=== PATIENT | female | born 1965 | race Caucasian/White ===

== ENCOUNTER → 2019-09-28 | Outpatient (CLI) | payer MEDICAID, MEDICARE ==
[~2019-09-28] MED LIST: AMLO10TA5 PO; CYCL10TA PO; MM S100C PO; MULTCAP PO; OMEP40CA97 PO; PREM0.452 PO; PROAAER10; SENN8.6T17 PO; SIMV20TA22 PO; TRAZ-163 PO
--- NOTE | 2019-09-28 15:05 | REP ---
CT CHEST WITH IV CONTRAST: COMPARISON: CT abdomen 09/23/2018 In the right upper lobe posteromedially on image 35, there is a 5 mm nodular density. In the lateral right lower lobe, there is a 4 mm nodular density on image 49. There is a band of parenchymal density in the right middle lobe which was not seen on the prior CT of the abdomen representing atelectasis or infiltrate. There is an oval peripheral bulla seen anteriorly in the right middle lobe as was present on prior study. A tiny 3 mm subpleural nodular density in the right costophrenic angle is stable. There is a mild nodular pleural thickening in the left major fissure. Subcentimeter subpleural nodular density in the left lower lobe inferiorly is stable as seen on image 82. Nonenlarged lymph nodes are seen in the axillary regions as well as in the mediastinum and hilar regions. No significant adenopathy is seen. There is a mild atherosclerotic calcification of the thoracic aorta without aneurysm. There is a hypodense nodule in the lower left thyroid measuring 2.5 x 1.4 cm. This should be further evaluated with ultrasound. The heart is normal in size. There is no pleural or pericardial effusion. A few tiny cysts are seen in the liver. The patient has had a prior cholecystectomy. Intrarenal calculus in the upper pole of the left kidney measures 8 mm in maximum diameter. There is a cyst in the anterior mid left kidney which measures approximately 3.6 cm in maximum diameter. IMPRESSION: In the right upper lobe, there is a 5 mm parenchymal nodular density and in the right lower lobe a 4 mm parenchymal nodular density. In the right middle lobe, there is a band of atelectasis or infiltrate not seen on the prior study of 09/23/2018. Recommend followup CT of the chest in 3-6 months. Nodule left lobe of the thyroid. Recommend thyroid ultrasound to further evaluate. Electronically Signed by John Kelly MD 09/28/2019 08:03 P
== END ==
LOC: M RAD 10:35
PROVIDERS: ATTEND Nurse Practitioner Family
DX: Z72.0 Tobacco use (principal)

== ENCOUNTER → 2019-10-10 | Outpatient (CLI) | payer MEDICARE, MEDICAID ==
[~2019-10-10] MED LIST changes: -TRAZ-163 PO; +TRAZ-257 PO
--- NOTE | 2019-10-11 02:41 | REP ---
Clinical: Thyroid nodule. Technique: Real time santizo scale and color evaluation using linear high frequency transducer. Findings: The right thyroid lobe measures 4.9 x 1.2 x 1.0 cm and appears essentially normal. The isthmus measures 1.2 mm in width. Too small nonspecific cysts are identified adjacent to the isthmus measuring 3.7 x 2.9 x 1.6 mm on the right and 2.2 x 2.2 x 1.1 mm on the left. The left thyroid lobe measures 5.4 x 1.6 x 1.8 cm and includes 5.8 x 4.0 x 2.7 mm nonspecific upper pole nodule and 30 x 26 x 16 mm complex lower pole cyst with mural soft tissue components. Impression: 1. Primary complex cystic lesion in the left lobe. 2. Smaller nodule and cysts as noted above. Electronically Signed by Aly Montgomery MD 10/11/2019 02:32 A
== END ==
LOC: M RAD 12:30
PROVIDERS: ATTEND Nurse Practitioner Family
DX: E04.1 Nontoxic single thyroid nodule (principal); Z28.29 Immunization not carried out because of patient decision for other reason

== ENCOUNTER → 2019-11-07 | Outpatient (REF) | payer MEDICARE, MEDICAID ==
[2019-11-07 16:33] LABS: FREE T4 1.07 NG/DL (0.76-1.46); THYROID STIMULATING HORMONE 2.11 uIU/ML (0.358-3.740)
== END ==
LOC: M LABDRAW1 15:28
PROVIDERS: ATTEND Nurse Practitioner Family
DX: E04.2 Nontoxic multinodular goiter (principal)

== ENCOUNTER → 2019-11-08 | Outpatient (REF) | payer MEDICARE, MEDICAID | LOC: M LAB REF 11:49 | PROVIDERS: ATTEND Internal Medicine Endocrinology, Diabetes & Metabolism | DX: E04.1 Nontoxic single thyroid nodule (principal) ==

== ENCOUNTER → 2019-11-29 | Outpatient (REF) | payer MEDICARE, MEDICAID | LOC: M LAB REF 13:06 | PROVIDERS: ATTEND Internal Medicine Endocrinology, Diabetes & Metabolism | DX: E04.1 Nontoxic single thyroid nodule (principal) ==

== ENCOUNTER → 2020-01-06 | Outpatient (CLI) | payer MEDICARE, MEDICAID ==
[~2020-01-06] MED LIST changes: +CYCL-707 PO; -CYCL10TA PO; +INCR1INH INH; +ISOVUE-370 76% 100ML VIAL (Q9967) As Ordered ONE
--- NOTE | 2020-01-06 11:58 | REP ---
REASON FOR EXAM: Followup COMPARISON: 09/28/2019 Contrast 100 mL Isovue 370. The mediastinum and pulmonary hilar are unchanged. There is no evidence of a mass or adenopathy. There are no pleural or pericardial effusions. The imaged upper abdomen and imaged osseous structures are unchanged. Evaluation of the lung goff shows no change in the 5 mm sized right upper lobe nodule. The 4 mm sized nodule in the right lower lobe is unchanged. The right middle lobe, curvilinear density is less prominent. There are no new abnormal nodules, masses, or opacities. There are a few tiny stable scattered pleural based nodules, the largest is in the left lower lobe measuring 5 mm. IMPRESSION: Stable CT examination of the chest as described above. According to the revised Fleischner society criteria, these nodules now classify as a category [address] screening is recommended. There are other chronic lymph node changes which are outside the revised Fleischner society criteria. These findings too are stable and can be followed up as clinically relevant. Electronically Signed by Lauro Caceres DO 01/06/2020 12:13 P
== END ==
LOC: M RAD 09:13
PROVIDERS: ATTEND Nurse Practitioner Family
DX: R91.1 Solitary pulmonary nodule (principal)
CPT/HCPCS: 71260; Q9967

== ENCOUNTER → 2020-02-18 | Outpatient (CLI) | payer MEDICARE, MEDICAID ==
[~2020-02-18] MED LIST changes: -ISOVUE-370 76% 100ML VIAL (Q9967) As Ordered ONE
== END ==
LOC: M LABSMTC 08:40
PROVIDERS: ATTEND Anesthesiology
DX: Z01.818 Encounter for other preprocedural examination (principal); Z11.59 Encounter for screening for other viral diseases
CPT/HCPCS: C9803; U0003

== ENCOUNTER 2020-02-21 13:19 | Day surgery (SDC) | payer MEDICARE, MEDICAID ==
[~2020-02-21] VITALS: Ht 165.1 cm; Wt 64.9 kg
[~2020-02-21 13:19] MED LIST changes: +NS 1,000 ML IV ONE
[2020-02-21] MEDS ORDERED: LIDOCAINE 2% 100MG/5ML SDV (FOR ANES.) As Ordered ONE (15:21)
[2020-02-21] MEDS ORDERED: propofoL 500 MG/50 ML VIAL As Ordered ONE (15:21)
[2020-02-21] MEDS ORDERED: fentaNYL 100 MCG/2 ML INJECTION (J3010) As Ordered ONE (15:21)
--- NOTE | 2020-02-21 15:45 | ROOR ---
Patient Name: Sakshi Rodriguez Procedure Date: 02/21/2020 3:13 PM Date of : 1965 Age: 54 Room: [facility] Gender: Female Note Status: Finalized Procedure: Upper GI endoscopy Indications: Epigastric abdominal pain, Persistent vomiting of unknown cause Providers: Kristopher Newman MD Referring MD: Rosalie BHAT MD Requesting Provider: Medicines: Monitored Anesthesia Care Complications: No immediate complications. Procedure: Pre-Anesthesia Assessment: - Prior to the procedure, a History and Physical was performed, and patient medications and allergies were reviewed. The patient is competent. The risks and benefits of the procedure and the sedation options and risks were discussed with the patient. All questions were answered and informed consent was obtained. Patient identification and proposed procedure were verified by the physician, the nurse and the anesthesiologist in the procedure room. Mental Status Examination: alert and oriented. Airway Examination: normal oropharyngeal airway and neck mobility. Respiratory Examination: clear to auscultation. CV Examination: normal. Prophylactic Antibiotics: The patient does not require prophylactic antibiotics. Prior Anticoagulants: The patient has taken no previous anticoagulant or antiplatelet agents. ASA Grade Assessment: II - A patient with mild systemic disease. After reviewing the risks and benefits, the patient was deemed in satisfactory condition to undergo the procedure. The anesthesia plan was to use monitored anesthesia care (MAC). Immediately prior to administration of medications, the patient was re-assessed for adequacy to receive sedatives. The heart rate, respiratory rate, oxygen saturations, blood pressure, adequacy of pulmonary ventilation, and response to care were monitored throughout the procedure. The physical status of the patient was re-assessed after the procedure. The Endoscope was introduced through the mouth, and advanced to the second part of duodenum. The upper GI endoscopy was accomplished without difficulty. The patient tolerated the procedure well. Findings: No gross lesions were noted in the entire esophagus. The Z-line was regular and was found 41 cm from the incisors. Scattered mild inflammation characterized by erythema, friability and granularity was found in the gastric antrum. Biopsies were taken with a cold forceps for Helicobacter pylori testing. Verification of patient identification for the specimen was done by the physician and nurse using the patient's name, date and medical record number. Estimated blood loss was minimal. The duodenal bulb and second portion of the duodenum were normal. Biopsies for histology were taken with a cold forceps for evaluation of celiac disease. Impression: - No gross lesions in esophagus. - Z-line regular, 41 cm from the incisors. - Gastritis. Biopsied. - Normal duodenal bulb and second portion of the duodenum. Biopsied. Recommendation: - Patient has a contact number available for emergencies. The signs and symptoms of potential delayed complications were discussed with the patient. Return to normal activities tomorrow. Written discharge instructions were provided to the patient. - High fiber diet. - Continue present medications. - Await pathology results. - Telephone GI clinic for pathology results in 2 weeks. - Return to primary care physician. Kristopher Newman MD Kristopher Newman MD 02/21/2020 3:45:23 PM Electronically signed by Kristopher Newman MD Number of Addenda: 0 Note Initiated On: 02/21/2020 3:13 PM Estimated Blood Loss: Estimated blood loss was minimal.
[2020-02-21 15:50] VITALS: BP 129/74
== END 2020-02-21 16:06 | disposition home or self-care (01) ==
LOC: M OPP 13:19
PROVIDERS: ATTEND Internal Medicine Gastroenterology
DX: K29.70 Gastritis, unspecified, without bleeding (principal); R10.13 Epigastric pain; R11.15 Cyclical vomiting syndrome unrelated to migraine; F17.210 Nicotine dependence, cigarettes, uncomplicated; Z79.899 Other long term (current) drug therapy; Z88.8 Allergy status to other drugs, medicaments and biological substances; Z91.048 Other nonmedicinal substance allergy status
CPT/HCPCS: 43239; 88305; J3010

== ENCOUNTER → 2020-05-14 | Outpatient (CLI) | payer MEDICARE, MEDICAID ==
[~2020-05-14] MED LIST changes: -AMLO10TA5 PO; +AMLO1TAB25 PO; -NS 1,000 ML IV ONE
--- NOTE | 2020-06-14 09:36 | REP ---
NONCONTRAST CHEST CT HISTORY: Other nonspecific abnormal finding of lung field. COMPARISON: Chest CT studies reviewed from 01/06/2020 and 09/28/2019. CT FINDINGS: There are multiple bilateral subcentimeter pulmonary nodules, all of which are unchanged from the 09/28/[address] study. The pleural-based subcentimeter nodule in the left lower lobe and a tiny nodule in the right lower lobe are visible on 09/23/2018. Images obtained during abdominal CT study as well and are unchanged. No new pulmonary nodules appreciated. No infiltrate or mass lesion is seen. There is some vascular calcification. Tiny small subcentimeter hepatic cysts are seen. There is an anterior mid pole left renal cyst measuring 3.6 cm in diameter. This is unchanged. The gallbladder is surgically absent. IMPRESSION: Lung-RADS Category [address] study suggested in one year. MTDD
== END ==
LOC: M RAD 07:51
PROVIDERS: ATTEND Internal Medicine Pulmonary Disease
DX: R91.8 Other nonspecific abnormal finding of lung field (principal); N28.1 Cyst of kidney, acquired

== ENCOUNTER → 2020-05-22 | Outpatient (REF) | payer MEDICARE, MEDICAID | LOC: M LAB REF 10:45 | PROVIDERS: ATTEND Internal Medicine Endocrinology, Diabetes & Metabolism | DX: E04.1 Nontoxic single thyroid nodule (principal) ==

== ENCOUNTER → 2020-06-18 | Outpatient (CLI) | payer MEDICARE, MEDICAID ==
--- NOTE | 2020-06-21 10:14 | REP ---
NUCLEAR GASTRIC EMPTYING SCAN DATE: 06/18/2020. HISTORY: Gastritis. PROCEDURE/FINDINGS: Following the oral administration of 1.08 millicuries of Technetium 99m sulfur colloid in two scrambled eggs and six ounces of water, multiple images of the upper abdomen are performed in the anterior and posterior projections for 90 minutes. Gastric activity is measured. At the end of the 90 minutes, 32% of the ingested activity has emptied from the stomach. The t1/2 is calculated to be 138 minutes. A normal t1/2 is 90 minutes or less. IMPRESSION: Mildly delayed gastric emptying. MTDD
== END ==
LOC: M RAD 07:57
PROVIDERS: ATTEND Internal Medicine Gastroenterology
DX: K29.70 Gastritis, unspecified, without bleeding (principal)
CPT/HCPCS: 78264; A9541

== ENCOUNTER → 2020-10-03 | Outpatient (CLI) | payer MEDICARE, MEDICAID ==
--- NOTE | 2020-10-05 07:52 | REP ---
INDICATION: PRIMARY OSTEOARTHRITIS, LEFT WRIST COMPARISON: None. TECHNIQUE: AP, lateral, bilateral oblique views left wrist. FINDINGS: The carpal bones, surrounding osseous structures, soft tissues, and joint spaces are essentially age-appropriate. No significant overt osteoarthritic changes are appreciated. However, subtle cortical irregularity and minimal joint space narrowing at the 1st carpometacarpal joint and radiocarpal joint space are suggested. There is no evidence for acute fracture or dislocation. No subcutaneous emphysema or radiodense foreign body. IMPRESSION: Essentially age-appropriate examination. Cannot exclude minimal arthritic changes at the radiocarpal joint space and 1st carpometacarpal joint. <Electronically signed by Aly Montgomery > 10/05/20 [id number]
== END ==
LOC: M RAD 14:36
PROVIDERS: ATTEND Nurse Practitioner Family
DX: M19.032 Primary osteoarthritis, left wrist (principal)

== ENCOUNTER → 2020-10-10 | Outpatient (CLI) | payer MEDICARE, MEDICAID ==
--- NOTE | 2020-10-10 17:17 | REP ---
INDICATION: TRENT SCR MAMMO/Z12.31. COMPARISON: 09/12/2016 [facility]. TECHNIQUE: MLO and CC views of bilateral breasts with tomosynthesis. FINDINGS: Moderate heterogeneous fibroglandular tissue is present bilaterally. No mass is seen. There appear to be tiny calcifications grouped together in the lateral left breast. Magnification views are recommended. The Volpara volumetric breast density pattern is C. IMPRESSION: BIRADS/ACR category 0, incomplete. Tiny calcifications in the lateral left breast for which magnification views are recommended. This patient's Tyrer-Cuzick lifetime breast cancer risk assessment score is 7.3%. This mammogram was interpreted with the aid of an FDA-approved computer-aided detection system. The patient states she had a clinical breast exam in over 1 year ago. The patient letter being requested is M0. RECOMMENDATION: Recommend magnification views left breast as discussed above. <Electronically signed by John Kelly > 10/10/20 1333
== END ==
LOC: M WHC 11:14
PROVIDERS: ATTEND Nurse Practitioner Family
DX: R92.2 Inconclusive mammogram (principal); N60.02 Solitary cyst of left breast

== ENCOUNTER → 2020-10-29 | Outpatient (CLI) | payer MEDICARE, MEDICAID ==
--- NOTE | 2020-10-29 10:26 | REP ---
INDICATION: ADDL VIEWS LEFT BREAST. Recent screening study was M0 because of possible microcalcifications in the left breast. Diagnostic imaging was recommended. COMPARISON: Comparison mammography 10 October 2020 and 12 September 2016. TECHNIQUE: Magnified focal spot-compression CC, mL, and MLO views of the left breast are obtained. This mammogram was interpreted with the aid of an FDA-approved computer-aided detection system. FINDINGS: Magnified focal spot-compression views confirm the presence of a grouping of 6 to 7 polymorphic microcalcifications in approximately the 1 o'clock position in the left breast. These are quite small. There believed to be new and must be considered suspicious. There are not well seen on the CC view but are visualized clearly on mL and MLO projection images today. They were visible on the original CC view. . Left breast parenchyma is otherwise unremarkable.: IMPRESSION: BIRADS/ACR category 4 suspicious left breast mammographic imaging features.. Histologic sampling recommended. This patient's Tyrer-Cuzick lifetime breast cancer risk assessment score is 7.3%. RECOMMENDATION: Stereotactic needle biopsy left breast 1 o'clock position for microcalcifications. Marker clip placement and post clip placement left breast mammography recommended.. The patient letter being requested is M4. <Electronically signed by Lopez Jonas > 10/29/20 [id number]
== END ==
LOC: M WHC 09:42
PROVIDERS: ATTEND Nurse Practitioner Family
DX: Z12.31 Encounter for screening mammogram for malignant neoplasm of breast (principal)

== ENCOUNTER → 2020-11-13 | Outpatient (CLI) | payer MEDICARE, MEDICAID ==
[2020-11-13 09:50] VITALS: BP 122/68
--- NOTE | 2020-11-13 14:34 | REP ---
INDICATION: LT BREAST MICROCALCIFICATIONS,POST STEREOTACTIC BIOPSY. COMPARISON: 10/29/2020. TECHNIQUE: ML and CC views left breast performed following stereotactic biopsy of microcalcifications. FINDINGS: Biopsy clip is seen in the left breast in the region of the previously identified microcalcifications. IMPRESSION: Appropriate biopsy clip placement at the site of stereotactic biopsy of previously identified microcalcifications in the left breast. RECOMMENDATION: Clinical follow-up. <Electronically signed by John Kelly > 11/13/20 [id number]
--- NOTE | 2020-11-13 14:35 | REP ---
INDICATION: LT BREAST MICROCALCIFICATIONS,STEREOTACTIC BIOPSY. COMPARISON: 10/29/2020. TECHNIQUE: Specimen radiographs performed following stereotactic biopsy of clustered microcalcifications previously identified in the left breast. FINDINGS: Multiple pleomorphic microcalcifications are seen in the specimens. IMPRESSION: Successful sampling of pleomorphic microcalcifications left breast via stereotactic biopsy. RECOMMENDATION: Clinical follow-up. <Electronically signed by John Kelly > 11/13/20 [id number]
--- NOTE | 2020-11-13 15:56 | REP ---
INDICATION: LT BREAST MICROCALCIFICATIONS,STEREOTACTIC BIOPSY. COMPARISON: None. TECHNIQUE: The procedure was performed under the direct supervision of Dr. Kelly. The patient has a history of a grouping of 6-7 poly more fixed microcalcifications in approximately the 1 o'clock position of the left breast seen on a previous mammogram dated 10/29/2020. The risks and benefits of the procedure were explained to the patient and informed consent was obtained. A craniocaudal approach was utilized. The calcifications were localized using stereotactic mammographic guidance. 1% Xylocaine was used as a local anesthetic. A 10 gauge, suction assisted Mammotome needle was inserted and 7 core biopsy samples were obtained. Specimen radiograph demonstrates the presence of calcifications to be within the specimen. A marker clip (HydroMARK shape 3) was placed at the biopsy site. The patient tolerated the procedure well and there were no immediate complications. After the appropriate amount of monitored convalescence, the patient was discharged from the department. FINDINGS: None IMPRESSION: Stereotactic left breast biopsy with marker clip placement (HydroMARK shape 3). <Electronically signed by Josue Quintero > 11/13/20 1011 <Electronically signed by John Kelly > 11/13/20 [id number]
== END ==
LOC: M WHCPRO 08:19
PROVIDERS: ATTEND Nurse Practitioner Family
DX: N60.22 Fibroadenosis of left breast (principal); N63.21 Unspecified lump in the left breast, upper outer quadrant

== ENCOUNTER 2020-12-19 19:29 | Emergency (ER) | payer MEDICARE, MEDICAID ==
[~2020-12-19] VITALS: Ht 165.1 cm; Wt 67.4 kg
[2020-12-19] MEDS ORDERED: PANT40TA29 PO (19:43)
[2020-12-19] MEDS ORDERED: NS 500 ML IV ONE (20:25)
[2020-12-19] MEDS ORDERED: ONDANSETRON 4MG/2ML VIAL IV ONE (20:25)
[2020-12-19 20:42] LABS: BASO # 0.1 10^3/uL (0.0-0.2); BASO % 0.5 % (0.0-1.0); EOS # 0.1 10^3/uL (0.0-0.5); EOS % 0.8 % (0.0-3.0); HEMATOCRIT 42.9 % (36.0-47.0); HEMOGLOBIN 14.4 g/dl (12.0-15.5); LYMPH # 1.5 10^3/uL (1.5-5.0); LYMPH % 14.1 % (24.0-44.0); MEAN CORPUSCULAR HEMOGLOBIN 30.1 pg (27.0-33.0); MEAN CORPUSCULAR HGB CONC 33.6 g/dl (32.0-36.5); MEAN CORPUSCULAR VOLUME 89.6 fl (80.0-96.0); MONO # 0.4 10^3/uL (0.0-0.8); MONO % 3.7 % (2.0-8.0); NEUTROPHILS # 8.3 10^3/uL (1.5-8.5); NEUTROPHILS % 80.5 % (36.0-66.0); PLATELET COUNT, AUTOMATED 367 10^3/uL (150-450); RED BLOOD COUNT 4.79 10^6/uL (4.00-5.40); WHITE BLOOD COUNT 10.3 10^3/uL (4.0-10.0)
[2020-12-19 21:09] LABS: ALBUMIN 4.1 GM/DL (3.2-5.2); ALT/SGPT 14 U/L (12-78); BILIRUBIN,DIRECT 0.1 MG/DL (0.0-0.2); BILIRUBIN,TOTAL 0.4 MG/DL (0.2-1.0); BLOOD UREA NITROGEN 14 MG/DL (7-18); CALCIUM LEVEL 9.5 MG/DL (8.5-10.1); CARBON DIOXIDE LEVEL 27 MEQ/L (21-32); CHLORIDE LEVEL 108 MEQ/L (98-107); GLOMERULAR FILTRATION RATE > 60.0 (>51); GLUCOSE, FASTING 112 MG/DL (70-100); LIPASE 76 U/L (73-393); POTASSIUM SERUM 3.6 MEQ/L (3.5-5.1); SODIUM LEVEL 140 MEQ/L (136-145); TOTAL PROTEIN 7.6 GM/DL (6.4-8.2)
[2020-12-19] MEDS ORDERED: ISOVUE-370 76% 100ML VIAL As Ordered ONE (21:55)
--- NOTE | 2020-12-19 23:01 | REPVR ---
PROCEDURE INFORMATION: Exam: CT Abdomen And Pelvis With Contrast Exam date and time: 12/19/2020 10:22 PM Age: 55 years old Clinical indication: Vomiting TECHNIQUE: Imaging protocol: Computed tomography of the abdomen and pelvis with contrast. Radiation optimization: All CT scans at this facility use at least one of these dose optimization techniques: automated exposure control; mA and/or kV adjustment per patient size (includes targeted exams where dose is matched to clinical indication); or iterative reconstruction. Contrast material: ISOVUE 370; Contrast volume: 100 ml; Contrast route: INTRAVENOUS (IV); COMPARISON: CT ABD PELVIS WITH CONTRAST 09/23/2018 4:01 PM FINDINGS: Lungs: No suspicious mass or airspace process in the visualized lung bases. Liver: Liver is unremarkable aside from small hepatic cysts measuring less than 1 cm. Gallbladder and bile ducts: Gallbladder is surgically absent. Pancreas: Pancreas appears normal. No focal mass or peripancreatic inflammation. Spleen: Spleen appears homogeneous without focal mass. Adrenal glands: Adrenal glands are normal in appearance. Kidneys and ureters: Kidneys are unremarkable aside from simple fluid density cysts measuring up to 3.5 cm, which require no specific follow-up, and a nonobstructive upper pole left renal calculus. Stomach and bowel: No evidence of small bowel obstruction. Multiple fluid-filled loops of nondilated bowel with enhancing mucosa are present. Sparse colonic diverticula are present without evidence of inflammation. Appendix: Normal caliber appendix is identified, with no adjacent inflammation. Intraperitoneal space: No pneumoperitoneum. Vasculature: No aortic aneurysm. Main portal and splenic veins enhance normally. Lymph nodes: No enlarged lymph nodes. Urinary bladder: Urinary bladder appears normal. Reproductive: Uterus is surgically absent. Bones/joints: Bony structures show no acute fracture or destructive process. Soft tissues: No concerning focal abnormality of the extra-abdominal and pelvic soft tissues. IMPRESSION: Pattern of small bowel and proximal colon suggests mild inflammatory or infectious enteritis without obstruction Electronically signed by: Shawn Javier On 12/19/2020 23:02:11 PM
[2020-12-19] MEDS ORDERED: metroNIDAZOLE (FLAGYL) 500MG TABLET PO ONE (23:25)
[2020-12-19] MEDS ORDERED: CIPROFLOXACIN 500MG TABLET PO ONE (23:25)
[2020-12-19] MEDS ORDERED: METR-265 PO (23:31)
[2020-12-19] MEDS ORDERED: REGL5TAB2 PO (23:31)
[2020-12-19] MEDS ORDERED: CIPR-249 PO (23:31)
[2020-12-20] VITALS: BP 143/84
== END 2020-12-20 00:06 | disposition home or self-care (01) ==
LOC: M ED 19:29
DX: K52.9 Noninfective gastroenteritis and colitis, unspecified (principal); I10 Essential (primary) hypertension; E78.5 Hyperlipidemia, unspecified; J44.9 Chronic obstructive pulmonary disease, unspecified; F17.200 Nicotine dependence, unspecified, uncomplicated; Z91.048 Other nonmedicinal substance allergy status; Z88.8 Allergy status to other drugs, medicaments and biological substances; Z79.899 Other long term (current) drug therapy
CPT/HCPCS: 74177; 80048; 80076; 83690; 85025; 88304; 96361; 96374; 99284; J2405; Q9967

== ENCOUNTER 2021-07-16 13:23 | Observation (INO) | payer MEDICARE, MEDICAID ==
[~2021-07-16] VITALS: Ht 165.1 cm; Wt 66.2 kg
[~2021-07-16 13:23] MED LIST changes: +CIPR-249 PO; +METR-265 PO; +OMEP40CA4 PO; -OMEP40CA97 PO; +PANT40TA29 PO; +REGL5TAB2 PO
--- OUTSIDE RECORDS SUMMARY | 2021-07-16 13:30 | CCD ---
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 [phone] Roxanne MACEDO, Rosalie Aguilar PP [phone] Florentino MACEDO, Amari Short Unavailable Unavailable Reason for Referral No Reason for Referral Recorded Problems Includes: Active, inactive, and resolved Problems All Visits Onset Date - Time Resolved Date - Time Provider Co ndition Status Gastroparesis 10/03/2020 - 10:54AM Diane M Muha [employer]- BC Active Nontoxic Solitary Thyroid Nodule 11/09/2019 - 12:00AM Diane M Muha [employer]-BC Active Note: - Dr. Griggs, US shows s olid left nodule, pending biopsy, 11/09/2019 Lung Neoplasm Uncertain Behavior 11/03/2019 - 12:00AM Diane M Muha [employer]-BC Active Note: - Following with Dr. Jovany baires, several small nodules less than 4-5mm. 01/06/2020- CT stable, yearly CT recommended. Probable Chronic Obstructive Pulmonary Disease 09/22/2019 - 12:0 0AM Diane M Muha [employer]-BC Active Esophageal Reflux 09/22/2019 - 12:00AM Diane M Muha [employer]-BC Active Note: , +HPylori, Upper GI- April 2019. Treated by GI. 11/2019- Repeat EGD pending- considering functional dyspepsia vs PUD, vs Marijuana use syndrome. Abnormal Weight Loss 09/22/2019 - 12:00AM Diane Yousif Mu samaniego [employer]-BC Active Note: - 22 pounds 05/2019-2018 Post-artificial Menopause State Symptomatic 05/25/2019 - 12:00AM Diane M Muha [employer]-BC Active Constipation 08/24/2018 - 12:00AM Rosalie Oliveira MD Active Generalized Anxiety Disorder 08/24/2018 - 12:00AM Giovanna Oliveira MD Active Essential Hypertension 08/24/2018 - 12:00AM Rosalie Oliveira MD Active Intervertebral Disc Degeneration - Lumbar 08/24/2018 - 12:00AM Rosalie Oliveira MD Active Hyperlipidemia 08/24/2018 - 12:00AM Rosalie Yousif D Active Nicotine-related Disorders 08/24/2018 - 12:00AM Ruy Oliveira MD Active Plan of Treatment Future Appointments Date Time Location Provider followup 02/09/2021 8:40AM [facility], [facility] Carly Linares [facility] ANNUAL PE-followup 10/02/2021 9:20AM [facility], [facility] Diane Yousif [facility]- followup 10/02/2021 9:20AM [facility], [facility] Diane Yousif [facility] Annual Wellness SUBSEQUENT visi t(> 1yr since prev. 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 Push fluids and rest. Saline nasal spray to thin secretions and encourage drainage. Follow up with PCP if persistent or high fever, increased work of breathing, persistent pain, if sxs not improving, or if concerned urgent visit with Lucien Delarosa PA-C 12/09/2018 Assessments Includes: Assessments for all patient encounters Findings Encounter Date Essential hypertension , reduce to 2.5 m g as she is having some dizziness, occasional low blood pressures followup with Lucien Delarosa PA-C 01/12/2021 Gastroparesis , refer to GI doc in [place] . She would like another opinion for long standing GI issues. She has been seeing Dr. Newman and has had continued struggles with abdominal pain followup with Lucien Delarosa PA-C 01/12/2021 Tendonitis vs. other. Left wrist/hand. Provided apurva's left wrist brace today. She does have history of fall on outstretched left hand over the winter with negative xrays in September. Her discomfort is improved with wearing a brace but she states the metal in the splint bothers her so she has stopped wearing it. She will ice/rest and wear brace for one month and follow up for evaluation. If discomfort still present will consider referral/further testing followup with Lucien Delarosa PA-C 01/12/2021 Routine adult history and physical (18 - 64 yrs) [facility] Essential hypertension which is well-controlled follow up with Diane Yousif [facility] 10/01/2020 Ganglion of the left wrist - appearance is somewhat larger than a ganglion. Symptoms however are consistent. Discussed getting a xray of the left wrist. Possibly could be a area of swelling from a tendonitis. She is wearing a splint which does improve the pain. I have encouraged her to continue wearing the splint. She is unable to take NSAIDS. Will refer to Ortho if pain does not improve. She will get xray this week followup with Diane Hu [facility] 10/01/2020 Hyperlipidemia which is well-controlled followup with Ethel Yousif [facility] 10/01/2020 Localized osteoarthritis of left wrist followup with Diane Yousif [facility] 10/01/2020 Nicotine related disorders which is unchanged followup with Diane Yousif [facility] 10/01/2020 Nicotine dependence Annual Wellness SUBSEQUEN T visi t(> [facility]yr [facility] Routine adult history and physical (18 - 64 yrs) [facility] Wellness SUBSEQUENT visi t(> 1yr since prev. with Diane Yousif [facility] 10/01/2020 Acute sinusitis telephone conversation with Diane Marquez [facility] 07/18/2020 Abnormal weight loss which is inadequate ly controlled Continues to lose weight, work-up negative to date. Continue work-up per pulmonology, endocrinology, and GI [Abnormal weight loss] Telehealth communication with Rosalie Oliveira MD 06/08/2020 Symptomatic post-artificial menopause st ate which is stable Stopped premarin, but then resumed and realized it does help. Previously declined SSRI/SNRI for hot flashes/mood swings but she declines as she has not liked the effect of lexapro in the past. Did not tolerate gabapentin. Sleeping better on trazodone. Continue current management [Other specified menopausal and perimenopausal disorders] Telehealth communication with Rosalie Oliveira MD 05/22 Abnormal weight loss which is inadequate ly controlled Continues to lose weight, work-up negative to date. Continue work-up per pulmonology, endocrinology, and GI [Abnormal weight loss] followup with Rosalie Oliveira MD 04/06/2020 Chronic obstructive pulmonary disease wh ich is stable Following with pulmonology. Tobacco cessation counseling provided today [Chronic obstructive pulmonary disease, unspecified] followup with Rosalie Oliveira MD 04/06/2020 Essential hypertension which is well-con trolled Stable on amlodipine [Essential (primary) hypertension] followup with Rosalie Oliveira MD 04/06/2020 Localized primary osteoarthritis of carp ometacarpal joint which is worsening Advise rest, ice, NSAID prn pain/inflammation. Will obtain x-ray and refer to ortho [Unilateral primary osteoarthritis of first carpometacarpal joint, right hand] followup with Rosalie Oliveira MD 04/06/2020 Nicotine related disorders tobacco cess ation counseling provided today [Nicotine dependence, cigarettes, uncomplicated] followup with Rosalie Oliveira MD 04/06/2020 Symptomatic post-artificial menopause st ate which is inadequately controlled Patient would like to taper off of premarin as she does not feel it is helping. Discussed trial of SSRI/SNRI for hot flashes/mood swings but she declines as she has not like the effect of lexapro in the past. She is willing to try gabapentin qhs. RTC in 6 weeks for follow-up [Other specified menopausal and perimenopausal disorders] followup with Rosalie Oliveira MD 04/06/2020 Abnormal weight loss Continues to lose weight, work-up negative to date. Continue work-up per pulmonology, endocrinology, and GI [Abnormal weight loss] telephone conversation with Rosalie Oliveira MD 01/04/2020 Chronic obstructive pulmonary disease T obacco cessation counseling provided today [Chronic obstructive pulmonary disease, unspecified] telephone conversation with Rosalie Oliveira MD 01/04/2020 Essential hypertension which is well-con trolled Hypotensive symptoms s/p significant weight loss. Will dc amlodipine. Follow-up in 3 months in office [Essential (primary) hypertension] telephone conversation with Rosalie Lucia MD 01/04/2020 Lumbago Will try diclofenac gel telephone conversatio n with Rosalie Oliveira MD 01/04/2020 Nicotine related disorders tobacco cess ation counseling provided today [Nicotine dependence, cigarettes, uncomplicated] telephone conversation with Rosalie Oliveira MD 01/04/2020 Symptomatic post-artificial menopause st ate Stable on premarin. She is aware of the multiple side effects of using hormone replacement, I have provided her with the risks involved and specifically covered DVT and PE due to her current smoking status. She expresses understanding of risks [Other specified menopausal and perimenopausal disorders] telephone conversation with Rosalie Oliveira MD 01/04/2020 Abnormal weight loss - 22 pounds since May 2019, early satiety. Most recent labs are unremarkable. Will get UA to rule out any bladder/ urinary disease Gynecology with Diane Hu [facility] 09/22/2019 Cough - Started three months ago. Debi rns discussed including new onset cough, weight loss and night sweats. CXR done in November 2018 was negative. Discussed doing zithromax to treat any underlying mycloplasm however with her other symptoms additional evaluation is warranted. We will get a Chest CT and do close follow up Gynecology with Diane Hu [facility] 09/22/2019 Essential hypertension which is well-controlled Gyneco logy with Diane Hu [facility] 09/22/2019 Nicotine related disorders - Encouraged to quit smoking. She is not interested in medication therapy for assistance and states she has cut down on her smoking. She is aware of the [facility] Quit line Gynecology with Diane Hu [facility] 09/22/2019 Probable chronic obstructive pulmonary disease Gynecol ogy with Diane Hu [facility] 09/22/2019 Routine adult history and physical (18 - 64 yrs) [facility] An nual INITIAL Wellness visit (enrolled >1year) with Diane Yousif Mayte [facility] 09/22/2019 Essential hypertension which is well-controlled follow up with Diane Yousif Mayte [facility] 05/25/2019 Symptomatic post-artificial menopause st ate - Change her medication to estrace which is found to be on her formulary. Will start with Estrace 0.5mg po daily over the next one month and increase to 1mg if the starting dose is no effective. She will notify the office in one month. She is aware of the multiple side effects of using hormone replacement, I have provided her with the risks involved and specifically covered DVT and PE due to her current smoking status [facility] Lobar pneumonia , likely urgent visit with Lucien Delarosa PA-C 0 12/09/2018 Acute bronchitis sick visit with Diane Yousif Mayte [facility] Constipation Follow-up with GI [Other constipation] f ollowup with Rosalie Oliveira MD 08/24/2018 Essential hypertension Stable, continue current management [Essential (primary) hypertension] followup with Rosalie Oliveira MD 08/24/2018 Generalized anxiety disorder Stable, co ntinue current management. RTC in 3-6 months for annual exam [Generalized anxiety disorder] followup with Rosalie Oliveira MD 08/24/2018 Hyperlipidemia Obtain lipid profile, co ntinue simvastatin [Mixed hyperlipidemia] followup with Rosalie Oliveira MD 08/24/2018 Nicotine related disorders Tobacco cess ation counseling provided today [Nicotine dependence, cigarettes, uncomplicated] followup with Rosalie Oliveira MD 08/24/2018 Abdominal pain--epigastric urgent visit with Lucien Delarosa PA-C 07/28/2018 Hematochezia urgent visit with Lucien Delarosa PA-C 2017 Instructions Instructions not supported for this document typeNo Instructions Recorded Medical Equipment - Implanted Devices Includes: Current and historical DevicesNo Medical Equipment Recorded Medications Includes: Current and historical Medications Current Medications (continue as prescribed) amLODIPine Besylate 2.5 MG Oral Tablet 01/12/2021 P rovider: Lucien Delarosa PA-C Diagnosis: one PO daily Metoclopramide HCl 5 MG Oral Tablet 01/12/2021 Prov ider: Lucien Isaura PA-C Diagnosis: Take one tablet PO> Simvastatin 20 MG Oral Tablet 10/17/2020 - 10/12/2021 Provid er: Rosalie Oliveira MD Diagnosis: 1 PO QD Cyclobenzaprine HCl 10 MG Oral Tablet 08/13/2020 - 1 Provider: Diane Hu [facility] Diagnosis: 1 PO QD traZODone HCl 150 MG Oral Tablet 08/06/2020 - 02/02/2021 Pro vider: Diane Hu [facility] Diagnosis: 1 tab po hs. Premarin 0.45 MG Oral Tablet 06/08/2020 Provider: Rosalie Oliveira MD Diagnosis: 1 tab po daily Gabapentin 100 MG Oral Capsule 04/06/2020 Provider: Rosalie Oliveira MD Diagnosis: 1 PO QHS Omeprazole 40 MG Oral Capsule Delayed Release 02/14/2020 Provider: Rosalie Oliveira MD Diagnosis: 1 PO QD Diclofenac Sodium 1% Transdermal Gel 01/04/2020 Pro vider: Rosalie Oliveira MD Diagnosis: apply topically QID Incruse Ellipta 62.5 MCG/INH Inhalation Aerosol Powder Breath Activated 12/23/2019 Provider: Jameson Fajardo MD Diagnosis: ProAir HFA 108 (90 Base)MCG/ACT Inhalation Aerosol Solution 06/01/2019 Provider: Diane Nica Mayte [facility] Diagnosis: 2 puffs every 4 horus as needed for wheezing. Senokot 8.6MG Oral Tablet 12/02/2018 Provider: Diagnosis: daily Colace 100MG Oral Capsule 12/02/2018 Provider: Diagnosis: 2 po daily Past Medications on file amLODIPine Besylate 5 MG Oral Tablet 10/01/2020 - 01/12/2021 Provider: Diagnosis: Simvastatin 20 MG Oral Tablet 07/25/2020 - 10/17/2020 Provid er: Rosalie Oliveira MD Diagnosis: 1 PO QD Amoxicillin-Pot Clavulanate 875-125 MG Oral Tablet 0 - 07/28/2020 Provider: iDane Hu [facility] Diagnosis: 1 tab po bid amLODIPine Besylate 10 MG Oral Tablet 03/06/2020 - 1 Provider: Rosalie Oliveira MD Diagnosis: 1 PO QD Premarin 0.45 MG Oral Tablet 03/05/2020 - 06/08/2020 Provide r: Diane Hu [employer]-BC Diagnosis: 1 tab po daily Simvastatin 20 MG OR TABS 12/24/2019 - 04/06/2020 Provider: Diane Hu [employer]-BC Diagnosis: 1 PO QD Premarin 0.45 MG Oral Tablet 11/21/2019 - 09/22/2019 Provide r: Rosalie Oliveira MD Diagnosis: 1 tab po daily Premarin 0.45 MG Oral Tablet 11/14/2019 - 11/09/2019 Provide r: Rosalie Oliveira MD Diagnosis: 1 tab po daily amLODIPine Besylate 10 MG Oral Tablet 11/11/2019 - 0 Provider: Diane Hu [employer]ER Diagnosis: traZODone HCl 150 MG Oral Tablet 11/11/2019 - 07/18/2020 Pro vider: Diane Hu [employer]-BC Diagnosis: 1 tab po hs. Azithromycin 250 MG Oral Tablet 09/22/2019 - 09/27/2019 Prov ider: Diane Hu [employer]-BC Diagnosis: 2 tabs po today then 1 tab po daily. Cyclobenzaprine HCl 10 MG Oral Tablet 09/22/2019 - 0 Provider: Diane Hu [employer]-BC Diagnosis: 1 PO QD amLODIPine Besylate 10 MG Oral Tablet 09/22/2019 - 0 Provider: Diane Hu [employer]-BC Diagnosis: 1 PO QD Premarin 0.45 MG Oral Tablet 08/13/2019 - 01/04/2020 Provide r: Diagnosis: 1 tab po daily traZODone HCl 150MG Oral Tablet 06/17/2019 - 09/22/2019 Prov ider: Diane Hu [employer]-BC Diagnosis: 1 tab po hs. Ventolin HFA 108 (90 Base)MCG/ACT Inhalation Aerosol S olution 05/31/2019 - 05/31/2019 Provider: Diane Hu [employer]-BC Diagnosis: [id number] prn 1 puff q4-6hrs prn shortness of breath/wheezing Estradiol 0.5MG Oral Tablet 05/25/2019 - 09/21/2019 Provider : Diane Hu [employer]-BC Diagnosis: 1 tab po daily Simvastatin 20MG Oral Tablet 05/25/2019 - 05/25/2019 Provide r: Diane Hu [employer]BC Diagnosis: 1 PO QD Simvastatin 20MG Oral Tablet 05/20/2019 - 05/25/2019 Provide r: Diane Hu [facility] Diagnosis: 1 PO QD Simvastatin 20MG Oral Tablet 05/20/2019 - 12/02/2018 Provide r: Diane Hu [facility] Diagnosis: 1 PO QD Omeprazole 40MG Oral Capsule Delayed Release 01/28/2019 - Provider: Rosalie Oliveira MD Diagnosis: 1 PO QD Cefuroxime Axetil 500MG Oral Tablet 12/09/2018 - 12/19/2018 Provider: Lucien SMARTC Diagnosis: Lobar pneumonia, uns pecified organism Take 1 tablet bid for 10 days Doxycycline Hyclate 100MG Oral Capsule 12/02/2018 - 12/13/19 Provider: Diane Hu [facility] Diagnosis: 1 cap po bid x 10 days. traZODone HCl 150MG Oral Tablet 12/02/2018 - 05/25/2019 Prov ider: Diane Hu [facility] Diagnosis: 1 tab po hs. Cyclobenzaprine HCl 10MG Oral Tablet 11/08/2018 - 09/22/2019 Provider: Rosalie Oliveira MD Diagnosis: 1 PO QD TraZODone HCl 100MG Oral Tablet 11/08/2018 - 11/25/2018 Prov ider: Rosalie Oliveira MD Diagnosis: 1 PO QD AmLODIPine Besylate 10MG Oral Tablet 11/05/2018 - 09/22/2019 Provider: Rosalie Oliveira MD Diagnosis: 1 PO QD Cyclobenzaprine HCl 10MG Oral Tablet 11/05/2018 - 08/24/2018 Provider: Rosalie Oliveira MD Diagnosis: 1 PO QD Simvastatin 20MG Oral Tablet 11/05/2018 - 12/02/2018 Provide r: Rosalie Oliveira MD Diagnosis: 1 PO QD Omeprazole 40MG Oral Capsule Delayed Release 11/05/2018 - Provider: Rosalie Oliveira MD Diagnosis: 1 PO QD Premarin 0.45MG Oral Tablet 10/18/2018 - 05/24/2019 Provider : Rosalie Oliveira MD Diagnosis: one tablet daily. Ventolin HFA 108 (90 Base)MCG/ACT Inhalation Aerosol S olution 08/24/2018 - 05/25/2019 Provider: Diagnosis: [id number] prn 1 puff q4-6hrs prn shortness of breath/wheezing Cyclobenzaprine HCl 10MG Oral Tablet 07/16/2018 - 08/24/2018 Provider: Diagnosis: TraZODone HCl 100MG Oral Tablet 07/16/2018 - 08/24/2018 Prov ider: Diagnosis: Premarin 0.45MG Oral Tablet 07/16/2018 - 08/24/2018 Provider : Diagnosis: Simvastatin 20MG Oral Tablet 07/16/2018 - 08/24/2018 Provide r: Diagnosis: AmLODIPine Besylate 10MG Oral Tablet 07/16/2018 - 08/24/2018 Provider: Diagnosis: Omeprazole 40MG Oral Capsule Delayed Release 07/16/2018 - Provider: Diagnosis: Medications Administered Includes: Administered Medications in patient's chartNo Administered Medications Recorded Vital Signs Includes: Vital Signs from 01/17/2020 through 01/16/2021 Vital Name 01/12/2021 09:52A 10/01/2020 09:12A 10/01/2020 09:10A 10/01/2020 09:09A 07/18/2020 01:35P Blood Pressure Sitting L 102/68 BP Cuff Size Regular Pulse Rate-Sitting (bpm) 56 72 72 72 Respiration Rate (breaths/min) 20 18 18 18 Height (in) 64.75 64.75 64.75 64.75 64.75 Weight (lb) 147.5 150 150 150 Body Mass Index (kg/m2) 24.7 25.2 25.2 25.2 Body Surface Area (m2) 1.73 1.75 1.75 1.75 Blood Pressure Sitting (mmHg) 120/82 120/82 120/82 Temp-Tympanic (F) 98 98 98 Oxygen Saturation (%) 98 98 98 Vital Name 06/08/2020 02:24P 04/06/2020 10:25A Pulse Rate-Sitting (bpm) 87 74 Respiration Rate (breaths/min) 20 Height (in) 64.75 64.75 Weight (lb) 142 141 Body Mass Index (kg/m2) 23.8 23.6 Body Surface Area (m2) 1.71 1.70 Blood Pressure Sitting (mmHg) 125/84 104/78 Results Includes: Results from 01/17/2020 through 01/16/2021 LIPID PANEL [facility] Ordered by Rosalie Oliveira MD on 09/29/2020 Collected: 09/29/2020 Reported: 09/29/2020 09:07 Cholesterol 183 MilliGramsPerDeciLiter_[Mass_Concentration_Units] (120-200) N (Normal) Note: Responsible Observer: Cholesterol Cholesterol 400.3100 (G) HDL Cholesterol 51 MilliGramsPerDeciLiter_[Mass_Concentration_Units] None Note: HDL Less than 40 mg/dL: Major ris k for CHDHDL Greater than 59 mg/dL: Low risk for CHDResponsible Observer: HDL HDL Cholesterol 400.3150 (H) LDL Cholesterol, Calc 109 MilliGramsPerDeciLiter_[Mass_Concentration_Units] (0-100) H (High) Note: Responsible Observer: LDL CHOL MARCO C LDL Cholesterol, Calculated 400.3155 (F) Triglycerides 119 MilliGramsPerDeciLiter_[Mass_Concentration_Units] (0-150) N (Normal) Note: Responsible Observer: Triglyceride s Triglycerides 400.2951 (G) Reviewed by Rosalie Oliveira MD on 10/01; All test results are final unless otherwise noted. Reported Physicians [facility] Ordered by Rosalie Oliveira MD on 09/29/2020 Collected: 09/29/2020 Reported: 09/29/2020 09:08 Reported Physicians See Note None Note: Reported Physicians:Ordering: Jimmie CANNON: Breanne MERRITT To: Rosalie Oliveira Reviewed by Rosalie Oliveira MD on 10/01; All test results are final unless otherwise noted. CBC W AUTO DIFF [facility] Ordered by Rosalie Oliveira MD on 09/29/2020 Collected: 09/29/2020 Reported: 09/29/2020 08:14 MCV BldCo Auto 92.1 FemtoLiter_[SI_Volume_Units] (80-96) N (Normal) Note: Responsible Observer: MCV MCV 100 .0600 (B) RDW RBC Auto 13 percent (11-15) N (Normal) Note: Responsible Observer: RDW RDW 100 .0900 (B) Manual diff Bld NO None Note: Responsible Observer: CBC Manual D ifferential Added 100.1990 (B) PMV Bld 8.2 FemtoLiter_[SI_Volume_Units] (9.1-13.1) L (Low) Note: Responsible Observer: MPV MPV 100 .1100 (B) Imm Granulocytes Bld Ql Auto See Note (0-2) N (Normal) Note: [id number] Ob observer helper: IG% IG% 100.1375 (B) Hct VFr Bld Auto 41.8 percent (37-47) N (Normal) Note: Responsible Observer: HEMATOCRIT H EMATOCRIT 100.0500 (B) MCHC BldCo-mCnc 33.0 GramsPerDeciLiter_[Mass_Concentration_Units] (33-37) N (Normal) Note: Responsible Observer: MCHC MCHC 1 00.0800 (B) Imm Granulocytes # Bld Auto 0.0 Unit (0-0.1) None Note: Responsible Observer: IG# IG# 100 .1400 (B) Monocytes/leuk NFr Bld Auto 6.8 percent (4-12) N (Normal) Note: Responsible Observer: MONO % MONO % 100.1225 (B) Hgb Bld-sCnc 13.8 GramsPerDeciLiter_[Mass_Concentration_Units] (10.7-15.4) N (Normal) Note: Responsible Observer: HGB HEMOGLOB IN 100.0400 (B) WBC # Bld Auto 10.2 ThousandsPerMicroLiter_[Number_Concentration_Units] (4.45-10 .71) N (Normal) Note: Responsible Observer: WBC WHITE BL OOD COUNT 100.0100 (E) Basophils # Bld Auto 0.1 Unit (0.0-0.2) N (Normal) Note: Responsible Observer: BASO # BASO# 100.1350 (B) Basophils/leuk NFr Bld Auto 0.6 percent (0.4-1.3) N (Normal) Note: Responsible Observer: BASO % BASO % 100.1325 (B) Eosinophil # Bld Auto 0.3 Unit (0.0-0.5) N (Normal) Note: Responsible Observer: EOS # EOS# 100.1300 (D) Eosinophil/leuk NFr Bld Auto 2.6 percent (0-7) N (Normal) Note: Responsible Observer: EOS % EOS % 100.1275 (B) Lymphocytes # Bld Auto 4.2 Unit (0.6-4.6) N (Normal) Note: Responsible Observer: LYMPH # LYMP H# 100.1200 (B) Lymphocytes/leuk NFr Bld Auto 41.2 percent (14-46) N (Normal) Note: Responsible Observer: LYMPH % LYMP H % 100.1175 (B) Monocytes # Bld Auto 0.7 Unit (0.2-1.2) N (Normal) Note: Responsible Observer: MONO # MONO# 100.1250 (C) Neutrophils # Bld Auto 5.0 Unit (1.7-7.6) N (Normal) Note: Responsible Observer: NEUT# NEUT# 100.1150 (B) Neutrophils/leuk NFr Bld Auto 48.6 percent (41-77) N (Normal) Note: Responsible Observer: NEUT% NEUT% 100.1125 (B) Platelet # Bld Auto 346 ThousandsPerMicroLiter_[Number_Concentration_Units] (130-472 ) N (Normal) Note: Responsible Observer: PLATELET COU NT PLATELET COUNT 100.1000 (D) MCH RBC Qn Auto 30.4 PicoGram_[SI_Mass_Units] (27-31) N (Normal) Note: Responsible Observer: MCH MCH 100 .0700 (B) RBC # Bld Auto 4.54 MillionsPerMicroLiter_[Number_Concentration_Units] (4.20-5.4 0) N (Normal) Note: Responsible Observer: RBC Red Bloo d Count 100.0300 (B) NUCLEATED RED BLOOD CELL# 0 Unit None Note: Responsible Observer: NRBC# NUCLEA RICHARD RBC 100.1362 (A) NUCLEATED RED BLOOD CELL 0 percent None Note: Responsible Observer: NRBC% NRBC% 100.1360 (B) Reviewed by Rosalie Oliveira MD on 10/01; All test results are final unless otherwise noted. [facility] Ordered by Rosalie Oliveira MD on 09/29/2020 Collected: 09/29/2020 Reported: 09/29/2020 09:07 ALT SerPl w P-5'-P-cCnc 16 enzyme_unit_per_liter (10-49) N (Normal) Note: Responsible Observer: SGPT/ALT SGP T/ALT 400.1750 (G) Calcium SerPl-mCnc 9.2 MilliGramsPerDeciLiter_[Mass_Concentration_Units] (8.5-10.1) N (Normal) Note: Responsible Observer: Calcium Calc ium 400.2500 (G) Bilirub SerPl-mCnc 0.4 MilliGramsPerDeciLiter_[Mass_Concentration_Units] (0.3-1.2) N (Normal) Note: Responsible Observer: T TRENT Total Bilirubin 400.2600 (G) CO2 SerPl-sCnc 32 MilliMolesPerLiter_[Substance_Concentration_Units] (20-31) H (High) Note: Responsible Observer: CO2 Carbon D ioxide 400.1400 (G) Chloride SerPl-sCnc 107 MilliMolesPerLiter_[Substance_Concentration_Units] (99-109) N (Normal) Note: Responsible Observer: Chloride Chl oride 400.1250 (G) Glucose SerPl-mCnc 99 MilliGramsPerDeciLiter_[Mass_Concentration_Units] (74-106) N (Normal) Note: Responsible Observer: Glucose Gluc ose 400.1500 (G) Potassium SerPl-sCnc 4.2 MilliMolesPerLiter_[Substance_Concentration_Units] (3.5-5.5) N (Normal) Note: Responsible Observer: K Potassium 400.1210 (G) Prot SerPl-mCnc 7.2 GramsPerDeciLiter_[Mass_Concentration_Units] (5.7-8.2) N (Normal) Note: Responsible Observer: TP Total Pro tein 400.2800 (G) Sodium SerPl-sCnc 142 MilliMolesPerLiter_[Substance_Concentration_Units] (132-146) N (Normal) Note: Responsible Observer: Sodium Sodiu m 400.1100 (G) AST SerPl w P-5'-P-cCnc 13 enzyme_unit_per_liter (0-33) N (Normal) Note: Responsible Observer: SGOT / AST S GOT / AST 400.1900 (G) BUN SerPl-mCnc 12 MilliGramsPerDeciLiter_[Mass_Concentration_Units] (9-23) N (Normal) Note: Responsible Observer: BUN Blood Ur ea Nitrogen 400.1000 (G) Anion Gap SerPl-sCnc 7 MilliMolesPerLiter_[Substance_Concentration_Units] (8-16) L (Low) Note: Responsible Observer: ANION GAP AN ION GAP 400.1402 (E) Albumin SerPl BCP-mCnc 3.8 GramsPerDeciLiter_[Mass_Concentration_Units] (3.2-4.8) N (Normal) Note: Responsible Observer: Albumin [place] min 400.2700 (G) ALP SerPl-cCnc 83 enzyme_unit_per_liter (45-129) N (Normal) Note: Responsible Observer: ALP Alkaline Phosphatase 400.2000 (G) GFR/BSA.pred SerPlBld-ArVRat Greater Than 60 (ABOVE 60) None Note: Responsible Observer: GFR Glomerul ar Filt Rate Calc 400.1605 (D) Creatinine 0.9 MilliGramsPerDeciLiter_[Mass_Concentration_Units] (0.5-1.1) N (Normal) Note: Responsible Observer: Creatinine C reatinine 400.1600 (G) Reviewed by Rosalie Oliveira MD on 10/01; All test results are final unless otherwise noted. Reported Physicians [facility] Ordered by Rosalie Oliveira MD on 09/29/2020 Collected: 09/29/2020 Reported: 09/29/2020 09:08 Reported Physicians See Note None Note: Reported Physicians:Ordering: Jimmie CANNON: Breanne MERRITT To: Rosalie Oliveira Reviewed by Rosalie Oliveira MD on 10/01; All test results are final unless otherwise noted. History of Present Illness History of Present Illness not supported for this document typeNo History of Present Illness Recorded Social History Description Last Updated No travel 07/18/2020 Psychosocial support is sufficient 09/22/2019 Wishing to stop smoking 09/22/2019 , lives with ex- 05/25/2019 No consumption of alcohol 08/24/2018 Not using drugs 08/24/2018 Tobacco use 10 cigarettes/day x 35 years 08/24/2018 Work history Disability for anxiety 08/24/2018 Smoking Status Unknown Procedures and Surgical History Includes: Procedures from 01/17/2020 through 01/16/2021 Procedures Code Diagnosis Performing Provider Service Location Service Date [facility]-Annual depression screening- 15 min. (Distinct [place] rate service-same day) G0444 Encntr for general adult medical exam w/ o abnormal findings, Encounter for screening for other disorder [facility], [facility] 10/01/2020 - subseq't annual wellness exam(1 yr after Initial) G0439 Encntr for general adult medical exam w/o abnormal findings Diane Yousif [facility], [facility] 10/01/2020 Surgical History Last Updated Surgical / procedural history Total Hys terectomy ~Bladder Sling ~Pelvic Wall Reconstruction ~Lipoma removal on chest ~Cholecystectomy ~ 08/24/2018 Medical History Includes: Medical History in patient's chart Description Last Updated History of colonoscopy 10/15/2018 09/22/2019 Past medical history ~ x 7 ~ Menarche: age 11 ~Menopause: with hysterectomy in 201308/24/2018 Family History Includes: Family History in patient's chart Description Last Updated Children daughter: ureter obstruction ~daughter: HTN ~son: Chron's disease ~4 other children: healthy 08/24/2018 Father health status was reviewed from brain cancer at age 56 08/24/2018 Mother health status was reviewed at age 58, COPD or stomach cancer? 08/24/2018 Siblings 3 brothers: HTN 08/24/2018 Review of Systems Review of Systems not supported for this document typeNo Review of Systems Recorded Mental Status Mental Status not supported for this document typeNo Mental Status Recorded Functional Status Functional Status not supported for this document typeNo Functional Status Recorded Physical Exam Physical Exam not supported for this document typeNo Physical Exam Recorded Immunizations Includes: Immunizations in patient's chart Vaccine Dose # Date Site Reaction(s) Status Source Influenza, seasonal, injectable 1 05/29/2020 Compl ete (Reported) Patient Shingrix 1 05/29/2020 Complete (Reported) Patient Shingrix 2 09/21/2020 Complete (Reported) Patient Allergies Includes: Active, inactive, and resolved AllergiesNo Known Allergies Encounters Includes: Encounters from 01/17/2020 through 01/16/2021 Encounter Provider Location Date Check-In Time Check-Out Time D iagnosis followup Lucien Delarosa PA-C [facility], [facility] 1 8:56AM 10:14AM Gastroparesis, Essential Hypertension, T endonitis [Patient Encounter] Diane Yousif [facility] 10/29/202010/01 11:49AM 10/01/2020 11:59PM [Patient Encounter] Diane Yousif [facility] 10/21/202010/01 2:55PM 10/01/2020 11:59PM [Patient Encounter] Diane Yousif [facility] 10/03/202010/01 10:53AM 10/01/2020 11:59PM Annual Wellness SUBSEQUENT visi t(> 1yr since prev. Andie Yousif [facility], [facility] 10/01/2020 8:57AM 10:06AM Nicotine Dependence, Routine History and Physical Adult (18 - 64 Yrs) ANNUAL PE-followup exam Diane Yousif [facility] [place], [facility] 10/01/2020 8:58AM 10:06AM Routine History and Physical Adult (18 - 64 Yrs) followup Diane Yousif [facility], [facility] 10/01/2020 8:58AM 10:06AM Essential Hypertension, Hype rlipidemia, Osteoarthritis Localized Wrist Left, Nicotine-related Disorders, Ganglion Left Wrist telephone conversation Diane Yousif [facility], [facility] 07/18/2020 1:28PM 2:37PM Sinusitis Acute Telehealth communication Rosalie Oliveira MD [facility], [facility] 06/08/2020 2:22PM 2:48PM Post-artificial Nicolasa pause State Symptomatic, Abnormal Weight Loss followup Rosalie Oliveira MD [facility], [facility] 0 04/06/2020 10:19AM 10:42AM Essential Hypertension, Mechanical Maintenance myah Obstructive Pulmonary Disease, Nicotine- related Disorders, Post-artificial Menopause State Symptomatic, Abnormal Weight Loss, Osteoarthritis Localized Primary Carpometacarpal Joint [Patient Encounter] Rosalie Oliveira MD 03/06/2020 020 9:42AM 01/04/2020 11:59PM Insurance Includes: Active Insurance Policies Plan Name Member ID Group # Subscriber Relationship Effective Da shailesh 1 - [facility] Plans [id number] Sakshichristopher Graham s Self 09/21/2020 - Unknown 2 - Medicaid [id number] Sakshi Rodriguez Self Advance Directives Includes: Current Advance DirectivesNo Advance Directives Recorded Health Concerns Includes: Active Health ConcernsNo Active Health Concerns Recorded Goals Includes: Active GoalsNo Active Goals Recorded Interventions Includes: Interventions for active GoalsNo Interventions Recorded Evaluations & Outcomes Includes: Evaluations & Outcomes for active GoalsNo Outcomes Recorded
--- OUTSIDE RECORDS SUMMARY | 2021-07-16 13:31 | CCD ---
Author Author [facility] Organization [facility] Address Unknown Phone Unavailable Care Team Providers Care Shipping Weigher Name Role Phone MALLY MERRITT MD Unavailable Unavailable MALLY MERRITT MD Unavailable Unavailable Michael Marquis Unavailable Unavailable GANESH, B STAN CONSTRUCTION FLAGGER Unavailable Unavailable GANESH, B STAN CONSTRUCTION FLAGGER Unavailable Unavailable GANESH, B STAN CONSTRUCTION FLAGGER Unavailable Unavailable GANESH, B STAN CONSTRUCTION FLAGGER Unavailable Unavailable GANESH, B STAN CONSTRUCTION FLAGGER Unavailable Unavailable GANESH, B STAN CONSTRUCTION FLAGGER Unavailable Unavailable GANESH, B STAN CONSTRUCTION FLAGGER Unavailable Unavailable GANESH, B STAN CONSTRUCTION FLAGGER Unavailable Unavailable GANESH, B STAN CONSTRUCTION FLAGGER Unavailable Unavailable GANESH, B STAN CONSTRUCTION FLAGGER Unavailable Unavailable GANESH, B STAN CONSTRUCTION FLAGGER Unavailable Unavailable GANESH, B STAN CONSTRUCTION FLAGGER Unavailable Unavailable GANESH, B STAN CONSTRUCTION FLAGGER Unavailable Unavailable GANESH, B STAN CONSTRUCTION FLAGGER Unavailable Unavailable GANESH, B STAN CONSTRUCTION FLAGGER Unavailable Unavailable GANESH, B STAN CONSTRUCTION FLAGGER Unavailable Unavailable GANESH, B STAN CONSTRUCTION FLAGGER Unavailable Unavailable GANESH, B STAN CONSTRUCTION FLAGGER Unavailable Unavailable GANESH, B STAN CONSTRUCTION FLAGGER Unavailable Unavailable GANESH, B STAN CONSTRUCTION FLAGGER Unavailable Unavailable GANESH, B STAN CONSTRUCTION FLAGGER Unavailable Unavailable GANESH, B STAN CONSTRUCTION FLAGGER Unavailable Unavailable GANESH, B STAN CONSTRUCTION FLAGGER Unavailable Unavailable GANESH, B STAN CONSTRUCTION FLAGGER Unavailable Unavailable GANESH, B STAN CONSTRUCTION FLAGGER Unavailable Unavailable GANESH, B STAN CONSTRUCTION FLAGGER Unavailable Unavailable GANESH, B STAN CONSTRUCTION FLAGGER Unavailable Unavailable GANESH, B STAN CONSTRUCTION FLAGGER Unavailable Unavailable GANESH, B STAN CONSTRUCTION FLAGGER Unavailable Unavailable GANESH, B STAN CONSTRUCTION FLAGGER Unavailable Unavailable GANESH, B STAN CONSTRUCTION FLAGGER Unavailable Unavailable GANESH, B STAN CONSTRUCTION FLAGGER Unavailable Unavailable GANESH, B STAN CONSTRUCTION FLAGGER Unavailable Unavailable GANESH, B STAN CONSTRUCTION FLAGGER Unavailable Unavailable GANESH, B STAN CONSTRUCTION FLAGGER Unavailable Unavailable GANESH, B STAN CONSTRUCTION FLAGGER Unavailable Unavailable GANESH, B STAN CONSTRUCTION FLAGGER Unavailable Unavailable GANESH, B STAN CONSTRUCTION FLAGGER Unavailable Unavailable GANESH, B STAN CONSTRUCTION FLAGGER Unavailable Unavailable GANESH, B STAN CONSTRUCTION FLAGGER Unavailable Unavailable GANESH, B STAN CONSTRUCTION FLAGGER Unavailable Unavailable GANESH, B STAN CONSTRUCTION FLAGGER Unavailable Unavailable GANESH, B STAN CONSTRUCTION FLAGGER Unavailable Unavailable GANESH, B STAN CONSTRUCTION FLAGGER Unavailable Unavailable GANESH, B STAN CONSTRUCTION FLAGGER Unavailable Unavailable GANESH, B STAN CONSTRUCTION FLAGGER Unavailable Unavailable GANESH, B STAN CONSTRUCTION FLAGGER Unavailable Unavailable GANESH, B STAN CONSTRUCTION FLAGGER Unavailable Unavailable GANESH, B STAN CONSTRUCTION FLAGGER Unavailable Unavailable GANESH, B STAN CONSTRUCTION FLAGGER Unavailable Unavailable GANESH, B STAN CONSTRUCTION FLAGGER Unavailable Unavailable GANESH, B STAN CONSTRUCTION FLAGGER Unavailable Unavailable GANESH, B STAN CONSTRUCTION FLAGGER Unavailable Unavailable GANESH, B STAN CONSTRUCTION FLAGGER Unavailable Unavailable GANESH, B STAN CONSTRUCTION FLAGGER Unavailable Unavailable GANESH, B STAN CONSTRUCTION FLAGGER Unavailable Unavailable GANESH, B STAN CONSTRUCTION FLAGGER Unavailable Unavailable GANESH, B STAN CONSTRUCTION FLAGGER Unavailable Unavailable GANESH, B STAN CONSTRUCTION FLAGGER Unavailable Unavailable GANESH, B STAN CONSTRUCTION FLAGGER Unavailable Unavailable GANESH, B STAN CONSTRUCTION FLAGGER Unavailable Unavailable GANESH, B STAN CONSTRUCTION FLAGGER Unavailable Unavailable MUHA, M FRANCISCO SECURITY RISK ANALYST Unavailable Unavailable MUHA, M FRANCISCO SECURITY RISK ANALYST Unavailable Unavailable MUHA, M FRANCISCO SECURITY RISK ANALYST Unavailable Unavailable MUHA, M FRANCISCO SECURITY RISK ANALYST Unavailable Unavailable MUHA, M FRANCISCO SECURITY RISK ANALYST Unavailable Unavailable MUHA, M FRANCISCO SECURITY RISK ANALYST Unavailable Unavailable MUHA, M FRANCISCO SECURITY RISK ANALYST Unavailable Unavailable MUHA, M FRANCISCO SECURITY RISK ANALYST Unavailable Unavailable MUHA, M FRANCISCO SECURITY RISK ANALYST Unavailable Unavailable MUHA, M FRANCISCO SECURITY RISK ANALYST Unavailable Unavailable MUHA, M FRANCISCO SECURITY RISK ANALYST Unavailable Unavailable MUHA, M FRANCISCO SECURITY RISK ANALYST Unavailable Unavailable MUHA, M FRANCISCO SECURITY RISK ANALYST Unavailable Unavailable MUHA, M FRANCISCO SECURITY RISK ANALYST Unavailable Unavailable MUHA, M FRANCISCO SECURITY RISK ANALYST Unavailable Unavailable MUHA, M FRANCISCO SECURITY RISK ANALYST Unavailable Unavailable MUHA, M FRANCISCO SECURITY RISK ANALYST Unavailable Unavailable MUHA, M FRANCISCO SECURITY RISK ANALYST Unavailable Unavailable MUHA, M FRANCISCO SECURITY RISK ANALYST Unavailable Unavailable MUHA, M FRANCISCO SECURITY RISK ANALYST Unavailable Unavailable MUHA, M FRANCISCO SECURITY RISK ANALYST Unavailable Unavailable MUHA, M FRANCISCO SECURITY RISK ANALYST Unavailable Unavailable MUHA, M FRANCISCO SECURITY RISK ANALYST Unavailable Unavailable MUHA, M FRANCISCO SECURITY RISK ANALYST Unavailable Unavailable MUHA, M FRANCISCO SECURITY RISK ANALYST Unavailable Unavailable MUHA, M FRANCISCO SECURITY RISK ANALYST Unavailable Unavailable MUHA, M FRANCISCO SECURITY RISK ANALYST Unavailable Unavailable MUHA, M FRANCISCO SECURITY RISK ANALYST Unavailable Unavailable MUHA, M FRANCISCO SECURITY RISK ANALYST Unavailable Unavailable MUHA, M FRANCISCO SECURITY RISK ANALYST Unavailable Unavailable MUHA, M FRANCISCO SECURITY RISK ANALYST Unavailable Unavailable MUHA, M FRANCISCO SECURITY RISK ANALYST Unavailable Unavailable MUHA, M FRANCISCO SECURITY RISK ANALYST Unavailable Unavailable MUHA, M FRANCISCO SECURITY RISK ANALYST Unavailable Unavailable MUHA, M FRANCISCO SECURITY RISK ANALYST Unavailable Unavailable MUHA, M FRANCISCO SECURITY RISK ANALYST Unavailable Unavailable MUHA, M FRANCISCO SECURITY RISK ANALYST Unavailable Unavailable MUHA, M FRANCISCO SECURITY RISK ANALYST Unavailable Unavailable MUHA, M FRANCISCO SECURITY RISK ANALYST Unavailable Unavailable MUHA, M FRANCISCO SECURITY RISK ANALYST Unavailable Unavailable MUHA, M FRANCISCO SECURITY RISK ANALYST Unavailable Unavailable MUHA, M FRANCISCO SECURITY RISK ANALYST Unavailable Unavailable MUHA, M FRANCISCO SECURITY RISK ANALYST Unavailable Unavailable MUHA, M FRANCISCO SECURITY RISK ANALYST Unavailable Unavailable MUHA, M FRANCISCO SECURITY RISK ANALYST Unavailable Unavailable MUHA, M FRANCISCO SECURITY RISK ANALYST Unavailable Unavailable MUHA, M FRANCISCO SECURITY RISK ANALYST Unavailable Unavailable MUHA, M FRANCISCO SECURITY RISK ANALYST Unavailable Unavailable MUHA, M FRANCISCO SECURITY RISK ANALYST Unavailable Unavailable MUHA, M FRANCISCO SECURITY RISK ANALYST Unavailable Unavailable MUHA, M FRANCISCO SECURITY RISK ANALYST Unavailable Unavailable MUHA, M FRANCISCO SECURITY RISK ANALYST Unavailable Unavailable MUHA, M FRANCISCO SECURITY RISK ANALYST Unavailable Unavailable MUHA, M FRANCISCO SECURITY RISK ANALYST Unavailable Unavailable Roxanne, E Rosalie MD Unavailable Unavailable Roxanne, E Rosalie MD Unavailable Unavailable Roxanne, E Rosalie MD Unavailable Unavailable Roxanne, E Rosalie MD Unavailable Unavailable Roxanne, E Roslaie MD Unavailable Unavailable Roxanne, E Rosalie MD Unavailable Unavailable Roxanne, E Rosalie MD Unavailable Unavailable Roxanne, E Rosalie MD Unavailable Unavailable Roxanne, E Rosalie MD Unavailable Unavailable Roxanne, E Rosalie MD Unavailable Unavailable Roxanne, E Rosalie MD Unavailable Unavailable Roxanne, E Rosalie MD Unavailable Unavailable Roxanne, E Rosalie MD Unavailable Unavailable Roxanne, E Rosalie MD Unavailable Unavailable Roxanne, E Rosalie MD Unavailable Unavailable Roxanne, E Rosalie MD Unavailable Unavailable Roxanne, E Rosalie MD Unavailable Unavailable Roxanne, E Rosalie MD Unavailable Unavailable Roxanne, E Rosalie MD Unavailable Unavailable Roxanne, E Rosalie MD Unavailable Unavailable Roxanne, E Rosalie MD Unavailable Unavailable Roxanne, E Rosalie MD Unavailable Unavailable Roxanne, E Rosalie MD Unavailable Unavailable Roxanne, E Rosalie MD Unavailable Unavailable Roxanne, E Rosalie MD Unavailable Unavailable Roxanne, E Rosalie MD Unavailable Unavailable Roxanne, E Rosalie MD Unavailable Unavailable Roxanne, E Rosalie MD Unavailable Unavailable Roxanne, E Rosalie MD Unavailable Unavailable Roxanne, E Rosalie MD Unavailable Unavailable Roxanne, E Rosalie MD Unavailable Unavailable Roxanne, E Rosalie MD Unavailable Unavailable Roxanne, E Rosalie MD Unavailable Unavailable Roxanne, E Rosalie MD Unavailable Unavailable Roxanne, E Rosalie MD Unavailable Unavailable Roxanne, E Rosalie MD Unavailable Unavailable Roxanne, E Rosalie MD Unavailable Unavailable Roxanne, E Rosalie MD Unavailable Unavailable Roxanne, E Rosalie MD Unavailable Unavailable Roxanne, E Rosalie MD Unavailable Unavailable Roxanne, E Rosalie MD Unavailable Unavailable Roxanne, E Rosalie MD Unavailable Unavailable Roxanne, E Rosalie MD Unavailable Unavailable Roxanne, E Rosalie MD Unavailable Unavailable Roxanne, E Rosalie MD Unavailable Unavailable Roxanne E Rosalie MACEDO Unavailable Unavailable Roxanne, E Rosalie MACEDO Unavailable Unavailable Roxanne, E Rosalie MACEDO Unavailable Unavailable Roxanne, E Rosalie MACEDO Unavailable Unavailable Jeff Oliveira MD Unavailable Unavailable Jeff Oliveira MD Unavailable Unavailable Roxanne E Rosalie MACEDO Unavailable Unavailable Roxanne E Rosalie MACEDO Unavailable Unavailable Jeff Oliveira MD Unavailable Unavailable SHEEBA, L KAIN PA Unavailable Unavailable SHEEBA, L KAIN PA Unavailable Unavailable SHEEBA, L KAIN PA Unavailable Unavailable SHEEBA, L KAIN PA Unavailable Unavailable SHEEBA, L KAIN PA Unavailable Unavailable SHEEBA, L KAIN PA Unavailable Unavailable SHEEBA, L KAIN PA Unavailable Unavailable SHEEBA, L KAIN PA Unavailable Unavailable SHEEBA, L KAIN PA Unavailable Unavailable SHEEBA, L KAIN PA Unavailable Unavailable SHEEBA, L KAIN PA Unavailable Unavailable SHEEBA, L KAIN PA Unavailable Unavailable SHEEBA, L KAIN PA Unavailable Unavailable SHEEBA, L KAIN PA Unavailable Unavailable SHEEBA, L KAIN PA Unavailable Unavailable SHEEBA, L KAIN PA Unavailable Unavailable Soto Griggs MD Unavailable Unavailable Soto Griggs MD Unavailable Unavailable Soto Griggs MD Unavailable Unavailable Soto Griggs MD Unavailable Unavailable Soto Griggs MD Unavailable Unavailable Soto Griggs MD Unavailable Unavailable Soto Griggs MD Unavailable Unavailable Soto Griggs MD Unavailable Unavailable Soto Griggs MD Unavailable Unavailable Soto Griggs MD Unavailable Unavailable Soto Griggs MD Unavailable Unavailable Soto Griggs MD Unavailable Unavailable Soto Griggs MD Unavailable Unavailable Soto Griggs MD Unavailable Unavailable Soto Griggs MD Unavailable Unavailable Soto Griggs MD Unavailable Unavailable Soto Griggs MD Unavailable Unavailable Soto Griggs MD Unavailable Unavailable Soto Griggs MD Unavailable Unavailable Soto Griggs MD Unavailable Unavailable Soto Griggs MD Unavailable Unavailable Soto Griggs MD Unavailable Unavailable Soto Griggs MD Unavailable Unavailable Soto Griggs MD Unavailable Unavailable Soto Griggs MD Unavailable Unavailable Soto Griggs MD Unavailable Unavailable Soto Griggs MD Unavailable Unavailable Soto Griggs MD Unavailable Unavailable Soto Griggs MD Unavailable Unavailable Soto Griggs MD Unavailable Unavailable Soto Griggs MD Unavailable Unavailable Soto Griggs MD Unavailable Unavailable Fish, B Henny MACEDO Unavailable Unavailable Fish, B Henny MACEDO Unavailable Unavailable Fish, B Henny MACEDO Unavailable Unavailable Fish, B Henny MACEDO Unavailable Unavailable Fish, B Henny MACEDO Unavailable Unavailable Fish, B Henny MACEDO Unavailable Unavailable Fish, B Henny MACEDO Unavailable Unavailable Fish, B Henny MACEDO Unavailable Unavailable Fish, B Henny MACEDO Unavailable Unavailable Fish, B Henny MACEDO Unavailable Unavailable Fish, B Henny MACEDO Unavailable Unavailable Fish, B Henny MACEDO Unavailable Unavailable Fish, B Henny MACEDO Unavailable Unavailable Fish, B Henny MACEDO Unavailable Unavailable Fish, B Henny MACEDO Unavailable Unavailable Fish, B Henny MACEDO Unavailable Unavailable Fish, B Henny MACEDO Unavailable Unavailable Fish, B Henny MACEDO Unavailable Unavailable Fish, B Henny MACEDO Unavailable Unavailable Fish, B Henny MACEDO Unavailable Unavailable Fish, B Henny MACEDO Unavailable Unavailable Fish, B Henny MACEDO Unavailable Unavailable Fish, B Henny MACEDO Unavailable Unavailable Fish, B Henny MACEDO Unavailable Unavailable Fish, B Henny MACEDO Unavailable Unavailable Fish, B Henny MACEDO Unavailable Unavailable Fish, B Henny MACEDO Unavailable Unavailable Fish, B Henny MACEDO Unavailable Unavailable Fish, B Henny MACEDO Unavailable Unavailable Fish, B Henny MACEDO Unavailable Unavailable Fish, B Henny MACEDO Unavailable Unavailable Fish, B Henny MACEDO Unavailable Unavailable Fish, B Henny MACEDO Unavailable Unavailable hCris M Christopher PA-C Unavailable Unavailable Chris M Christopher PA-C Unavailable Unavailable Chris M Christopher PA-C Unavailable Unavailable Chris M Christopher PA-C Unavailable Unavailable Chris M Christopher PA-C Unavailable Unavailable Chris M Christopher PA-C Unavailable Unavailable Chris M Christopher PA-C Unavailable Unavailable Chris M Christopher PA-C Unavailable Unavailable Chris M Christopher PA-C Unavailable Unavailable Chris M Christopher PA-C Unavailable Unavailable Chris M Christopher PA-C Unavailable Unavailable Chris M Christopher PA-C Unavailable Unavailable Perez, M Christopher PA-C Unavailable Unavailable Chris M Christopher PA-C Unavailable Unavailable Chris M Christopher PA-C Unavailable Unavailable Chris M Christopher PA-C Unavailable Unavailable Chris M Christopher PA-C Unavailable Unavailable Chris M Christopher PA-C Unavailable Unavailable Perez, M Christopher PA-C Unavailable Unavailable Perez M Christopher PA-C Unavailable Unavailable Perez M Christopher PA-C Unavailable Unavailable Perez M Christopher PA-C Unavailable Unavailable Chris, Nica Irwin PA-C Unavailable Unavailable Chris, Nica Juan Davider PA-C Unavailable Unavailable Perez, Nica Juan Davider PA-C Unavailable Unavailable Perez, M Christopher PA-C Unavailable Unavailable Isaura, D Lucien PA Unavailable Unavailable Isaura, D Lucien PA Unavailable Unavailable Isaura, D Lucien PA Unavailable Unavailable Isaura, D Lucien PA Unavailable Unavailable Isaura, D Lucien PA Unavailable Unavailable Isaura, D Lucien PA Unavailable Unavailable Isaura, D Lucien PA Unavailable Unavailable Isaura, D Lucien PA Unavailable Unavailable Isaura, D Lucien PA Unavailable Unavailable Isaura, D Lucien PA Unavailable Unavailable Isaura, D Lucien PA Unavailable Unavailable Isaura, D Lucien PA Unavailable Unavailable Isaura, D Lucien PA Unavailable Unavailable Isaura, D Lucien PA Unavailable Unavailable Isaura, D Lucien PA Unavailable Unavailable Isaura, D Lucien PA Unavailable Unavailable Isaura, D Lucien PA Unavailable Unavailable Isaura, D Lucien PA Unavailable Unavailable Isaura, D Lucien PA Unavailable Unavailable Isaura, D Lucien PA Unavailable Unavailable Isaura, D Lucien PA Unavailable Unavailable Isaura, D Lucien PA Unavailable Unavailable Isaura, D Lucien PA Unavailable Unavailable Isaura, D Lucien PA Unavailable Unavailable Isaura, D Lucien PA Unavailable Unavailable Re-disclosure Warning The records that you are about to access may contain information from federally-assisted alcohol or drug abuse programs. If such information is present, then the following federally mandated warning applies: This information has been disclosed to you from records protected by federal confidentiality rules (42 CFR part 2). The federal rules prohibit you from making any further disclosure of this information unless further disclosure is expressly permitted by the written consent of the person to whom it pertains or as otherwise permitted by 42 CFR part 2. A general authorization for the release of medical or other information is NOT sufficient for this purpose. The Federal rules restrict any use of the information to criminally investigate or prosecute any alcohol or drug abuse patient.The records that you are about to access may contain highly sensitive health information, the redisclosure of which is protected by Article 27-F of the [facility] Public Health law. If you continue you may have access to information: Regarding HIV / AIDS; Provided by facilities licensed or operated by the [facility] Office of Mental Health; or Provided by the [facility] Office for People With Developmental Disabilities. If such information is present, then the following [facility] mandated warning applies: This information has been disclosed to you from confidential records which are protected by state law. State law prohibits you from making any further disclosure of this information without the specific written consent of the person to whom it pertains, or as otherwise permitted by law. Any unauthorized further disclosure in violation of state law may result in a fine or retirement sentence or both. A general authorization for the release of medical or other information is NOT sufficient authorization for further disc losure. Allergies and Adverse Reactions Type Description Substance Reaction Status Data Source(s ) Allergy to substance No Known Allergies No known allergies (situation ) [facility]) Allergy to substance No Known Allergies No known allergies (situation ) [facility]) Family History Family Member Name Family Member Gender Family Member Status Date o f Status Description Data Source(s) Unknown Unknown Problem [facility] ([facility] mother Encounters Encounter Providers Location Date Indications Data Source(s ) Attender: Michael Marquis 05/08/2021 08:21:08 PM EDT [facility] Attender: Michael Marquis 04/22/2021 08:21:08 PM EDT [facility] Outpatient Attender: Irwin Perez PA-C 04/20/2021 04:09:29 PM EDT - 04/20/2021 04:44:17 PM EDT [facility] ([facility]) Attender: Michael Marquis 04/19/2021 08:21:07 PM EDT [facility] Attender: Michael Marquis 04/19/2021 08:21:07 PM EDT [facility] Attender: Michael Marquis 04/15/2021 08:21:07 PM EDT [facility] Outpatient<td ID="encounterTypeDescripti onID0">followup</td><td>Lucien Rascon</td><td>[facility]</td><td>01/12/2021</td><td>8:56AM</td><td>10:14AM</td><td><content ID="encounterDiagnosisID0-0">Gastroparesis</content>, <content ID="encounterDiagnosisID0-1">Essential Hypertension</content>, <content ID="encounterDiagnosisID0-2">Tendonitis</content></td> Attender: Lucien CAMPBELL [facility] 01/12/2021 08:56:00 AM EDT - 01/12/2021 10:14:29 AM EDT TendonitisGastroparesisEssential Hypertension [facility]) Tendonitis Gastroparesis Essential Hypertension <td ID="encounterTypeDescriptionID2">[Pa tient Encounter]</td><td>Francisco Hu SECURITY RISK ANALYST-BC</td><td></td><td>10/21/2020</td><td>10/01/2020 2:55PM</td><td>10/01/2020 11:59PM</td><td></td>Outpatient Attender: FRANCISCO GAMINGADEN GAMEZ 0 10/01/2020 02:55:00 PM EST - 10/01/2020 11:59:00 PM [facility]) Outpatient<td ID="encounterTypeDescripti onID1">[Patient Encounter]</td><td>Francisco Hu SECURITY RISK ANALYST- BC</td><td></td><td>10/29/2020</td><td>10/01/2020 11:49AM</td><td>10/01/2020 11:59PM</td><td></td> Attender: FRANCISCO JANIE GAMEZ 10/01/2020 11:49:00 AM EST - 10/01/2020 11:59:00 PM [facility]) Outpatient<td ID="encounterTypeDescripti onID3">[Patient Encounter]</td><td>Francisco Gamingaden SECURITY RISK ANALYST- BC</td><td></td><td>10/03/2020</td><td>10/01/2020 10:53AM</td><td>10/01/2020 11:59PM</td><td></td> Attender: FRANCISCO GAMEZ 10/01/2020 10:53:00 AM EST - 10/01/2020 11:59:00 PM EST [facility] ([facility]) <td ID="encounterTypeDescriptionID6">[facility]</td><td>Francisco Yousif Janie SOTO </td><td>[facility]</td><td>10/01/2020</td><td>8:58AM</td><td>10:06AM</td><td><content ID="encounterDiagnosisID6-0">Essential Hypertension</content>, <content ID="encounterDiagnosisID6-1">Hyperlipidemia</content>, <content ID="encounterDiagnosisID6-2">Osteoarthritis Localized Wrist Left</content>, <content ID="encounterDiagnosisID6-3">Nicotine-related Disorders</content>, <content ID="encounterDiagnosisID6-4">Ganglion Left Wrist</content></td>Outpa tient Attender: FRANCISCO GAMEZ [facility] 10/01/2020 08:58:00 AM EST - 10/01/2020 10:06:00 AM EST Ganglion Left WristOsteoarthritis Localized Wrist LeftNicotine-related DisordersHyperlipidemiaEssential Hypertension [facility] ([facility]) Ganglion Left Wrist Osteoarthritis Localized Wrist Left Nicotine-related Disorders Hyperlipidemia Essential Hypertension Outpatient<td ID="encounterTypeDescripti onID5">ANNUAL PE-followup exam/30</td><td>Francisco Yousif Janie GAMEZ-EKATERINA</td><td>[facility]</td><td>10/01/2020</td><td>8:58AM</td><td>10:06AM</td><td><content ID="encounterDiagnosisID5-0">Routine History and Physical Adult (18 - 64 Yrs)</content></td> Attender: FRANCISCO GAMEZ [facility] 10/01/2020 08:58:00 AM EST - 10/01/2020 10:06:00 AM EST Routine History and Physical Adult (18 - 64 Yrs) [facility]) Routine History and Physical Adult (18 - 64 Yrs) Outpatient<td ID="encounterTypeDescripti onID4"> Annual Wellness SUBSEQUENT visi t(> 1yr since prev.</td><td>Francisco Yousif Janie THOMPSON</td><td>[facility]</td><td>10/01/2020</td><td> 8:57AM</td><td>10:06AM</td><td><content ID="encounterDiagnosisID4-0">Nicotine Dependence</content>, <content ID="encounterDiagnosisID4-1">Routine History and Physical Adult (18 - 64 Yrs)</content></td> Attender: FRANCISCO GAMEZ [facility] 10/01/2020 08:57:00 AM EST - 10/01/2020 10:06:00 AM ES T Routine History and Physical Adult (18 - 64 Yrs)Nicotine Dependence [facility] ([facility]) Routine History and Physical Adult (18 - 64 Yrs) Nicotine Dependence Outpatient Attender: MALLY MERRITT MD 09/29/2020 0 8:00:00 AM EST PT HAS ORDERS [facility] PT HAS ORDERS Outpatient Attender: KAIN CAMPBELL Main Office 08/31/2020 0 9:15:00 AM EST [facility] ([facility] <td ID="encounterTypeDescriptionID7">tel ephone conversation</td><td>Francisco Yousif Janie THOMPSON</td><td>[facility]</td><td>07/18/2020</td><td>1:28PM</td><td>2:37PM</td><td><content ID="encounterDiagnosisID7-0">Sinusitis Acute</content></td>[facility] 01:28:00 P M EDT - 07/18/2020 02:37:17 PM EDT Sinusitis AcuteSinusitis Acute [facility] ([facility]) Sinusitis Acute Sinusitis Acute <td ID="encounterTypeDescriptionID8">Tel eal communication</td><td>Rosalie Oliveira MD</td><td>[facility], [facility]</td><td>06/08/2020</td><td>2:22PM</td><td>2:48PM</td><td><content ID="encounterDiagnosisID8-0">Post-artificial Menopause State Symptomatic</content>, <content ID="[id number]">Abnormal Weight Loss</content></td>Outpatient Attender: Rosalie Oliveira MD [facility], [facility] 06/08/2020 02:22:00 PM EDT - 06/08/2020 02:48:00 PM ED T Abnormal Weight LossAbnormal Weight LossAbnormal Weight LossPost-artificial Menopause State SymptomaticPost-artificial Menopause State SymptomaticPost-artificial Menopause State Symptomatic [facility] ([facility]) Abnormal Weight Loss Abnormal Weight Loss Abnormal Weight Loss Post-artificial Menopause State Symptoma tic Post-artificial Menopause State Symptoma tic Post-artificial Menopause State Symptoma tic Outpatient Attender: STAN ANDERSEN NP Physical Therapy 11:00:00 AM EDT [facility] ([facility]) Outpatient Attender: Henny Griggs MD Physical Therapy 05/22 10:30:00 AM EDT [facility] ([facility]) Immunizations Vaccine Date Status Description Data Source(s) COVID-19 VACCINE Moderna 02/16/2021 12:00:00 AM EDT completed [facility] Vaccine Series Complete: YESThis Data wa s Submitted to [facility] Via Ansible. COVID-19 VACCINE Moderna 01/15/2021 12:00:00 AM EDT completed [place] Vaccine Series Complete: NOThis Data was Submitted to [facility] Via Ansible. Shingrix 09/21/2020 01:47:00 PM EST completed <td ID="Xwtvbizboekbj-Gxklgtfkshi-SK8">Shingrix</td><td ID="ImmunizationDose- 2">2</td><td>09/21/2020</td><td ID="Vzmhkfhdsyvga-ObhphKazh-GR7"></td><td></td> <td ID="Knrasrfgqehmo-Bftqsz-DM5">Complete (Reported)</td><td>Patient</td><td ID="Jnyvlkcklowrp-Rulkq-Kwbj-Comment-ID2"></td> [facility]) Shingrix 05/29/2020 10:09:00 AM EDT completed <td ID="Vofudycjhyavl-Dtwxntcjjqw-CC4">Shingrix</td><td ID="ImmunizationDose- 1">1</td><td>05/29/2020</td><td ID="Wbpjdfkwplkck-VxaaqSxwz-QF0"></td><td></td> <td ID="Rvspobzacymru-Wwhbzd-LO0">Complete (Reported)</td><td>Patient</td><td ID="Iexiassbeolkh-Brxtg-Tfjn-Comment-ID1"></td> [facility]) IIV3. This is one of two codes replacing CVX 15, which is being retired. 05/29/2020 10:09:00 AM EDT completed <td ID="Bdjiqfhntyfil-Behnbcpwxoy-LV2">Influenza, seasonal, injectable</td><td ID="ImmunizationDose-0">1</td><td>05/29/2020</td><td ID="Thbnsloixldod-TcnpuMvaq-OL1"></td><td></td><td ID="Dnahcajywotvp-Dxgery-CN0">Complete (Reported)</td><td>Patient</td><td ID="Bbwaygmgwsrxr-Pdncf-Hadm-Comment-ID0"></td> [facility]) Medications Medication Brand Name Start Date Product Form Dose Route Admi nistrative Instructions Pharmacy Instructions Status Indications Reaction Description Data Source(s) Cyclobenzaprine hydrochloride 10 MG Oral Tablet CYCLOBENZAPR INE HCL 06/30/2021 12:00:00 AM EDT tablet 90 TAKE ONE TABLET BY MOUTH EVERY DAY TAKE ONE TABLET BY MOUTH EVERY DAY SOLD: 07/01/2021 [facility] 62.5 mcg/actuation 06/11/2021 12:00:00 AM EDT blister with d evice 30 INHALE 1 PUFF BY MOUTH ONCE DAILY INHALE 1 PUFF BY MOUTH ONCE DAILY SOLD: 07/12/2021 [facility] 62.5 mcg/actuation 06/11/2021 12:00:00 AM EDT blister with d evice 30 INHALE 1 PUFF BY MOUTH ONCE DAILY INHALE 1 PUFF BY MOUTH ONCE DAILY SOLD: 06/14/2021 [facility] Amoxicillin 875 MG / Clavulanate 125 MG Oral Tablet 87 5-125 mg AMOXICILLIN/POTASSIUM CLAV 04/20/2021 12:00:00 AM EDT tablet 20 TAKE ONE TABLET BY MOUTH TWICE A DAY FOR 10 DAYS TAKE ONE TABLET BY MOUTH TWICE A DAY FOR 10 DAYS SOLD: 04/20/2021 [facility] silver sulfadiazine 10 MG/ML Topical Cream [SSD] SILVER SULF ADIAZINE 04/20/2021 12:00:00 AM EDT cream 50 APPLY TOPICALLY EVERY DAY FOR 7 DAYS APPLY TOPICALLY EVERY DAY FOR 7 DAYS SOLD: 04/20/2021 [facility] 5 mg 04/02/2021 12:00:00 AM EDT tablet 90 TAKE ONE TABLET BY MOUTH EVERY DAY TAKE ONE TABLET BY MOUTH EVERY DAY SOLD: 07/08/2021 [facility] 5 mg 04/02/2021 12:00:00 AM EDT tablet 90 TAKE ONE TABLET BY MOUTH EVERY DAY TAKE ONE TABLET BY MOUTH EVERY DAY SOLD: 04/07/2021 [facility] pantoprazole 40 MG Delayed Release Oral Tablet PANTOPRAZOLE SODIUM 04/02/2021 12:00:00 AM EDT tablet,delayed release (DR/EC) 90 T RICHARD ONE TABLET BY MOUTH EVERY MORNING 1/2 HOUR BEFORE BREAKFAST, COMPLETE 3 MONTH COURSE AND THEN TAPER OFF TAKE ONE TABLET BY MOUTH EVERY MORNING 1 /2 HOUR BEFORE BREAKFAST, COMPLETE 3 MONTH COURSE AND THEN TAPER OFF SOLD: 07/08/2021 [facility] pantoprazole 40 MG Delayed Release Oral Tablet PANTOPRAZOLE SODIUM 04/02/2021 12:00:00 AM EDT tablet,delayed release (DR/EC) 90 T RICHARD ONE TABLET BY MOUTH EVERY MORNING 1/2 HOUR BEFORE BREAKFAST, COMPLETE 3 MONTH COURSE AND THEN TAPER OFF TAKE ONE TABLET BY MOUTH EVERY MORNING 1 /2 HOUR BEFORE BREAKFAST, COMPLETE 3 MONTH COURSE AND THEN TAPER OFF SOLD: 04/07/2021 [facility] 150 mg 02/13/2021 12:00:00 AM EDT tablet 90 TAKE ONE TABLET BY MOUTH EVERY DAY AT BEDTIME TAKE ONE TABLET BY MOUTH EVERY DAY AT BEDTIME SOLD: 05/20/2021 [facility] 150 mg 02/13/2021 12:00:00 AM EDT tablet 90 TAKE ONE TABLET BY MOUTH EVERY DAY AT BEDTIME TAKE ONE TABLET BY MOUTH EVERY DAY AT BEDTIME SOLD: 02/14/2021 [facility] 2.5 mg 02/11/2021 12:00:00 AM EDT tablet 90 TAKE ONE TABLET BY MOUTH EVERY DAY TAKE ONE TABLET BY MOUTH EVERY DAY SOLD: 02/13/2021 [facility] Amlodipine 2.5 MG Oral Tablet Amlodipine Besylate 02/11/2021 12:00: 00 AM EDT ORAL active [facility] ([facility]) 2.5 mg 02/11/2021 12:00:00 AM EDT tablet 90 TAKE ONE TABLET BY MOUTH EVERY DAY TAKE ONE TABLET BY MOUTH EVERY DAY SOLD: 05/20/2021 [facility] Amlodipine 2.5 MG Oral Tablet AMLODIPINE BESYLATE 01/12/2021 12: 00:00 AM EDT tablet 30 TAKE ONE TABLET BY MOUTH EVERY D AY TAKE ONE TABLET BY MOUTH EVERY DAY SOLD: 01/12/2021 [facility] Amlodipine 2.5 MG Oral Tablet amLODIPine Besylate 2.5 MG Oral Tablet amLODIPine Besylate 2.5 MG Oral Tablet 01/12/2021 12:00:00 AM EDT active amlodipine 2.5 MG Oral Tablet [facility] Metoclopramide 5 MG Oral Tablet Metoclopramide HCl 5 M G Oral Tablet Metoclopramide HCl 5 MG Oral Tablet 01/12/2021 12:00:00 AM EDT active metoclopramide 5 MG Oral Tablet IVELISSE ([facility]) 5 mg 01/12/2021 12:00:00 AM EDT tablet 90 TAKE ONE TABLET BY MOUTH DAILY TAKE ONE TABLET BY MOUTH DAILY SOLD: 01/12/2021 [facility] 5 mg 12/20/2020 12:00:00 AM EDT tablet 20 TAKE ONE TABLET BY MOUTH EVERY 6 HOURS NEEDED FOR NAUSEA AND VOMITING TAKE ONE TABLET BY MOUTH EVERY 6 HOURS NEEDED FOR NAUSEA AND VOMITING SOLD: 12/20/2020 [facility] Metronidazole 500 MG Oral Tablet METRONIDAZOLE 12/20/2020 12:0 0:00 AM EDT tablet 21 TAKE ONE TABLET BY MOUTH THREE T IMES A DAY TAKE ONE TABLET BY MOUTH THREE TIMES A DAY SOLD: 12/20/2020 [facility] 500 mg 12/20/2020 12:00:00 AM EDT tablet 14 TAKE ONE TABLET BY MOUTH TWICE A DAY TAKE ONE TABLET BY MOUTH TWICE A DAY SOLD: 12/20/2020 [facility] 62.5 mcg/actuation 12/07/2020 12:00:00 AM EDT blister with d evice 30 INHALE 1 PUFF BY MOUTH ONCE DAILY INHALE 1 PUFF BY MOUTH ONCE DAILY SOLD: 01/10/2021 [facility] 62.5 mcg/actuation 12/07/2020 12:00:00 AM EDT blister with d evice 30 INHALE 1 PUFF BY MOUTH ONCE DAILY INHALE 1 PUFF BY MOUTH ONCE DAILY SOLD: 03/07/2021 [facility] 62.5 mcg/actuation 12/07/2020 12:00:00 AM EDT blister with d evice 30 INHALE 1 PUFF BY MOUTH ONCE DAILY INHALE 1 PUFF BY MOUTH ONCE DAILY SOLD: 04/11/2021 [facility] 62.5 mcg/actuation 12/07/2020 12:00:00 AM EDT blister with d evice 30 INHALE 1 PUFF BY MOUTH ONCE DAILY INHALE 1 PUFF BY MOUTH ONCE DAILY SOLD: 02/09/2021 [facility] 62.5 mcg/actuation 12/07/2020 12:00:00 AM EDT blister with d evice 30 INHALE 1 PUFF BY MOUTH ONCE DAILY INHALE 1 PUFF BY MOUTH ONCE DAILY SOLD: 12/11/2020 [facility] 62.5 mcg/actuation 12/07/2020 12:00:00 AM EDT blister with d evice 30 INHALE 1 PUFF BY MOUTH ONCE DAILY INHALE 1 PUFF BY MOUTH ONCE DAILY SOLD: 05/17/2021 [facility] 20 mg 10/18/2020 12:00:00 AM EST tablet 90 TAKE ONE TABLET BY MOUTH EVERY DAY TAKE ONE TABLET BY MOUTH EVERY DAY SOLD: 10/23/2020 [facility] 20 mg 10/18/2020 12:00:00 AM EST tablet 30 TAKE ONE TABLET BY MOUTH EVERY DAY TAKE ONE TABLET BY MOUTH EVERY DAY SOLD: 07/08/2021 [facility] 20 mg 10/18/2020 12:00:00 AM EST tablet 30 TAKE ONE TABLET BY MOUTH EVERY DAY TAKE ONE TABLET BY MOUTH EVERY DAY SOLD: 04/20/2021 [facility] 20 mg 10/18/2020 12:00:00 AM EST tablet 90 TAKE ONE TABLET BY MOUTH EVERY DAY TAKE ONE TABLET BY MOUTH EVERY DAY SOLD: 01/17/2021 [facility] 20 mg 10/18/2020 12:00:00 AM EST tablet 30 TAKE ONE TABLET BY MOUTH EVERY DAY TAKE ONE TABLET BY MOUTH EVERY DAY SOLD: 06/03/2021 [facility] Simvastatin 20 MG Oral Tablet Simvastatin 20 MG Oral Tablet 10/17/2020 12:00:00 AM EST 1 active simvastatin 20 MG Oral Tablet [facility]) Amlodipine 5 MG Oral Tablet amLODIPine Besylate 5 MG O ral Tablet amLODIPine Besylate 5 MG Oral Tablet 10/01/2020 12:00:00 AM EST 1 aborted amlodipine 5 MG Oral Tablet [facility]) Cyclobenzaprine hydrochloride 10 MG Oral Tablet CYCLOBENZAPR INE HCL 09/24/2020 12:00:00 AM EST tablet 90 TAKE ONE TABLET BY MOUTH EVERY DAY TAKE ONE TABLET BY MOUTH EVERY DAY SOLD: 02/14/2021 [facility] Cyclobenzaprine hydrochloride 10 MG Oral Tablet CYCLOBENZAPR INE HCL 09/24/2020 12:00:00 AM EST tablet 90 TAKE ONE TABLET BY MOUTH EVERY DAY TAKE ONE TABLET BY MOUTH EVERY DAY SOLD: 04/24/2021 [facility] Cyclobenzaprine hydrochloride 10 MG Oral Tablet CYCLOBENZAPR INE HCL 09/24/2020 12:00:00 AM EST tablet 90 TAKE ONE TABLET BY MOUTH EVERY DAY TAKE ONE TABLET BY MOUTH EVERY DAY SOLD: 12/06/2020 [facility] Cyclobenzaprine hydrochloride 10 MG Oral Tablet CYCLOBENZAPR INE HCL 09/24/2020 12:00:00 AM EST tablet 90 TAKE ONE TABLET BY MOUTH EVERY DAY TAKE ONE TABLET BY MOUTH EVERY DAY SOLD: 09/25/2020 [facility] 5 mg 09/18/2020 12:00:00 AM EST tablet 90 TAKE ONE TABLET BY MOUTH EVERY DAY TAKE ONE TABLET BY MOUTH EVERY DAY SOLD: 09/18/2020 [facility] 5 mg 09/18/2020 12:00:00 AM EST tablet 90 TAKE ONE TABLET BY MOUTH EVERY DAY TAKE ONE TABLET BY MOUTH EVERY DAY SOLD: 12/06/2020 [facility] Amlodipine 5 MG Oral Tablet Amlodipine Besylate 09/18/2020 12:00:00 A M EST ORAL completed [facility] ([facility]) Docusate Sodium 50 MG / sennosides, SENIOR CARE 8.6 MG Oral Tablet S mayra-S 08/30/2020 12:00:00 AM EST ORAL active M [facility] ([facility]) Docusate Sodium 100 MG Oral Capsule Stool Softener 08/30/2020 12:00 :00 AM EST ORAL active [facility] ([facility]) Trazodone Hydrochloride 150 MG Oral Tablet Trazodone HCL 08/30/2020 12:00:00 AM EST ORAL active [facility] ([facility]) Centrum Silver 50+Women 08/30/2020 12:00:00 AM EST ORAL active [facility] ([facility]) pantoprazole 40 MG Delayed Release Oral Tablet Pantoprazole Sodium 08/30/2020 12:00:00 AM EST ORAL active M [facility] ([facility]) 7 ACTUAT umeclidinium 0.0625 MG/ACTUAT Dry Powder Inha ler [Incruse] Incruse Ellipta 08/30/2020 12:00:00 AM EST RESPIRATORY active [facility] ([facility]) Cyclobenzaprine hydrochloride 10 MG Oral Tablet Cyclobenzaprine HCl 10 MG Oral Tablet Cyclobenzaprine HCl 10 MG Oral Tablet 08/13/2020 12:00:00 AM EST 1 active cyclobenzaprine hydrochlorid e 10 MG Oral Tablet IV[facility]ISSE ([facility]) 150 mg 08/08/2020 12:00:00 AM EST tablet 90 TAKE ONE TABLET BY MOUTH AT BEDTIME TAKE ONE TABLET BY MOUTH AT BEDTIME SOLD: 11/17/2020 [facility] 150 mg 08/08/2020 12:00:00 AM EST tablet 90 TAKE ONE TABLET BY MOUTH AT BEDTIME TAKE ONE TABLET BY MOUTH AT BEDTIME SOLD: 08/22/2020 [facility] Trazodone Hydrochloride 150 MG Oral Tablet traZODone H Cl 150 MG Oral Tablet traZODone HCl 150 MG Oral Tablet 08/06/2020 12:00:00 AM EST active trazodone hydrochloride 150 MG Oral Tablet [facility] ([facility]) Simvastatin 20 MG Oral Tablet Simvastatin 20 MG Oral Tablet 07/25/2020 12:00:00 AM EST 1 aborted simvastatin 20 M G Oral Tablet [facility] 20 mg 07/19/2020 12:00:00 AM EDT tablet 90 TAKE ONE TABLET BY MOUTH EVERY DAY TAKE ONE TABLET BY MOUTH EVERY DAY SOLD: 07/24/2020 [facility] 875-125 mg 07/18/2020 12:00:00 AM EDT tablet 20 TAKE ONE TABLET BY MOUTH TWICE A DAY TAKE ONE TABLET BY MOUTH TWICE A DAY SOLD: 07/18/2020 [facility] Amoxicillin 875 MG / Clavulanate 125 MG Oral Tablet Amoxicillin-Pot Clavulanate 875-125 MG Oral Tablet Amoxicillin-Pot Clavulanate 875-125 MG Oral Tablet 07/18/2020 12:00:00 AM EDT completed amoxicillin 875 MG / clavulanate 125 MG Oral Tablet [facility] ([facility]) pantoprazole 40 MG Delayed Release Oral Tablet PANTOPRAZOLE SODIUM 06/26/2020 12:00:00 AM EDT tablet,delayed release (DR/EC) 90 T RICHARD ONE TABLET BY MOUTH EVERY MORNING 30 MINUTES BEFORE BREAKFAST. COMPLETE A TOTAL OF 3 MONTHS COURSE THEN TAPER OFF TAKE ONE TABLET BY MOUTH EVERY MORNING 3 0 MINUTES BEFORE BREAKFAST. COMPLETE A TOTAL OF 3 MONTHS COURSE THEN TAPER OFF SOLD: 09/18/2020 [facility] pantoprazole 40 MG Delayed Release Oral Tablet PANTOPRAZOLE SODIUM 06/26/2020 12:00:00 AM EDT tablet,delayed release (DR/EC) 90 T RICHARD ONE TABLET BY MOUTH EVERY MORNING 30 MINUTES BEFORE BREAKFAST. COMPLETE A TOTAL OF 3 MONTHS COURSE THEN TAPER OFF TAKE ONE TABLET BY MOUTH EVERY MORNING 3 0 MINUTES BEFORE BREAKFAST. COMPLETE A TOTAL OF 3 MONTHS COURSE THEN TAPER OFF SOLD: 06/26/2020 [facility] 0.45 mg 06/09/2020 12:00:00 AM EDT tablet 90 TAKE ONE TABLET BY MOUTH EVERY DAY TAKE ONE TABLET BY MOUTH EVERY DAY SOLD: 12/06/2020 [facility] 0.45 mg 06/09/2020 12:00:00 AM EDT tablet 90 TAKE ONE TABLET BY MOUTH EVERY DAY TAKE ONE TABLET BY MOUTH EVERY DAY SOLD: 06/21/2020 [facility] 0.45 mg 06/09/2020 12:00:00 AM EDT tablet 90 TAKE ONE TABLET BY MOUTH EVERY DAY TAKE ONE TABLET BY MOUTH EVERY DAY SOLD: 02/14/2021 [facility] 0.45 mg 06/09/2020 12:00:00 AM EDT tablet 90 TAKE ONE TABLET BY MOUTH EVERY DAY TAKE ONE TABLET BY MOUTH EVERY DAY SOLD: 09/18/2020 [facility] Estrogens, Conjugated (SENIOR CARE) 0.45 MG Oral Tablet [Premarin] Premarin 0.45 MG Oral Tablet Premarin 0.45 MG Oral Tablet 06/08/2020 12:00:00 AM EDT active estrogens, conjugated (SENIOR CARE) 0.45 MG Oral Tablet [Premarin] T[facility] ([facility]) 62.5 mcg/actuation 05/30/2020 12:00:00 AM EDT blister with d evice 30 INHALE 1 PUFF BY MOUTH ONCE DAILY INHALE 1 PUFF BY MOUTH ONCE DAILY SOLD: 09/01/2020 [facility] 62.5 mcg/actuation 05/30/2020 12:00:00 AM EDT blister with d evice 30 INHALE 1 PUFF BY MOUTH ONCE DAILY INHALE 1 PUFF BY MOUTH ONCE DAILY SOLD: 07/02/2020 [facility] 62.5 mcg/actuation 05/30/2020 12:00:00 AM EDT blister with d evice 30 INHALE 1 PUFF BY MOUTH ONCE DAILY INHALE 1 PUFF BY MOUTH ONCE DAILY SOLD: 11/01/2020 [facility] 62.5 mcg/actuation 05/30/2020 12:00:00 AM EDT blister with d evice 30 INHALE 1 PUFF BY MOUTH ONCE DAILY INHALE 1 PUFF BY MOUTH ONCE DAILY SOLD: 05/31/2020 [facility] 62.5 mcg/actuation 05/30/2020 12:00:00 AM EDT blister with d evice 30 INHALE 1 PUFF BY MOUTH ONCE DAILY INHALE 1 PUFF BY MOUTH ONCE DAILY SOLD: 08/03/2020 [facility] 62.5 mcg/actuation 05/30/2020 12:00:00 AM EDT blister with d evice 30 INHALE 1 PUFF BY MOUTH ONCE DAILY INHALE 1 PUFF BY MOUTH ONCE DAILY SOLD: 09/28/2020 [facility] pantoprazole 40 MG Delayed Release Oral Tablet PANTOPRAZOLE SODIUM 04/19/2020 12:00:00 AM EDT tablet,delayed release (DR/EC) 90 T RICHARD ONE TABLET BY MOUTH EVERY MORNING 1/2 HOUR BEFORE BREAKFAST, COMPLETE 3 MONTH COURSE AND THEN TAPER OFF TAKE ONE TABLET BY MOUTH EVERY MORNING 1 /2 HOUR BEFORE BREAKFAST, COMPLETE 3 MONTH COURSE AND THEN TAPER OFF SOLD: 12/06/2020 [facility] 4 mg 03/27/2020 12:00:00 AM EDT tablet 60 TAKE ONE TABLET BY MOUTH 1-2 TIMES A DAY BEFORE MEALS - TAKE ONLY WHEN HAVING NAUSEA TAKE ONE TABLET BY MOUTH 1-2 TIMES A DAY BEFORE MEALS - TAKE ONLY WHEN HAVING NAUSEA SOLD: 03/07/2021 [facility] 10 mg 03/06/2020 12:00:00 AM EDT tablet 79 TAKE ONE TABLET BY MOUTH EVERY DAY TAKE ONE TABLET BY MOUTH EVERY DAY SOLD: 11/17/2020 [facility] 10 mg 03/06/2020 12:00:00 AM EDT tablet 90 TAKE ONE TABLET BY MOUTH EVERY DAY TAKE ONE TABLET BY MOUTH EVERY DAY SOLD: 05/27/2020 [facility] Amlodipine 10 MG Oral Tablet amLODIPine Besylate 10 MG Oral Tablet amLODIPine Besylate 10 MG Oral Tablet 03/06/2020 12:00:00 AM EDT 1 aborted amlodipine 10 MG Oral Tablet [facility] ([facility] 10 mg 03/06/2020 12:00:00 AM EDT tablet 90 TAKE ONE TABLET BY MOUTH EVERY DAY TAKE ONE TABLET BY MOUTH EVERY DAY SOLD: 08/22/2020 [facility] Estrogens, Conjugated (SENIOR CARE) 0.45 MG Oral Tablet [Premarin] Premarin 0.45 MG Oral Tablet Premarin 0.45 MG Oral Tablet 03/05/2020 12:00:00 AM EDT aborted estrogens, conjugated (SENIOR CARE) 0.45 MG Oral Tablet [Premarin] [facility] 150 mg 02/20/2020 12:00:00 AM EDT tablet 75 TAKE ONE TABLET BY MOUTH AT BEDTIME TAKE ONE TABLET BY MOUTH AT BEDTIME SOLD: 05/27/2020 [facility] Cyclobenzaprine hydrochloride 10 MG Oral Tablet CYCLOBENZAPR INE HCL 11/11/2019 12:00:00 AM EST tablet 90 TAKE ONE TABLET BY MOUTH EVERY DAY TAKE ONE TABLET BY MOUTH EVERY DAY SOLD: 07/18/2020 [facility] Trazodone Hydrochloride 150 MG Oral Tablet traZODone H Cl 150 MG Oral Tablet traZODone HCl 150 MG Oral Tablet 11/11/2019 12:00:00 AM EST aborted trazodone hydrochloride 150 MG Oral Tablet [facility] ([facility]) Cyclobenzaprine hydrochloride 10 MG Oral Tablet Cyclobenzaprine HCl 10 MG Oral Tablet Cyclobenzaprine HCl 10 MG Oral Tablet 09/22/2019 12:00:00 AM EST 1 aborted cyclobenzaprine hydrochlorid e 10 MG Oral Tablet [facility] ([facility]) Insurance Providers Payer name Policy type / Coverage type Policy ID Covered libertarian ID Covered libertarian's relationship to blake Policy Blake Plan Information BLUE CHOICE OPTIONS 7 [id number] [facility] [id number] Self [id number] MEDICARE [id number] SP [id number] A [place]ICAID [place] [id number] SP [id number] Dual Complete Commercial [id number] Self [id number] Dual Complete Commercial [id number] Self [id number] United[employer] Other 0 [id number] Self 0 UnitedHealthcare Other [place]ARE [id number] Self [facility] ARE MEDICAID [id number] SP [id number] [facility] [id number] SP [id number] UnitedHealthcare Other [place]ARE [id number] Self [facility] ARE MEDICARE COMPLETE [id number] SP [id number] UnitedHealthcare Other [place]ARE [id number] Self [facility] ARE UnitedHealthcare Other [place]ARE [id number] Self [facility] ARE UnitedHealthcare Other 0 [id number] Self 0 [employer]Health[employer] Other 0 [id number] Self 0 UnitedHealthcare Other 0 [id number] Self 0 UnitedHealth[employer] Other 0 [id number] Self 0 UNITED HEALTHCARE MCRO [id number] SP [id number] Needs Workers Comp Information WorkComp Health Claim [id number] Self [id number] Workers Comp I- FA [employer] Health Claim [id number] Employee [id number] [facility] MCRO [id number] SP [id number] MEDICARE COMPLETE [id number] SP [id number] UnitedHealthcare Other 0 [id number] Self 0 UnitedHealthcare Other 0 [id number] Self 0 [facility] Other 0 [id number] Self 0 [facility] Other 0 [id number] Self 0 Medicaid Medigap Part B [id number] Self [id number] [facility] Dual Cov Plan Commercial [id number] Self [id number] [facility] Other 0 [id number] Self 0 [facility] Other 0 [id number] Self 0 Medicaid Medigap Part B [id number] Self [id number] Medicaid [facility] Other 0 [id number] Self 0 Medicare [address] [facility] Other 0 [id number] S elf 0 Medicaid of [place] Other 0 [id number] Self 0 Medicare Part B [address] [facility] Other 0 [id number] S elf 0 MEDICARE [id number] SP [id number] A Medicaid [facility] Other 0 [id number] Self 0 Medicare Part B of [facility] Other 0 [id number] S elf 0 [place] Other 0 [id number] Self 0 Medicare Part B of [facility] Other 0 [id number] S elf 0 Medicaid [place] Medigap Part B [id number] Self [id number] Medicare Natl Gov't Servi Medicare Primary [id number] Self [id number] Medicaid of [place] Other 0 [id number] Self 0 Medicare Part [address] [facility] Other 0 [id number] S elf 0 [place] Other 0 [id number] Self 0 Medicare Part B [address] [facility] Other 0 [id number] S elf 0 [place] Other 0 [id number] Self 0 Medicare Part B of [facility] Other 0 [id number] S elf 0 [place] Other 0 [id number] Self 0 Medicare Part B of [facility] Other 0 [id number] S elf 0 [place] Other 0 [id number] Self 0 Medicare Part B of [facility] Other 0 [id number] S elf 0 [place] Other 0 [id number] Self 0 Medicare Part B of [facility] Other 0 [id number] S elf 0 [place] Other 0 [id number] Self 0 Medicare Part B [address] [facility] Other 0 [id number] S elf 0 MEDICAID W [id number] S [id number] BLUE CHOICE OPTION O [id number] S [id number] MEDICAID 3 [id number] 1 [id number] SELFPAY 5 UNAVAILABLE 1 UNAVAILA BLE Medicaid [place] Other 0 [id number] Self 0 SELF PAY 5 UNAVAILABLE 1 UNAVAILA BLE [place] [id number] SP [id number] P [facility] [id number] SP [id number] [place] [id number] SP [id number] MEDICAID M [id number] S [id number] [facility](MCAID) O [id number] S [id number] Medicaid of [place] Other 0 [id number] Self 0 [place] Other 0 [id number] Self 0 [place] Other 0 [id number] Self 0 MEDICAID [id number] SP [id number] [place] Other 0 [id number] Self 0 [place] Other 0 [id number] Self 0 [place] Other 0 [id number] Self 0 [place] Other 0 [id number] Self 0 [facility] [place] Medigap Part B [id number] Self [id number] Medicaid of [place] Other 0 [id number] Self 0 [place] Other 0 [id number] Self 0 [employer]care Other [id number] [facility] Health Maintenance Organization (HMO) [id number] Self [id number] [place] Medigap Part B [id number] Self [id number] Problems, Conditions, and Diagnoses Code Display Name Description Problem Type Effective Dates Data Source(s) 536.3 Gastroparesis Gastroparesis Problem 10/03/2020 10:54:00 AM [facility] Surgeries/Procedures Procedure Description Date Indications Data Source(s) Annual wellness visit, includes a person alized prevention plan of service (pps), subsequent visit - subseq't annual wellness exam(1 yr after Initial) 10/01/2020 12:00:00 AM [facility] ([facility]) Annual depression screening, 15 minutes -Annual depr ession screening- 15 min. (Distinct Seperate service-same day) 10/01/2020 12:00:00 AM [facility] ([facility]) ECG ROUTINE ECG W/LEAST 12 LDS W/I&R 08/31/2020 12:00: 00 AM EST [facility] ([facility]) Fine Needle Aspiration Biopsy Inlcd Ultrasound Guidance 05/22/2020 12:00:00 AM EDT [facility] ([facility]) Echography Soft Tissue Hand & Neck 05/22/2020 12:00:00 AM EDT [facility] [facility] Results ID Date Data Source [id number] 12/19/2020 01:04:00 PM EDT [facility] ([facility]) Name Value Range Interpretation Code Description Data Lucita rce(s) Supporting Document(s) Alanine aminotransferase [Enzymatic activity/volume] in Serum or Pl asma 14 [facility] ([facility]) Calcium [Mass/volume] in Serum or Plasma 9.5 [facility] ([facility]) Albumin [Mass/volume] in Serum or Plasma 1.2 [facility] ([facility]) Chloride [Moles/volume] in Serum or Plasma 108 [facility] ([facility]) Carbon dioxide, total [Moles/volume] in Serum or Plasma 27 [facility] ([facility]) Potassium [Moles/volume] in Serum or Plasma 3.6 [facility] Protein [Mass/volume] in Serum or Plasma 7.6 [facility] ([facility]) Alkaline phosphatase [Enzymatic activity/volume] in Serum or Plasma 8 7 [facility] ([facility]) Sodium 140 [facility] ([facility]) Aspartate aminotransferase [Enzymatic activity/volume] in Serum or Plasma 8 [facility] ([facility]) Glucose 112 70-100 [facility] ([facility]) Urea nitrogen [Mass/volume] in Serum or Plasma 14 [facility] ([facility]) Creatinine For GFR 0.90 [facility] ([facility]) ID Date Data Source [id number] 12/19/2020 01:04:00 PM EDT [facility] ([facility]) Name Value Range Interpretation Code Description Data Lucita rce(s) Supporting Document(s) White Blood Count 10.3 4.0-10.0 [facility] ([facility]) Red Blood Count 4.79 4.00-5.40 [facility] ([facility]) Platelets 367 150-450 [facility] ([facility]) Hematocrit 42.9 36.0-47.0 [facility] ([facility]) Hemoglobin 14.4 12.0-15.5 [facility] ([facility]) ID Date Data Source [id number] 09/29/2020 08:14:00 AM EST [facility] Name Value Range Interpretation Code Description Data Lucita rce(s) Supporting Document(s) Leukocytes [#/volume] in Blood by Automated count 10.2 10*3/uL 4.45-1 0.71 N [facility] Erythrocytes [#/volume] in Blood by Automated count 4.54 10*6/uL 4.20 -5.40 N [facility] Hemoglobin [Moles/volume] in Blood 13.8 g/dL 10.7-15.4 N [facility] Hematocrit [Volume Fraction] of Blood by Automated count 41.8 % 3 7-47 N [facility] Erythrocyte mean corpuscular volume [Ent itic volume] in Cord blood by Automated count 92.1 fL 80-96 N [facility] ital Erythrocyte mean corpuscular hemoglobin [Entitic mass] by Automated count 30.4 pg 27[facility] mean corpuscular hemoglobin concentration [Mass/volume] in Cord blood 33.0 g/dL 33-37 N [facility] ital Erythrocyte distribution width [Entitic volume] by Automated count 13 % 11-15 N [facility] Platelets [#/volume] in Blood by Automated count 346 10*3/uL 130-472 N [facility] Platelet mean volume [Entitic volume] in Blood 8.2 fL 9.1-13. 1 Below low normal [facility] Neutrophils/100 leukocytes in Blood by Automated count 48.6 % 41- 77 N [facility] Neutrophils [#/volume] in Blood by Automated count 5.0 U 1.7-7.6 N [facility] Lymphocytes/100 leukocytes in Blood by Automated count 41.2 % 14- 46 N [facility] Lymphocytes [#/volume] in Blood by Automated count 4.2 U 0.6-4.6 N [facility] Monocytes/100 leukocytes in Blood by Automated count 6.8 % 4-12 N [facility] Monocytes [#/volume] in Blood by Automated count 0.7 U 0.2-1.2 N [facility] Eosinophils/100 leukocytes in Blood by Automated count 2.6 % 0-7 N [facility] Eosinophils [#/volume] in Blood by Automated count 0.3 U 0.0-0.5 N [facility] Basophils/100 leukocytes in Blood by Automated count 0.6 % 0.4-1 .3 N [facility] Basophils [#/volume] in Blood by Automated count 0.1 U 0.0-0.2 N [facility] NUCLEATED RED BLOOD CELL 0 % [facility] NUCLEATED RED BLOOD CELL# 0 U [facility] Immature granulocytes [Presence] in Blood by Automated count 0-2 N [facility] Immature granulocytes [#/volume] in Blood by Automated count 0.0 U 0-0.1 N [facility] Manual Differential panel - Blood NO [facility] ID Date Data Source [id number] 09/29/2020 09:07:00 AM EST [facility] Name Value Range Interpretation Code Description Data Lucita rce(s) Supporting Document(s) Urea nitrogen [Mass/volume] in Serum or Plasma 12 mg/dL 9-23 N [facility] Sodium [Moles/volume] in Serum or Plasma 142 mmol/L 132-146 N [facility] Potassium [Moles/volume] in Serum or Plasma 4.2 mmol/L 3.5-5.5 N [facility] Chloride [Moles/volume] in Serum or Plasma 107 mmol/L 99-109 [facility] Carbon dioxide, total [Moles/volume] in Serum or Plasma 32 mmol/ L 20-31 Above high normal [facility] Anion gap in Serum or Plasma 7 mmol/L 8-16 Below low normal [facility] Glucose [Mass/volume] in Serum or Plasma 99 mg/dL 74-106 N [facility] Creatinine 0.9 mg/dL 0.5-1.1 [facility] Glomerular filtration rate/1.73 sq M.pre dicted [Volume Rate/Area] in Serum or Plasma Greater Than 60 ABOVE 60 [facility] Alanine aminotransferase [Enzymatic acti vity/volume] in Serum or Plasma by With P-5'-P 16 U/L 10-49 [facility] ital Aspartate aminotransferase [Enzymatic ac tivity/volume] in Serum or Plasma by With P-5'-P 13 U/L 0-33 [facility] pital Alkaline phosphatase [Enzymatic activity/volume] in Serum or Plasma 83 U/L 45-129 [facility] Calcium [Mass/volume] in Serum or Plasma 9.2 mg/dL 8.5-10.1 [facility] Bilirubin.total [Mass/volume] in Serum or Plasma 0.4 mg/dL 0.3-1.2 [facility] Albumin [Mass/volume] in Serum or Plasma by Bromocresol purple (BCP) dye binding method 3.8 g/dL 3.2-4.8 [facility] ital Protein [Mass/volume] in Serum or Plasma 7.2 g/dL 5.7-8.2 [facility] ID Date Data Source [id number] 09/29/2020 09:07:00 AM EST [facility] Name Value Range Interpretation Code Description Data Lucita rce(s) Supporting Document(s) Triglycerides 119 mg/dL 0-150 N [facility] Cholesterol 183 mg/dL 120-200 N [facility] HDL Cholesterol 51 mg/dL [facility] HDL Less than 40 mg/dL: Major risk for CHDHDL Greater than 59 mg/dL: Low risk for CHD LDL Cholesterol, Calc 109 mg/dL 0-100 Above high normal [facility] ID Date Data Source [id number] 09/29/2020 08:00:00 AM [facility] ([facility]) Name Value Range Interpretation Code Description Data Lucita rce(s) Supporting Document(s) Reported Physicians See Note Reported Physici [facility] ([facility]) Note: Reported Physicians:Ordering: Lc CANNONding: Breanne MERRITT To: Rosalie Oliveira ID Date Data Source [id number] 09/29/2020 08:00:00 AM [facility] ([facility]) Name Value Range Interpretation Code Description Data Lucita rce(s) Supporting Document(s) Alanine aminotransferase [Enzymatic acti vity/volume] in Serum or Plasma by With P-5'-P 16 enzyme_unit_per_liter Normal [facility] ([facility]) Note: Responsible Observer: SGPT/ALT SGP T/ALT 400.1750 (G) Calcium [Mass/volume] in Serum or Plasma 9.2 MilliGramsPerDeciLiter_[Mass_Concentration_Units] Normal Calcium [facility] ([facility]) Note: Responsible Observer: Calcium Calc ium 400.2500 (G) Bilirubin.total [Mass/volume] in Serum or Plasma 0.4 MilliGramsPerDeciLiter_[Mass_Concentration_Units] Normal Bilirub [facility] ([facility]) Note: Responsible Observer: T [facility] Total Bilirubin 400.2600 (G) Carbon dioxide, total [Moles/volume] in Serum or Plasm a 32 MilliMolesPerLiter_[Substance_Concentration_Units] Above hig h normal CO2 [facility] ([facility]) Note: Responsible Observer: CO2 Carbon D ioxide 400.1400 (G) Chloride [Moles/volume] in Serum or Plasma 107 MilliMolesPerLiter_[Substance_Concentration_Units] Normal Chloride [facility] ([facility]) Note: Responsible Observer: Chloride Chl oride 400.1250 (G) Glucose [Mass/volume] in Serum or Plasma 99 MilliGramsPerDeciLiter_[Mass_Concentration_Units] Normal Glucose [facility] ([facility]) Note: Responsible Observer: Glucose Gluc ose 400.1500 (G) Potassium [Moles/volume] in Serum or Plasma 4.2 MilliMolesPerLiter_[Substance_Concentration_Units] Normal Potassium [facility] ([facility]) Note: Responsible Observer: K Potassium 400.1210 (G) Aspartate aminotransferase [Enzymatic ac tivity/volume] in Serum or Plasma by With P-5'-P 13 enzyme_unit_per_liter Normal AST [facility] ([facility]) Note: Responsible Observer: SGOT / AST S GOT / AST 400.1900 (G) Urea nitrogen [Mass/volume] in Serum or Plasma 12 MilliGramsPerDeciLiter_[Mass_Concentration_Units] Normal BUN [facility] ([facility]) Note: Responsible Observer: BUN Blood Ur ea Nitrogen 400.1000 (G) Protein [Mass/volume] in Serum or Plasma 7.2 GramsPerDeciLiter_[Mass_Concentration_Units] Normal Pro t [facility] ([facility]) Note: Responsible Observer: TP Total Pro tein 400.2800 (G) Sodium [Moles/volume] in Serum or Plasma 142 MilliMolesPerLiter_[Substance_Concentration_Units] Normal Sodium [facility] ([facility]) Note: Responsible Observer: Sodium Sodiu m 400.1100 (G) Glomerular filtration rate/1.73 sq M.pre dicted [Volume Rate/Area] in Serum or Plasma Greater Than 60 [facility]BS[facility] ([facility]) Note: Responsible Observer: GFR Glomerul ar Filt Rate Calc 400.1605 (D) Alkaline phosphatase [Enzymatic activity/volume] in Se rum or Plasma 83 enzyme_unit_per_liter Normal ALP [facility] ( [facility]) Note: Responsible Observer: ALP Alkaline Phosphatase 400.2000 (G) Anion gap in Serum or Plasma 7 MilliMolesPerLiter_[Substance_Concentration_Units] Below low normal Anion Gap SerPl-sCnc [facility] ([facility]) Note: Responsible Observer: ANION GAP AN ION GAP 400.1402 (E) Albumin [Mass/volume] in Serum or Plasma by Bromocresol purple (BCP) dye binding method 3.8 GramsPerDeciLiter_[Mass_Concentration_Units] Normal Albumin SerPl BCP-mCnc [facility] ([facility]) Note: Responsible Observer: Albumin [place] 400.2700 (G) Creatinine [Moles/volume] in Vitreous fluid 0.9 MilliGramsPerDeciLiter_[Mass_Concentration_Units] Normal Creatinine [facility] ([facility]) Note: Responsible Observer: Creatinine C reatinine 400.1600 (G) ID Date Data Source [id number] 09/29/2020 08:00:00 AM EST [facility] ([facility]) Name Value Range Interpretation Code Description Data Lucita rce(s) Supporting Document(s) Erythrocyte distribution width [Entitic volume] by Automated cou nt 13 percent Normal RDW RBC Auto [facility] ([facility]) Note: Responsible Observer: RDW RDW 100 .0900 (B) Erythrocyte mean corpuscular volume [Ent itic volume] in Cord blood by Automated count 92.1 FemtoLiter_[SI_Volume_Units] Normal MCV Bld Co Auto [facility] ([facility]) Note: Responsible Observer: MCV MCV 100 .0600 (B) Manual Differential panel - Blood NO Ma nual diff Bld [facility] ([facility]) Note: Responsible Observer: CBC Manual D ifferential Added 100.1990 (B) Platelet mean volume [Entitic volume] in Blood 8.2 FemtoLite r_[SI_Volume_Units] Below low normal PMV Bld [facility] Note: Responsible Observer: MPV MPV 100 .1100 (B) Immature granulocytes [Presence] in Blood by Automated count See No te Normal Imm Granulocytes Bld Ql Auto [facility] ([facility]) Note: [id number] Ob kitchen food server: IG% IG% 100.1375 (B) Erythrocyte mean corpuscular hemoglobin concentration [Mass/volume] in Cord blood 33.0 GramsPerDeciLiter_[Mass_Concentration_Units] Normal MCHC BldCo-mCnc [facility] ([facility]) Note: Responsible Observer: MCHC MCHC 1 00.0800 (B) Hematocrit [Volume Fraction] of Blood by Automated count 41.8 perce nt Normal Hct VFr Bld Auto [facility] ([facility]) Note: Responsible Observer: HEMATOCRIT H EMATOCRIT 100.0500 (B) Immature granulocytes [#/volume] in Blood by Automated count 0.0 Un it Imm Granulocytes # Bld Auto [facility] ([facility]) Note: Responsible Observer: IG# IG# 100 .1400 (B) Monocytes/100 leukocytes in Blood by Automated count 6.8 percent Normal Monocytes/leuk NFr Bld Auto [facility] ([facility]) Note: Responsible Observer: MONO % MONO % 100.1225 (B) Hemoglobin [Moles/volume] in Blood 13.8 GramsPerDeciLiter_[Mass_Concentration_Units] Normal Hgb Bld-sCnc [facility] ([facility]) Note: Responsible Observer: HGB HEMOGLOB IN 100.0400 (B) Basophils [#/volume] in Blood by Automated count 0.1 Unit Normal Basophils # Bld Auto [facility] ([facility]) Note: Responsible Observer: BASO # BASO# 100.1350 (B) Leukocytes [#/volume] in Blood by Automated count 10.2 ThousandsPerMicroLiter_[Number_Concentration_Units] Normal WBC # Bld Auto [facility] ([facility]) Note: Responsible Observer: WBC WHITE BL OOD COUNT 100.0100 (E) Basophils/100 leukocytes in Blood by Automated count 0.6 percent Normal Basophils/leuk NFr Bld Auto [facility] ([facility]) Note: Responsible Observer: BASO % BASO % 100.1325 (B) Eosinophils [#/volume] in Blood by Automated count 0.3 Unit Normal Eosinophil # Bld Auto [facility] ([facility]) Note: Responsible Observer: EOS # EOS# 100.1300 (D) Lymphocytes [#/volume] in Blood by Automated count 4.2 Unit Normal Lymphocytes # Bld Auto [facility] ([facility]) Note: Responsible Observer: LYMPH # LYMP H# 100.1200 (B) Eosinophils/100 leukocytes in Blood by Automated count 2.6 percent Normal Eosinophil/leuk NFr Bld Auto [facility] ([facility]) Note: Responsible Observer: EOS % EOS % 100.1275 (B) Lymphocytes/100 leukocytes in Blood by Automated count 41.2 percent Normal Lymphocytes/leuk NFr Bld Auto [facility] ([facility]) Note: Responsible Observer: LYMPH % LYMP H % 100.1175 (B) Monocytes [#/volume] in Blood by Automated count 0.7 Unit Normal Monocytes # Bld Auto [facility] ([facility]) Note: Responsible Observer: MONO # MONO# 100.1250 (C) Neutrophils/100 leukocytes in Blood by Automated count 48.6 percent Normal Neutrophils/leuk NFr Bld Auto [facility] ([facility]) Note: Responsible Observer: NEUT% NEUT% 100.1125 (B) Neutrophils [#/volume] in Blood by Automated count 5.0 Unit Normal Neutrophils # Bld Auto [facility] ([facility]) Note: Responsible Observer: NEUT# NEUT# 100.1150 (B) Platelets [#/volume] in Blood by Automated count 346 ThousandsPerMicroLiter_[Number_Concentration_Units] Normal Platelet # Bld Auto [facility] ([facility]) Note: Responsible Observer: PLATELET COU NT PLATELET COUNT 100.1000 (D) Erythrocyte mean corpuscular hemoglobin [Entitic mass] by Automated count 30.4 PicoGram_[SI_Mass_Units] Normal MCH RBC Qn Auto [facility] ([facility]) Note: Responsible Observer: MCH MCH 100 .0700 (B) Erythrocytes [#/volume] in Blood by Automated count 4. 54 MillionsPerMicroLiter_[Number_Concentration_Units] Normal RBC # Bld Auto [facility] ([facility]) Note: Responsible Observer: RBC Red Bloo d Count 100.0300 (B) NUCLEATED RED BLOOD CELL# 0 Unit NUCLEATED RED BLOOD CELL# [facility] ([facility]) Note: Responsible Observer: NRBC# NUCLEA RICHARD RBC 100.1362 (A) NUCLEATED RED BLOOD CELL 0 percent NUCLEATED R ED BLOOD CELL [facility] ([facility]) Note: Responsible Observer: NRBC% NRBC% 100.1360 (B) ID Date Data Source [id number] 09/29/2020 08:00:00 AM EST [facility] ([facility]) Name Value Range Interpretation Code Description Data Lucita rce(s) Supporting Document(s) Reported Physicians See Note Reported Physici ans [facility] ([facility]) Note: Reported Physicians:Ordering: Jimmie CANNON: Breanne MERRITT To: Rosalie Oliveira ID Date Data Source [id number] 09/29/2020 08:00:00 AM EST [facility] ([facility]) Name Value Range Interpretation Code Description Data Lucita rce(s) Supporting Document(s) Cholesterol [Moles/volume] in Pericardial fluid 183 MilliGramsPerDeciLiter_[Mass_Concentration_Units] Normal Cholesterol [facility] ([facility]) Note: Responsible Observer: Cholesterol Cholesterol 400.3100 (G) HDL Cholesterol 51 MilliGramsPerDeciLiter_[Mass_Concentration_Units ] HDL Cholesterol [facility] ([facility]) Note: HDL Less than 40 mg/dL: Major ris k for CHDHDL Greater than 59 mg/dL: Low risk for CHDResponsible Observer: HDL HDL Cholesterol 400.3150 (H) LDL Cholesterol, Calc 109 MilliGramsPerDeciLiter_[Mass_Concentra tion_Units] Above high normal LDL Cholesterol, Calc [facility] ([facility]) Note: Responsible Observer: LDL CHOL MARCO C LDL Cholesterol, Calculated 400.3155 (F) Triglycerides 119 MilliGramsPerDeciLiter_[Mass_Concentration_Units] Normal Triglycerides [facility] ([facility]) Note: Responsible Observer: Triglyceride s Triglycerides 400.2951 (G) ID Date Data Source [id number] 05/22/2020 05:03:[facility] Name Value Range Interpretation Code Description Data Lucita rce(s) Supporting Document(s) Microscopic observation [Identifier] in Unspecified specimen by Non- gynecological cytology method [facility] SPECIMEN: FNA Left lower lobe thyroid nodule Specimen received in Cytolyt SPECIMEN ADEQUACY: Unsatisfactory for evaluation Sparse cellularity CATEGORIZATION: DESCRIPTIONS: Specimen consists of few scattered hemosiderin laden macrophages and blood elements only. COMMENTS: Lack of follicular component precludes definitive diagnosis. 05/23/2020 - [address](ASCP) 05/23/2020 0806 (Prelim) Signed LAILA SALTER MD 05/23/2020 1348 Procedure Social History No Information Vital Signs ID Date Data Source UNK Name Value Range Interpretation Code Description Data Source(s) Systolic blood pressure 102 mm[Hg] 102 mm[Hg] G [facility] ([facility]) Diastolic blood pressure 68 mm[Hg] 68 mm[Hg] [facility] ([facility]) Heart rate 56 /min 56 /min [facility] ([facility]) Respiratory rate 20 /min 20 /min [facility] ([facility]) Body height 64.75 [in_i] 64.75 [in_i] [facility] ([facility]) Body weight 147.5 [lb_av] 147.5 [lb_av] [facility]) Body mass index (BMI) [Ratio] 24.7 kg/m2 24.7 k g/m2 [facility]) Body surface area Derived from formula 1.73 m2 1.73 m2 [facility]) Respiratory rate 18 /min 18 /min [facility] ([facility]) Body temperature 98 [degF] 98 [degF] [facility]) Body height 64.75 [in_i] 64.75 [in_i] [facility]) Body weight 150 [lb_av] 150 [lb_av] [facility]) Body mass index (BMI) [Ratio] 25.2 kg/m2 25.2 k g/m2 [facility]) Body surface area Derived from formula 1.75 m2 1.75 m2 [facility]) Oxygen saturation in Arterial blood by Pulse oximetry 98 % 98 % [facility]) Systolic blood pressure 120 mm[Hg] 120 mm[Hg] G [facility] ([facility]) Diastolic blood pressure 82 mm[Hg] 82 mm[Hg] [facility] ([facility]) Heart rate 72 /min 72 /min [facility] ([facility]) Systolic blood pressure 120 mm[Hg] 120 mm[Hg] G [facility] ([facility]) Diastolic blood pressure 82 mm[Hg] 82 mm[Hg] [facility]) Heart rate 72 /min 72 /min [facility] ([facility]) Respiratory rate 18 /min 18 /min [facility] ([facility]) Body temperature 98 [degF] 98 [degF] [facility] ([facility]) Body height 64.75 [in_i] 64.75 [in_i] [facility] ([facility]) Body weight 150 [lb_av] 150 [lb_av] [facility] ([facility]) Body mass index (BMI) [Ratio] 25.2 kg/m2 25.2 k g/m2 [facility] ([facility]) Body surface area Derived from formula 1.75 m2 1.75 m2 [facility] ([facility]) Oxygen saturation in Arterial blood by Pulse oximetry 98 % 98 % [facility] ([facility]) Systolic blood pressure 120 mm[Hg] 120 mm[Hg] G [facility] ([facility]) Diastolic blood pressure 82 mm[Hg] 82 mm[Hg] [facility] ([facility]) Heart rate 72 /min 72 /min [facility] ([facility]) Respiratory rate 18 /min 18 /min [facility] ([facility]) Body temperature 98 [degF] 98 [degF] [facility] ([facility]) Body height 64.75 [in_i] 64.75 [in_i] [facility] ([facility]) Body weight 150 [lb_av] 150 [lb_av] [facility] ([facility]) Body mass index (BMI) [Ratio] 25.2 kg/m2 25.2 k g/m2 [facility] ([facility]) Body surface area Derived from formula 1.75 m2 1.75 m2 [facility] ([facility]) Oxygen saturation in Arterial blood by Pulse oximetry 98 % 98 % [facility] ([facility]) Diastolic blood pressure--supine 60 mm[Hg] 60 mm[Hg] [facility] ([facility]) [place], medium cuff Systolic blood pressure--standing 96 mm[Hg] 96 mm[Hg] [facility] ([facility]) [place], medium cuff Body weight 146.00 [lb_av] 146.00 [lb_av] [facility] ([facility]) Body height 65 [in_i] 65 [in_i] [facility] ([facility]) 5'5" Body mass index (BMI) [Ratio] 24.3 kg/m2 24.3 k g/m2 [facility] ([facility]) Heart rate 80 /min 80 /min [facility] ([facility]) regular Respiratory rate 16 /min 16 /min [facility] ( [facility]) nonlabored Systolic blood pressure--sitting 96 mm[Hg] 96 mm[Hg] [facility] ([facility]) [place], medium cuff Diastolic blood pressure--sitting 58 mm[Hg] 58 mm[Hg] [facility] ([facility]) [place], medium cuff Systolic blood pressure--supine 98 mm[Hg] 98 m m[Hg] [facility] ([facility]) [place], medium cuff Diastolic blood pressure--standing 56 mm[Hg] 5 6 mm[Hg] [facility] ([facility]) [place], medium cuff Body height 64.75 [in_i] 64.75 [in_i] [facility] ([facility]) Body surface area Derived from formula 1.71 m2 1.71 m2 [facility] ([facility]) Systolic blood pressure 125 mm[Hg] 125 mm[Hg] G [facility] ([facility]) Diastolic blood pressure 84 mm[Hg] 84 mm[Hg] [facility] ([facility]) Heart rate 87 /min 87 /min [facility] ([facility]) Body height 64.75 [in_i] 64.75 [in_i] [facility] ([facility]) Body weight 142 [lb_av] 142 [lb_av] [facility] ([facility]) Body mass index (BMI) [Ratio] 23.8 kg/m2 23.8 k g/m2 [facility] ([facility]) Body weight 146.25 [lb_av] 146.25 [lb_av] MEDEN T ([facility]) Systolic blood pressure 110 mm[Hg] 110 mm[Hg] M [facility] ([facility]) Diastolic blood pressure 70 mm[Hg] 70 mm[Hg] [facility] ([facility]) Heart rate 88 /min 88 /min [facility] ([facility]) Body height 63.5 [in_i] 63.5 [in_i] [facility] ([facility]) 5'3.50" Body mass index (BMI) [Ratio] 25.5 kg/m2 25.5 k g/m2 [facility] ([facility]) Oxygen saturation in Arterial blood by Pulse oximetry 90 % 90 % [facility] ([facility]) Systolic blood pressure 122 mm[Hg] 122 mm[Hg] [facility] ([facility]) Diastolic blood pressure 80 mm[Hg] 80 mm[Hg] [facility] ([facility]) Heart rate 76 /min 76 /min [facility] ([facility]) Body height 63.5 [in_i] 63.5 [in_i] [facility] ([facility]) 5'3.50" Body weight 143.31 [lb_av] 143.31 [lb_av] [facility] T ([facility]) Body mass index (BMI) [Ratio] 25.0 kg/m2 25.0 k g/m2 [facility] ([facility] ) Oxygen saturation in Arterial blood by Pulse oximetry 98 % 98 % [facility] ([facility] ) Patient Treatment Plan of Care Planned Activity Planned Date Details Description Data Source (s) Metoclopramide 5 MG Oral Tablet 01/12/2021 12:00:00 AM [facility] ([facility]) Amlodipine 2.5 MG Oral Tablet 01/12/2021 12:00:00 AM [facility] ([facility]) Simvastatin 20 MG Oral Tablet 10/17/2020 12:00:00 AM [facility]) Cyclobenzaprine hydrochloride 10 MG Oral Tablet 08/13/2020 12:00:00 AM [facility]) Trazodone Hydrochloride 150 MG Oral Tablet 08/06/2020 12:00:[address] [facility] ([facility]) Simvastatin 20 MG Oral Tablet 07/25/2020 12:00:00 AM [facility]) Amoxicillin 875 MG / Clavulanate 125 MG Oral Tablet 07/18/20 12:00:00 AM [facility] ([facility]) Estrogens, Conjugated (SENIOR CARE) 0.45 MG Oral Tablet [Puja rin] 06/08/2020 12:00:00 AM [facility] ([facility]) Amlodipine 10 MG Oral Tablet 03/06/2020 12:00:00 AM [facility] ([facility]) Estrogens, Conjugated (SENIOR CARE) 0.45 MG Oral Tablet [Puja rin] 03/05/2020 12:00:00 AM [facility] ([facility]) Trazodone Hydrochloride 150 MG Oral Tablet 11/11/2019 12:00:[address] [facility] ([facility]) Cyclobenzaprine hydrochloride 10 MG Oral Tablet 09/22/2019 12:00:00 AM [facility] ([facility])
[2021-07-16 14:01] LABS: BASO # 0.1 10^3/uL (0.0-0.2); BASO % 0.6 % (0.0-1.0); EOS # 0.2 10^3/uL (0.0-0.5); EOS % 1.9 % (0.0-3.0); HEMOGLOBIN 12.9 g/dl (12.0-15.5); LYMPH # 3.6 10^3/uL (1.5-5.0); LYMPH % 38.4 % (24.0-44.0); MEAN CORPUSCULAR HEMOGLOBIN 29.4 pg (27.0-33.0); MEAN CORPUSCULAR HGB CONC 33.1 g/dl (32.0-36.5); MEAN CORPUSCULAR VOLUME 88.8 fl (80.0-96.0); MONO # 0.5 10^3/uL (0.0-0.8); MONO % 5.2 % (2.0-8.0); NEUTROPHILS # 5.1 10^3/uL (1.5-8.5); NEUTROPHILS % 53.7 % (36.0-66.0); PLATELET COUNT, AUTOMATED 342 10^3/uL (150-450); RED BLOOD COUNT 4.39 10^6/uL (4.00-5.40); WHITE BLOOD COUNT 9.5 10^3/uL (4.0-10.0)
--- NOTE | 2021-07-16 14:13 | REP ---
INDICATION: CHEST PAIN. COMPARISON: None. TECHNIQUE: Portable FINDINGS: The technique utilized in obtaining the radiograph has magnified the cardiac silhouette and accentuated the interstitial markings. The superior mediastinal structures are midline. The cardiac silhouette is unremarkable in size, shape, and position. The diaphragmatic surfaces of the lungs are regular, and the costophrenic angles are clear. The pulmonary goff are clear. The imaged osseous structures are intact. IMPRESSION: There is no acute cardiopulmonary disease. <Electronically signed by Lauro Caceres > 07/16/21 [id number]
[2021-07-16 14:37] LABS: ALBUMIN 3.6 GM/DL (3.2-5.2); ALT/SGPT 16 U/L (12-78); BILIRUBIN,DIRECT < 0.1 MG/DL (0.0-0.2); BILIRUBIN,TOTAL 0.3 MG/DL (0.2-1.0); BLOOD UREA NITROGEN 11 MG/DL (7-18); CALCIUM LEVEL 9.3 MG/DL (8.5-10.1); CARBON DIOXIDE LEVEL 29 MEQ/L (21-32); CHLORIDE LEVEL 108 MEQ/L (98-107); CK-MB VALUE MASS < 1.0 NG/ML (<3.6); CPK CREATINE PHOSPHOKINASE 47 U/L (26-192); CREATININE FOR GFR 0.83 MG/DL (0.55-1.30); FREE T4 1.01 NG/DL (0.76-1.46); GLOMERULAR FILTRATION RATE > 60.0 (>51); GLUCOSE, FASTING 107 MG/DL (70-100); LIPASE 88 U/L (73-393); MB/CK RELATIVE INDEX 2.13 (< OR =4); NT-PRO BNP 110 PG/ML (<125); POTASSIUM SERUM 3.7 MEQ/L (3.5-5.1); SODIUM LEVEL 141 MEQ/L (136-145); TOTAL PROTEIN 6.9 GM/DL (6.4-8.2); TROPONIN I < 0.02 NG/ML (< 0.10)
[2021-07-16] MEDS ORDERED: ISOVUE-370 76% 100ML VIAL As Ordered ONE (14:50)
--- NOTE | 2021-07-16 15:04 | REP ---
INDICATION: left upper arm pain; r/o DVT. COMPARISON: None. TECHNIQUE: Multiple ultrasonographic images of the deep venous structures of the left upper extremity were obtained to rule out deep venous thrombosis. The contralateral subclavian vein was also interrogated in a limited fashion for comparison. FINDINGS: There is no abnormal echogenic material seen in any of the visualized deep venous structures of the left upper extremity. Coaptation where applicable is appropriate throughout. IMPRESSION: Negative exam. <Electronically signed by Lauro Caceres > 07/16/21 1500
--- NOTE | 2021-07-16 15:16 | REP ---
INDICATION: SOB; left sided chest pain COMPARISON: Multiple the latest 05/14/[address] scan of the chest without contrast no prior CT angiography examinations of the chest for comparison TECHNIQUE: CT angiography of the chest after the intravenous administration of 75 cc Isovue 370 attention pulmonary arteries. FINDINGS: There is excellent visualization of the pulmonary arterial vasculature. No focal filling defects are present that would be considered consistent with acute pulmonary emboli. There are no pleural or pericardial effusions. There is no mediastinal or hilar adenopathy. The imaged upper abdomen shows an 8 mm size nonobstructing calculus in the superior pole of the left kidney. This is unchanged. There is also left renal cyst which is unchanged. The imaged osseous structures are within normal limits. Evaluation of the lung goff shows no new abnormal nodules, masses, or opacities. There are multiple stable pulmonary nodules there are emphysematous changes status quo. IMPRESSION: There is no evidence of acute disease. There are multiple stable pulmonary nodules and there is evidence of emphysematous change status quo. Other findings as described above. <Electronically signed by Lauro Caceres > 07/16/21 [id number]
--- OUTSIDE RECORDS SUMMARY | 2021-07-16 15:53 | CCD ---
Author Author [facility] Organization [facility] Address Unknown Phone Unavailable Care Team Providers Care Fund Development Manager Name Role Phone MALLY MERRITT MD Unavailable Unavailable MALLY MERRITT MD Unavailable Unavailable Michael Marquis Unavailable Unavailable GANESH, B STAN OPTOMETRIC TECH Unavailable Unavailable GANESH, B STAN OPTOMETRIC TECH Unavailable Unavailable GANESH, B STAN OPTOMETRIC TECH Unavailable Unavailable GANESH, B STAN OPTOMETRIC TECH Unavailable Unavailable GANESH, B STAN OPTOMETRIC TECH Unavailable Unavailable GANESH, B STAN OPTOMETRIC TECH Unavailable Unavailable GANESH, B STAN OPTOMETRIC TECH Unavailable Unavailable GANESH, B STAN OPTOMETRIC TECH Unavailable Unavailable GANESH, B STAN OPTOMETRIC TECH Unavailable Unavailable GANESH, B STAN OPTOMETRIC TECH Unavailable Unavailable GANESH, B STAN OPTOMETRIC TECH Unavailable Unavailable GANESH, B STAN OPTOMETRIC TECH Unavailable Unavailable GANESH, B STAN OPTOMETRIC TECH Unavailable Unavailable GANESH, B STAN OPTOMETRIC TECH Unavailable Unavailable GANESH, B STAN OPTOMETRIC TECH Unavailable Unavailable GANESH, B STAN OPTOMETRIC TECH Unavailable Unavailable GANESH, B STAN OPTOMETRIC TECH Unavailable Unavailable GANESH, B STAN OPTOMETRIC TECH Unavailable Unavailable GANESH, B STAN OPTOMETRIC TECH Unavailable Unavailable GANESH, B STAN OPTOMETRIC TECH Unavailable Unavailable GANESH, B STAN OPTOMETRIC TECH Unavailable Unavailable GANESH, B STAN OPTOMETRIC TECH Unavailable Unavailable GANESH, B STAN OPTOMETRIC TECH Unavailable Unavailable GANESH, B STAN OPTOMETRIC TECH Unavailable Unavailable GANESH, B STAN OPTOMETRIC TECH Unavailable Unavailable GANESH, B STAN OPTOMETRIC TECH Unavailable Unavailable GANESH, B STAN OPTOMETRIC TECH Unavailable Unavailable GANESH, B STAN OPTOMETRIC TECH Unavailable Unavailable GANESH, B STAN OPTOMETRIC TECH Unavailable Unavailable GANESH, B STAN OPTOMETRIC TECH Unavailable Unavailable GANESH, B STAN OPTOMETRIC TECH Unavailable Unavailable GANESH, B STAN OPTOMETRIC TECH Unavailable Unavailable GANESH, B STAN OPTOMETRIC TECH Unavailable Unavailable GANESH, B STAN OPTOMETRIC TECH Unavailable Unavailable GANESH, B STAN OPTOMETRIC TECH Unavailable Unavailable GANESH, B STAN OPTOMETRIC TECH Unavailable Unavailable GANESH, B STAN OPTOMETRIC TECH Unavailable Unavailable GANESH, B STAN OPTOMETRIC TECH Unavailable Unavailable GANESH, B STAN OPTOMETRIC TECH Unavailable Unavailable GANESH, B STAN OPTOMETRIC TECH Unavailable Unavailable GANESH, B STAN OPTOMETRIC TECH Unavailable Unavailable GANESH, B STAN OPTOMETRIC TECH Unavailable Unavailable GANESH, B STAN OPTOMETRIC TECH Unavailable Unavailable GANESH, B STAN OPTOMETRIC TECH Unavailable Unavailable GANESH, B STAN OPTOMETRIC TECH Unavailable Unavailable GANESH, B STAN OPTOMETRIC TECH Unavailable Unavailable GANESH, B STAN OPTOMETRIC TECH Unavailable Unavailable GANESH, B STAN OPTOMETRIC TECH Unavailable Unavailable GANESH, B STAN OPTOMETRIC TECH Unavailable Unavailable GANESH, B STAN OPTOMETRIC TECH Unavailable Unavailable GANESH, B STAN OPTOMETRIC TECH Unavailable Unavailable GANESH, B STAN OPTOMETRIC TECH Unavailable Unavailable GANESH, B STAN OPTOMETRIC TECH Unavailable Unavailable GANESH, B STAN OPTOMETRIC TECH Unavailable Unavailable GANESH, B STAN OPTOMETRIC TECH Unavailable Unavailable GANESH, B STAN OPTOMETRIC TECH Unavailable Unavailable GANESH, B STAN OPTOMETRIC TECH Unavailable Unavailable GANESH, B STAN OPTOMETRIC TECH Unavailable Unavailable GANESH, B STAN OPTOMETRIC TECH Unavailable Unavailable GANESH, B STAN OPTOMETRIC TECH Unavailable Unavailable GANESH, B STAN OPTOMETRIC TECH Unavailable Unavailable GANESH, B STAN OPTOMETRIC TECH Unavailable Unavailable MUHA, M FRANCISCO ANALYTICS DIRECTOR Unavailable Unavailable MUHA, M FRANCISCO ANALYTICS DIRECTOR Unavailable Unavailable MUHA, M FRANCISCO ANALYTICS DIRECTOR Unavailable Unavailable MUHA, M FRANCISCO ANALYTICS DIRECTOR Unavailable Unavailable MUHA, M FRANCISCO ANALYTICS DIRECTOR Unavailable Unavailable MUHA, M FRANCISCO ANALYTICS DIRECTOR Unavailable Unavailable MUHA, M FRANCISCO ANALYTICS DIRECTOR Unavailable Unavailable MUHA, M FRANCISCO ANALYTICS DIRECTOR Unavailable Unavailable MUHA, M FRANCISCO ANALYTICS DIRECTOR Unavailable Unavailable MUHA, M FRANCISCO ANALYTICS DIRECTOR Unavailable Unavailable MUHA, M FRANCISCO ANALYTICS DIRECTOR Unavailable Unavailable MUHA, M FRANCISCO ANALYTICS DIRECTOR Unavailable Unavailable MUHA, M FRANCISCO ANALYTICS DIRECTOR Unavailable Unavailable MUHA, M FRANCISCO ANALYTICS DIRECTOR Unavailable Unavailable MUHA, M FRANCISCO ANALYTICS DIRECTOR Unavailable Unavailable MUHA, M FRANCISCO ANALYTICS DIRECTOR Unavailable Unavailable MUHA, M FRANCISCO ANALYTICS DIRECTOR Unavailable Unavailable MUHA, M FRANCISCO ANALYTICS DIRECTOR Unavailable Unavailable MUHA, M FRANCISCO ANALYTICS DIRECTOR Unavailable Unavailable MUHA, M FRANCISCO ANALYTICS DIRECTOR Unavailable Unavailable MUHA, M FRANCISCO ANALYTICS DIRECTOR Unavailable Unavailable MUHA, M FRANCISCO ANALYTICS DIRECTOR Unavailable Unavailable MUHA, M FRANCISCO ANALYTICS DIRECTOR Unavailable Unavailable MUHA, M FRANCISCO ANALYTICS DIRECTOR Unavailable Unavailable MUHA, M FRANCISCO ANALYTICS DIRECTOR Unavailable Unavailable MUHA, M FRANCISCO ANALYTICS DIRECTOR Unavailable Unavailable MUHA, M FRANCISCO ANALYTICS DIRECTOR Unavailable Unavailable MUHA, M FRANCISCO ANALYTICS DIRECTOR Unavailable Unavailable MUHA, M FRANCISCO ANALYTICS DIRECTOR Unavailable Unavailable MUHA, M FRANCISCO ANALYTICS DIRECTOR Unavailable Unavailable MUHA, M FRANCISCO ANALYTICS DIRECTOR Unavailable Unavailable MUHA, M FRANCISCO ANALYTICS DIRECTOR Unavailable Unavailable MUHA, M FRANCISCO ANALYTICS DIRECTOR Unavailable Unavailable MUHA, M FRANCISCO ANALYTICS DIRECTOR Unavailable Unavailable MUHA, M FRANCISCO ANALYTICS DIRECTOR Unavailable Unavailable MUHA, M FRANCISCO ANALYTICS DIRECTOR Unavailable Unavailable MUHA, M FRANCISCO ANALYTICS DIRECTOR Unavailable Unavailable MUHA, M FRANCISCO ANALYTICS DIRECTOR Unavailable Unavailable MUHA, M FRANCISCO ANALYTICS DIRECTOR Unavailable Unavailable MUHA, M FRANCISCO ANALYTICS DIRECTOR Unavailable Unavailable MUHA, M FRANCISCO ANALYTICS DIRECTOR Unavailable Unavailable MUHA, M FRANCISCO ANALYTICS DIRECTOR Unavailable Unavailable MUHA, M FRANCISCO ANALYTICS DIRECTOR Unavailable Unavailable MUHA, M FRANCISCO ANALYTICS DIRECTOR Unavailable Unavailable MUHA, M FRANCISCO ANALYTICS DIRECTOR Unavailable Unavailable MUHA, M FRANCISCO ANALYTICS DIRECTOR Unavailable Unavailable MUHA, M FRANCISCO ANALYTICS DIRECTOR Unavailable Unavailable MUHA, M FRANCISCO ANALYTICS DIRECTOR Unavailable Unavailable MUHA, M FRANCISCO ANALYTICS DIRECTOR Unavailable Unavailable MUHA, M FRANCISCO ANALYTICS DIRECTOR Unavailable Unavailable MUHA, M FRANCISCO ANALYTICS DIRECTOR Unavailable Unavailable MUHA, M FRANCISCO ANALYTICS DIRECTOR Unavailable Unavailable MUHA, M FRANCISCO ANALYTICS DIRECTOR Unavailable Unavailable MUHA, M FRANCISCO ANALYTICS DIRECTOR Unavailable Unavailable Roxanne, E Rosalie MD Unavailable [...] Unavailable Roxanne, E Rosalie MD Unavailable Unavailable Roxnane, E Rosalie MD Unavailable Unavailable Roxanne, E [...] Unavailable Fish, B Henny MACEDO Unavailable Unavailable Chris M Christopher PA-C Unavailable [...] Unavailable Chris M Christopher PA-C Unavailable Unavailable Perez M Christopher PA-C Unavailable Unavailable Chris M Christopher PA-C Unavailable Unavailable Perez, Nica Juan Davider PA-C Unavailable Unavailable Perez, M Juan Davider PA-C Unavailable Unavailable Perez, M Juan Davider PA-C Unavailable Unavailable Perez, M [...] is protected by Article 27-F of the [facility] Public Health law. If you continue you may have access to information: Regarding HIV / AIDS; Provided by facilities licensed or operated by the [facility] Office of Mental Health; or Provided by the [facility] Office for People With Developmental Disabilities. If such information is present, then the following [facility] mandated warning applies: This information has been [...] law may result in a fine or usp sentence or both. A general authorization for the release of medical or other information is NOT sufficient authorization for further disc losure. Allergies and Adverse Reactions Type Description Substance Reaction Status Data Source(s ) Allergy to substance No Known Allergies No known allergies (situation ) [place] ([facility]) Allergy to substance No Known Allergies No known allergies (situation ) Counts include 234 beds at the [facility]) Family History Family Member Name Family Member Gender Family Member Status Date o f Status Description Data Source(s) Unknown Unknown Problem [facility] ([facility]) mother Encounters Encounter Providers Location Date Indications Data Source(s ) Attender: Michael Marquis 05/08/2021 08:21:08 PM EDT [facility] Attender: Michael Marquis 04/22/2021 08:21:08 PM EDT [facility] Outpatient Attender: Irwin Perez PA-C 04/20/2021 04:09:29 PM EDT - 04/20/2021 04:44:17 PM EDT [facility] Attender: Michael Marquis 04/19/2021 08:21:07 PM EDT [facility] Attender: Michael Marquis 04/19/2021 08:21:07 PM EDT [facility] Attender: Michael Marquis 04/15/2021 08:21:07 PM EDT [facility] Outpatient<td ID="encounterTypeDescripti onID0">followup</td><td>Lucien Rascon</td><td>[facility]</td><td>01/12/2021</td><td>8:56AM</td><td>10:14AM</td><td><content ID="encounterDiagnosisID0-0">Gastroparesis</content>, <content ID="encounterDiagnosisID0-1">Essential Hypertension</content>, <content ID="encounterDiagnosisID0-2">Tendonitis</content></td> Attender: Lucien CAMPBELL [facility] 01/12/2021 08:56:00 AM EDT - 01/12/2021 10:14:29 AM EDT TendonitisGastroparesisEssential Hypertension Counts include 234 beds at the [facility]) Tendonitis Gastroparesis Essential Hypertension <td ID="encounterTypeDescriptionID2">[Pa tient Encounter]</td><td>Francisco Lima ANALYTICS DIRECTOR-BC</td><td></td><td>10/21/2020</td><td>10/01/2020 2:55PM</td><td>10/01/2020 11:59PM</td><td></td>Outpatient Attender: FRANCISCO LIMA VERA 0 10/01/2020 02:55:00 PM EST - 10/01/2020 11:59:00 PM [facility]) <td ID="encounterTypeDescriptionID1">[Pa tient Encounter]</td><td>Francisco Lima ANALYTICS DIRECTOR-BC</td><td></td><td>10/29/2020</td><td>10/01/2020 11:49AM</td><td>10/01/2020 11:59PM</td><td></td>Outpatient Attender: FRANCISCO LIMA ANALYTICS DIRECTOR 0 10/01/2020 11:49:00 AM EST - 10/01/2020 11:59:00 PM [facility]) Outpatient<td ID="encounterTypeDescripti onID3">[Patient Encounter]</td><td>Francisco Lima ANALYTICS DIRECTOR- BC</td><td></td><td>10/03/2020</td><td>10/01/2020 10:53AM</td><td>10/01/2020 11:59PM</td><td></td> Attender: FRANCISCO JANIE GAMEZ 10/01/2020 10:53:00 AM EST - 10/01/2020 11:59:00 PM EST Counts include 234 beds at the [facility]) Outpatient<td ID="encounterTypeDescripti onID6">followup</td><td>Francisco Yousif Janie SOTO</td><td>[facility]</td><td>10/01/2020</td><td>8:58AM</td><td>10:06AM</td><td><content ID="encounterDiagnosisID6-0">Essential Hypertension</content>, <content ID="encounterDiagnosisID6-1">Hyperlipidemia</content>, <content ID="encounterDiagnosisID6-2">Osteoarthritis Localized Wrist Left</content>, <content ID="encounterDiagnosisID6-3">Nicotine-related Disorders</content>, <content ID="encounterDiagnosisID6-4">Ganglion Left Wrist</content></td> Attender: FRANCISCO GAMEZ [facility] 10/01/2020 08:58:00 AM EST - 10/01/2020 10:06:00 AM EST Ganglion Left WristOsteoarthritis Locali zed Wrist LeftNicotine-related DisordersHyperlipidemiaEssential Hypertension [place] ([facility]) Ganglion Left Wrist Osteoarthritis Localized Wrist Left Nicotine-related Disorders Hyperlipidemia Essential Hypertension <td ID="encounterTypeDescriptionID5">[place] [facility] PE-followup exam/</td><td>Francisco Yousif Janie THOMPSON</td><td>[facility]</td><td>10/01/2020</td><td>8:58AM</td><td>10:06AM</td><td><content ID="encounterDiagnosisID5-0">Routine History and Physical Adult (18 - 64 Yrs)</content></td>Outpatient Attender: FRANCISCO GAMEZ [facility], [facility] 10/01/2020 08:58:00 AM EST - 10/01/2020 10:06:00 AM ES T Routine History and Physical Adult (18 - 64 Yrs) [place] ([facility]) Routine History and Physical Adult (18 - 64 Yrs) Outpatient<td ID="encounterTypeDescripti onID4"> Annual Wellness SUBSEQUENT visi t(> 1yr since prev.</td><td>Francisco Yousif Janie THOMPSON</td><td[facility]</td><td>10/01/2020</td><td> 8:57AM</td><td>10:06AM</td><td><content ID="encounterDiagnosisID4-0">Nicotine Dependence</content>, <content ID="encounterDiagnosisID4-1">Routine History and Physical Adult (18 - 64 Yrs)</content></td> Attender: FRANCISCO GAMEZ [facility], [facility] 10/01/2020 08:57:00 AM EST - 10/01/2020 10:06:00 AM ES T Routine History and Physical Adult (18 - 64 Yrs)Nicotine Dependence [place] ([facility]) Routine History and Physical Adult (18 - 64 Yrs) Nicotine Dependence Outpatient Attender: MALLY MERRITT MD 09/29/2020 0 8:00:00 AM EST PT HAS ORDERS [facility] PT HAS ORDERS Outpatient Attender: KAIN CAMPBELL Main Office 08/31/2020 0 9:15:00 AM SHERIF MEYERS ([facility]) Outpatient<td ID="encounterTypeDescripti onID7">telephone conversation</td><td>Francisco Nica Janie THOMPSON</td><td>[facility]</td><td>07/18/2020</td><td>1:28PM</td><td>2:37PM</td><td><content ID="encounterDiagnosisID7-0">Sinusitis Acute</content></td> [facility] 01:[facility]00 P M EDT - 07/18/2020 02:37:17 PM EDT Sinusitis AcuteSinusitis Acute [place] ([facility]) Sinusitis Acute Sinusitis Acute <td ID="encounterTypeDescriptionID8">Tel ehealth communication</td><td>Rosalie Oliveira MD</td><td>[facility], [facility]</td><td>06/08/2020</td><td>2:22PM</td><td>2:48PM</td><td><content ID="encounterDiagnosisID8-0">Post-artificial Menopause State Symptomatic</content>, <content ID="encounterDiagnosisID8-1">Abnormal Weight Loss</content></td>Outpatient Attender: Rosalie Oliveira MD [facility], [facility] 06/08/2020 02:22:00 PM EDT - 06/08/2020 02:48:00 PM ED T Abnormal Weight LossAbnormal Weight LossAbnormal Weight LossPost-artificial Menopause State SymptomaticPost-artificial Menopause State SymptomaticPost-artificial Menopause State Symptomatic [place] ([facility]) Abnormal Weight Loss Abnormal Weight Loss Abnormal Weight Loss Post-artificial Menopause State Symptoma tic Post-artificial Menopause State Symptoma tic Post-artificial Menopause State Symptoma tic Outpatient Attender: STAN ANDERSEN NP Physical Therapy 11:00:00 AM EDT [facility] ([facility]) Outpatient Attender: Henny Griggs MD Physical Therapy 05/22 10:30:00 AM EDT [facility] ([facility]) Immunizations Vaccine Date Status Description Data Source(s) COVID-19 VACCINE Moderna 02/16/2021 12:00:00 AM EDT completed [facility] Vaccine Series Complete: YESThis Data wa s Submitted to [facility] Via [facility]. COVID-19 VACCINE Moderna 01/15/2021 12:00:00 AM EDT completed [facility] Vaccine Series Complete: NOThis Data was Submitted to [facility] Via [employer]. Shingrix 09/21/2020 01:47:00 PM EST completed <td ID="Ifxoymmczlxib-Fmvowwrfaxl-SX8">Shingrix</td><td ID="ImmunizationDose- 2">2</td><td>09/21/2020</td><td ID="Cgachvlpoxtvs-OvfmiFprm-QB7"></td><td></td> <td ID="Naadajkdlndsg-Fbwvhg-HK1">Complete (Reported)</td><td>Patient</td><td ID="Zovancbaiohch-Mwxua-Cfqw-Comment-ID2"></td> Counts include 234 beds at the [facility]) Shingrix 05/29/2020 10:09:00 AM EDT completed <td ID="Bxzcyxwznlsqx-Rjimjdemzpy-UM7">Shingrix</td><td ID="ImmunizationDose- 1">1</td><td>05/29/2020</td><td ID="Vrbpnmgsxqvib-NyhuwUonl-TJ3"></td><td></td> <td ID="Nwgdkvbljtyrk-Kvbyxj-VY4">Complete (Reported)</td><td>Patient</td><td ID="Yyjxbkbdewyvl-Jtscg-Wcwg-Comment-ID1"></td> Counts include 234 beds at the [facility]) IIV3. This is one of two codes replacing CVX 15, which is being retired. 05/29/2020 10:09:00 AM EDT completed <td ID="Sdegrefukiafl-Tlwmtddzqao-FA6">Influenza, seasonal, injectable</td><td ID="ImmunizationDose-0">1</td><td>05/29/2020</td><td ID="Fnpxuyewnvgvi-RfgueChlb-DA9"></td><td></td><td ID="Iawvzwzfskced-Ipotei-UT6">Complete (Reported)</td><td>Patient</td><td ID="Bdgtswkgwyppq-Cyzno-Cuys-Comment-ID0"></td> Counts include 234 beds at the [facility]) Medications Medication Brand Name Start Date Product [...] PUFF BY MOUTH ONCE DAILY SOLD: 07/12/2021 [facility] 62.5 mcg/actuation 06/11/2021 12:00:00 AM EDT [...] EVERY DAY FOR 7 DAYS SOLD: 04/20/2021 [facility] 5 mg 04/02/2021 12:00:00 AM [...] AND THEN TAPER OFF SOLD: 07/08/2021 [facility] pantoprazole 40 MG Delayed Release Oral Tablet [...] TABLET BY MOUTH EVERY DAY SOLD: 02/13/2021 [facility] Amlodipine 2.5 MG Oral Tablet Amlodipine Besylate 02/11/2021 12:00: 00 AM EDT ORAL active [facility] ([facility]) 2.5 mg 02/11/2021 12:00:00 AM EDT tablet 90 TAKE ONE TABLET BY MOUTH EVERY DAY TAKE ONE TABLET BY MOUTH EVERY DAY SOLD: 05/20/2021 [facility] Amlodipine 2.5 MG Oral Tablet AMLODIPINE BESYLATE 01/12/2021 12: 00:00 AM EDT tablet 30 TAKE ONE TABLET BY MOUTH EVERY D AY TAKE ONE TABLET BY MOUTH EVERY DAY SOLD: 01/12/2021 [facility] Amlodipine 2.5 MG Oral Tablet amLODIPine Besylate 2.5 MG Oral Tablet amLODIPine Besylate 2.5 MG Oral Tablet 01/12/2021 12:00:00 AM EDT active amlodipine 2.5 MG Oral Tablet [place] ([facility]) Metoclopramide 5 MG Oral Tablet Metoclopramide HCl 5 M G Oral Tablet Metoclopramide HCl 5 MG Oral Tablet 01/12/2021 12:00:00 AM EDT active metoclopramide 5 MG Oral Tablet [facility] 5 mg 01/12/2021 12:00:00 AM EDT tablet [...] 1 active simvastatin 20 MG Oral Tablet Counts include 234 beds at the [facility]) Amlodipine 5 MG Oral Tablet amLODIPine Besylate 5 MG O ral Tablet amLODIPine Besylate 5 MG Oral Tablet 10/01/2020 12:00:00 AM EST 1 aborted amlodipine 5 MG Oral Tablet Counts include 234 beds at the [facility]) Cyclobenzaprine hydrochloride 10 MG Oral Tablet CYCLOBENZAPR [...] ORAL completed [facility] ([facility] Docusate Sodium 50 MG / sennosides, HALFWAY 8.6 MG Oral Tablet S mayra-S 08/30/2020 12:00:00 AM EST ORAL active M [facility] ([facility]) Docusate Sodium 100 MG Oral Capsule Stool Softener 08/30/2020 12:00 :00 AM EST ORAL active [facility] ([facility] Trazodone Hydrochloride 150 MG Oral Tablet Trazodone HCL 08/30/2020 12:00:00 AM EST ORAL active [facility] ([facility]) Centrum Silver 50+Women 08/30/2020 12:00:00 AM EST ORAL active [facility] ([facility]) pantoprazole 40 MG Delayed Release Oral Tablet Pantoprazole Sodium 08/30/2020 12:00:00 AM EST ORAL active M [facility] ([facility]) 7 ACTUAT umeclidinium 0.0625 MG/ACTUAT Dry Powder Inha ler [Incruse] Incruse Ellipta 08/30/2020 12:00:00 AM EST RESPIRATORY active [facility] ([facility]) Cyclobenzaprine hydrochloride 10 MG Oral Tablet Cyclobenzaprine HCl 10 MG Oral Tablet Cyclobenzaprine HCl 10 MG Oral Tablet 08/13/2020 12:00:00 AM EST 1 active cyclobenzaprine hydrochlorid e 10 MG Oral Tablet [facility] ([facility]) 150 mg 08/08/2020 12:00:00 AM EST tablet 90 TAKE ONE TABLET BY MOUTH AT BEDTIME TAKE ONE TABLET BY MOUTH AT BEDTIME SOLD: 11/17/2020 [facility] 150 mg 08/08/2020 12:00:00 AM EST tablet 90 TAKE ONE TABLET BY MOUTH AT BEDTIME TAKE ONE TABLET BY MOUTH AT BEDTIME SOLD: 08/22/2020 [facility] Trazodone Hydrochloride 150 MG Oral Tablet traZODone H Cl 150 MG Oral Tablet traZODone HCl 150 MG Oral Tablet 08/06/2020 12:00:00 AM EST active trazodone hydrochloride 150 MG Oral Tablet [place] ([facility]) Simvastatin 20 MG Oral Tablet Simvastatin 20 MG Oral Tablet 07/25/2020 12:00:00 AM EST 1 aborted simvastatin 20 M G Oral Tablet [place] [facility] 20 mg 07/19/2020 12:00:00 AM EDT tablet 90 TAKE ONE TABLET BY MOUTH EVERY DAY TAKE ONE TABLET BY MOUTH EVERY DAY SOLD: 07/24/2020 [facility] 875-125 mg 07/18/2020 12:00:00 AM EDT tablet 20 TAKE ONE TABLET BY MOUTH TWICE A DAY TAKE ONE TABLET BY MOUTH TWICE A DAY SOLD: 07/18/2020 [facility] Amoxicillin 875 MG / Clavulanate 125 MG Oral Tablet Amoxicillin-Pot Clavulanate 875-125 MG Oral Tablet Amoxicillin-Pot Clavulanate 875-125 MG Oral Tablet 07/18/2020 12:00:00 AM EDT completed amoxicillin 875 MG / clavulanate 125 MG Oral Tablet [place] [facility] pantoprazole 40 MG Delayed Release Oral Tablet PANTOPRAZOLE SODIUM 06/26/2020 12:00:00 AM EDT tablet,delayed release (DR/EC) 90 T RICHARD ONE TABLET BY MOUTH EVERY MORNING 30 MINUTES BEFORE BREAKFAST. COMPLETE A TOTAL OF 3 MONTHS COURSE THEN TAPER OFF TAKE ONE TABLET BY MOUTH EVERY MORNING 3 0 MINUTES BEFORE BREAKFAST. COMPLETE A TOTAL OF 3 MONTHS COURSE THEN TAPER OFF SOLD: 09/18/2020 [facility] pantoprazole 40 MG Delayed Release Oral [...] MONTHS COURSE THEN TAPER OFF SOLD: 06/26/2020 [facility] 0.45 mg 06/09/2020 12:00:00 AM [...] DAY SOLD: 09/18/2020 [facility] Estrogens, Conjugated (HALFWAY) 0.45 MG Oral Tablet [Premarin] Premarin 0.45 MG Oral Tablet Premarin 0.45 MG Oral Tablet 06/08/2020 12:00:00 AM EDT active estrogens, conjugated (HALFWAY) 0.45 MG Oral Tablet [Premarin] [place] ([facility]) 62.5 mcg/actuation 05/30/2020 12:00:00 AM EDT blister [...] PUFF BY MOUTH ONCE DAILY SOLD: 09/28/2020 [facility] pantoprazole 40 MG Delayed Release Oral Tablet PANTOPRAZOLE SODIUM 04/19/2020 12:00:00 AM EDT tablet,delayed release (DR/EC) 90 T RICHARD ONE TABLET BY MOUTH EVERY MORNING 1/2 HOUR BEFORE BREAKFAST, COMPLETE 3 MONTH COURSE AND THEN TAPER OFF TAKE ONE TABLET BY MOUTH EVERY MORNING 1 /2 HOUR BEFORE BREAKFAST, COMPLETE 3 MONTH COURSE AND THEN TAPER OFF SOLD: 12/06/2020 [facility] 4 mg 03/27/2020 12:00:00 AM EDT [...] TABLET BY MOUTH EVERY DAY SOLD: 11/17/2020 [facility] 10 mg 03/06/2020 12:00:00 AM EDT tablet 90 TAKE ONE TABLET BY MOUTH EVERY DAY TAKE ONE TABLET BY MOUTH EVERY DAY SOLD: 05/27/2020 [facility] Amlodipine 10 MG Oral Tablet amLODIPine Besylate 10 MG Oral Tablet amLODIPine Besylate 10 MG Oral Tablet 03/06/2020 12:00:00 AM EDT 1 aborted amlodipine 10 MG Oral Tablet [facility] 10 mg 03/06/2020 12:00:00 AM EDT tablet 90 TAKE ONE TABLET BY MOUTH EVERY DAY TAKE ONE TABLET BY MOUTH EVERY DAY SOLD: 08/22/2020 [facility] Estrogens, Conjugated (HALFWAY) 0.45 MG Oral Tablet [Premarin] Premarin 0.45 MG Oral Tablet Premarin 0.45 MG Oral Tablet 03/05/2020 12:00:00 AM EDT aborted estrogens, conjugated (HALFWAY) 0.45 MG Oral Tablet [Premarin] [facility]) 150 mg 02/20/2020 12:00:00 AM EDT tablet 75 TAKE ONE TABLET BY MOUTH AT BEDTIME TAKE ONE TABLET BY MOUTH AT BEDTIME SOLD: 05/27/2020 [facility] Cyclobenzaprine hydrochloride 10 MG Oral Tablet CYCLOBENZAPR INE HCL 11/11/2019 12:00:00 AM EST tablet 90 TAKE ONE TABLET BY MOUTH EVERY DAY TAKE ONE TABLET BY MOUTH EVERY DAY SOLD: 07/18/2020 [facility] Trazodone Hydrochloride 150 MG Oral Tablet traZODone H Cl 150 MG Oral Tablet traZODone HCl 150 MG Oral Tablet 11/11/2019 12:00:00 AM EST aborted trazodone hydrochloride 150 MG Oral Tablet [place] ([facility]) Cyclobenzaprine hydrochloride 10 MG Oral Tablet Cyclobenzaprine HCl 10 MG Oral Tablet Cyclobenzaprine HCl 10 MG Oral Tablet 09/22/2019 12:00:00 AM EST 1 aborted cyclobenzaprine hydrochlorid e 10 MG Oral Tablet [place] ([facility]) Insurance Providers Payer name Policy type / Coverage type Policy ID Covered constitution party ID Covered constitution party's relationship to blake Policy Blake Plan Information BLUE CHOICE OPTIONS 7 [id number] EXCELL H [id number] Self [id number] MEDICARE [id number] SP [id number] A [place]ID [place] [id number] SP AQ [id number] Dual Complete Commercial [id number] Self [id number] Dual Complete Commercial [id number] Self [id number] UnitedHealthcare Other 0 [id number] Self 0 UnitedHealthcare Other NYCARE [id number] Self [facility] ARE MEDICAID [id number] SP [id number] UNITED HEALTHC[facility] [id number] SP [id number] UnitedHealthcare Other NYCARE [id number] Self [facility] ARE MEDICARE COMPLETE [id number] SP [id number] UnitedHealthcare Other NYCARE [id number] Self [facility] ARE UnitedHealthcare Other NYCARE [id number] Self [facility] ARE UnitedHealthcare Other 0 [id number] Self 0 UnitedHealthcare Other 0 [id number] Self 0 UnitedHealthcare Other 0 [id number] Self 0 UnitedHealthcare Other 0 [id number] Self 0 UNITED HEALTHCARE MCRO [id number] SP [id number] Needs Workers Comp Information WorkComp Health Claim [id number] Self [id number] Workers Comp I- FA WorkComp Health Claim [id number] Employee [id number] [facility] [id number] SP [id number] MEDICARE COMPLETE [id number] SP [id number] UnitedHealthcare Other 0 [id number] Self 0 UnitedHealthcare Other 0 [id number] Self 0 [facility] Other 0 [id number] Self 0 [facility] Other 0 [id number] Self 0 Medicaid Medigap Part B [id number] Self [id number] [facility] Dual Cov Plan Commercial [id number] Self [id number] [facility] Other 0 [id number] Self 0 [facility] Other 0 [id number] Self 0 Medicaid Medigap Part B [id number] [id number] Self [id number] Medicaid [facility] Other 0 [id number] Self 0 Medicare Part B of [facility] Other 0 [id number] S elf 0 [place] Other 0 [id number] Self 0 Medicare Part B of [facility] Other 0 [id number] S elf 0 MEDICARE [id number] SP [id number] A [place] Other 0 [id number] Self 0 Medicare Part B of [facility] Other 0 [id number] S elf 0 [place] Other 0 [id number] Self 0 Medicare Part B of [facility] Other 0 [id number] S elf 0 [place] Med[place] Part B [id number] Self [id number] Medicare Natl Gov't Servi Medicare Primary [id number] Self [id number] [place] Other 0 [id number] Self 0 Medicare Part B of [facility] Other 0 [id number] S elf 0 [place] Other 0 [id number] Self 0 Medicare [place] of [place] [facility] [place] Other 0 [id number] S elf 0 [place] Other 0 [id number] Self 0 Medicare [place] B of [place] [facility] [place] Other 0 [id number] S elf 0 [place] Other 0 [id number] Self 0 Medicare [place] of [place] [facility] [place] Other 0 [id number] S elf 0 [place] Other 0 [id number] Self 0 Medicare [place] of [place] [facility] [place] Other 0 [id number] S elf 0 [place] Other 0 [id number] Self 0 Medicare Part B of [facility] Other 0 [id number] S elf 0 [place] Other 0 [id number] Self 0 Medicare Part B of [facility] Other 0 [id number] S elf 0 MEDICAID W [id number] BLUE CHOICE OPTION O [id number] S [id number] MEDICAID 3 [id number] SELFPAY 5 UNAVAILABLE 1 [place] BLE [place] [id number] SP [id number] P SELF PAY 5 UNAVAILABLE 1 UNAVAILA BLE [place] Other 0 [id number] Self 0 [facility] MCRHMO [id number] SP [id number] [place] [id number] SP [id number] MEDICAID M [id number] S [id number] [facility](MCAID) O [id number] S [id number] [place] Other 0 [id number] Self 0 [place] Other 0 [id number] Self 0 [place] Other 0 [id number] Self 0 MEDICAID [id number] SP [id number] [place] Other 0 [id number] Self 0 [place] Other 0 [id number] Self 0 [place] Other 0 [id number] Self 0 [place] Other 0 [id number] Self 0 [facility] [place] Med[place] Part B [id number] Self [id number] [place] Other 0 [id number] Self 0 [place] Other 0 [id number] Self 0 [facility] Other 0 [id number] Self 0 [facility] Health Maintenance Organization (HMO) [id number] Self [id number] Medicaid [place] Medigap Part B [id number] Self [id number] Problems, Conditions, and Diagnoses Code Display Name Description Problem Type Effective Dates Data Source(s) 536.3 Gastroparesis Gastroparesis Problem 10/03/2020 10:54:00 AM [facility] Surgeries/Procedures Procedure Description Date Indications Data Source(s) Annual wellness visit, includes a person alized prevention plan of service (pps), subsequent visit - subseq't annual wellness exam(1 yr after Initial) 10/01/2020 12:00:00 AM [facility] [place] ([facility]) Annual depression screening, 15 minutes -Annual depr ession screening- 15 min. (Distinct Seperate service-same day) 10/01/2020 12:00:00 AM [facility] [place] ([facility]) ECG ROUTINE ECG W/LEAST 12 LDS W/I&R 08/31/2020 12:00: 00 AM EST [facility] Fine Needle Aspiration Biopsy Inlcd Ultrasound Guidance 05/22/2020 12:00:00 AM EDT [facility] ([facility]) Echography Soft Tissue Hand & Neck 05/22/2020 12:00:00 AM EDT [facility]) Results ID Date Data Source [id number] 12/19/2020 01:04:00 PM EDT [facility] ([facility]) Name Value Range Interpretation Code Description Data Lucita rce(s) Supporting Document(s) Alanine aminotransferase [Enzymatic activity/volume] in Serum or Pl asma 14 [facility] ([facility]) Calcium [Mass/volume] in Serum or Plasma 9.5 [facility] ([facility]) Albumin [Mass/volume] in Serum or Plasma 1.2 [facility] ([facility]) Chloride [Moles/volume] in Serum or Plasma 108 [facility] ([facility]) Carbon dioxide, total [Moles/volume] in Serum or Plasma 27 [facility] ([facility]) Potassium [Moles/volume] in Serum or Plasma 3.6 [facility] ([facility]) Protein [Mass/volume] in Serum or Plasma 7.6 [facility] ([facility]) Alkaline phosphatase [Enzymatic activity/volume] in Serum or Plasma 8 7 [facility] ([facility]) Sodium 140 [facility] Aspartate aminotransferase [Enzymatic activity/volume] in Serum or Plasma 8 [facility] ([facility]) Glucose 112 70-100 [facility] Urea nitrogen [Mass/volume] in Serum or Plasma 14 [facility] ([facility]) Creatinine For GFR 0.90 [facility] ([facility]) ID Date Data Source [id number] 12/19/2020 01:04:00 PM EDT [facility] ([facility] Name Value Range Interpretation Code Description Data Lucita rce(s) Supporting Document(s) White Blood Count 10.3 4.0-10.0 [facility] ([facility]) Red Blood Count 4.79 4.00-5.40 [facility] ([facility]) Platelets 367 150-450 [facility] Hematocrit 42.9 36.0-47.0 [facility] ([facility]) Hemoglobin 14.4 12.0-15.5 [facility] ([facility]) ID Date Data Source [id number] 09/29/2020 08:14:00 AM EST [facility] Name Value Range Interpretation Code Description Data Lucita rce(s) Supporting Document(s) Leukocytes [#/volume] in Blood by Automated count 10.2 10*3/uL 4.45-1 0.71 N [facility] Erythrocytes [#/volume] in Blood by Automated count 4.54 10*6/uL 4.20 -5.40 N [facility] Hemoglobin [Moles/volume] in Blood 13.8 g/dL 10.7-15.4 N [facility] Hematocrit [Volume Fraction] of Blood by Automated count 41.8 % 3 7-47 N [facility] Erythrocyte mean corpuscular volume [Ent itic volume] in Cord blood by Automated count 92.1 fL 80-96 N [facility] ital Erythrocyte mean corpuscular hemoglobin [Entitic mass] by Automated count 30.4 pg 27-31 [facility] Erythrocyte mean corpuscular hemoglobin concentration [Mass/volume] in Cord blood 33.0 g/dL 33-37 N [facility] ital Erythrocyte distribution width [Entitic volume] by Automated count 13 % 11-15 N [facility] Platelets [#/volume] in Blood by Automated count 346 10*3/uL 130-472 N [facility] Platelet mean volume [Entitic volume] in Blood 8.2 fL 9.1-13. 1 Below low normal [facility] Neutrophils/100 leukocytes in Blood by Automated count 48.6 % 41- 77 N [facility] Neutrophils [#/volume] in Blood by Automated count 5.0 U 1.7-7.6 N [facility] Lymphocytes/100 leukocytes in Blood by Automated count 41.2 % 14- 46 N [facility] Lymphocytes [#/volume] in Blood by Automated count 4.2 U 0.6-4.6 N [facility] Monocytes/100 leukocytes in Blood by Automated count 6.8 % 4-12 N [facility] Monocytes [#/volume] in Blood by Automated count 0.7 U 0.2-1.2 N [facility] Eosinophils/100 leukocytes in Blood by Automated count 2.6 % 0-7 N [facility] Eosinophils [#/volume] in Blood by Automated count 0.3 U 0.0-0.5 N [facility] Basophils/100 leukocytes in Blood by Automated count 0.6 % 0.4-1 .3 N [facility] Basophils [#/volume] in Blood by Automated count 0.1 U 0.0-0.2 N [facility] NUCLEATED RED BLOOD CELL 0 % [facility] NUCLEATED RED BLOOD CELL# 0 U [facility] Immature granulocytes [Presence] in Blood by Automated count 0-2 N [facility] Immature granulocytes [#/volume] in Blood by Automated count 0.0 U 0-0.1 N [facility] Manual Differential panel - Blood NO [facility] ID Date Data Source [id number] 09/29/2020 09:07:00 AM EST [facility] Name Value Range Interpretation Code Description Data Lucita rce(s) Supporting Document(s) Urea nitrogen [Mass/volume] in Serum or Plasma 12 mg/dL 9-23 N [facility] Sodium [Moles/volume] in Serum or Plasma 142 mmol/L 132-146 [facility] Potassium [Moles/volume] in Serum or Plasma 4.2 mmol/L 3.5-5.5 [facility] Chloride [Moles/volume] in Serum or Plasma 107 mmol/L 99-109 [facility] Carbon dioxide, total [Moles/volume] in Serum or Plasma 32 mmol/ L 20-31 Above high normal [facility] Anion gap in Serum or Plasma 7 mmol/L 8-16 Below low normal [facility] Glucose [Mass/volume] in Serum or Plasma 99 mg/dL 74-106 N [facility] Creatinine 0.9 mg/dL 0.5-1.1 [facility] Glomerular filtration rate/1.73 sq M.pre dicted [Volume Rate/Area] in Serum or Plasma Greater Than 60 ABOVE 60 [facility] Alanine aminotransferase [Enzymatic acti vity/volume] in Serum or Plasma by With P-5'-P 16 U/L 10-49 [facility] ital Aspartate aminotransferase [Enzymatic ac tivity/volume] in Serum or Plasma by With P-5'-P 13 U/L 0-33 [facility] pital Alkaline phosphatase [Enzymatic activity/volume] in Serum or Plasma 83 U/L 45-129 [facility] Calcium [Mass/volume] in Serum or Plasma 9.2 mg/dL 8.5-10.1 [facility] Bilirubin.total [Mass/volume] in Serum or Plasma 0.4 mg/dL 0.3-1.2 [facility] Albumin [Mass/volume] in Serum or Plasma by Bromocresol purple (BCP) dye binding method 3.8 g/dL 3.2-4.8 [facility] ital Protein [Mass/volume] in Serum or Plasma 7.2 g/dL 5.7-8.2 [facility] ID Date Data Source [id number] 09/29/2020 09:07:00 AM EST [facility] Name Value Range Interpretation Code Description Data Lucita rce(s) Supporting Document(s) Triglycerides 119 mg/dL 0-150 [facility] Cholesterol 183 mg/dL 120-200 [facility] HDL Cholesterol 51 mg/dL [facility] HDL Less than 40 mg/dL: Major risk for CHDHDL Greater than 59 mg/dL: Low risk for CHD LDL Cholesterol, Calc 109 mg/dL 0-100 Above high normal [facility] ID Date Data Source [id number] 09/29/2020 08:00:00 AM [facility] ([facility]) Name Value Range Interpretation Code Description Data Lucita rce(s) Supporting Document(s) Reported Physicians See Note Reported Physici [facility] ([facility]) Note: Reported Physicians:Ordering: Lc CANNONding: Breanne MERRITT To: Rosalie Oliveira ID Date Data Source [id number] 09/29/2020 08:00:00 AM [facility] ([facility]) Name Value Range Interpretation Code Description Data Lucita rce(s) Supporting Document(s) Alanine aminotransferase [Enzymatic acti vity/volume] in Serum or Plasma by With P-5'-P 16 enzyme_unit_per_liter Normal ALT SerPl w P-5' -P-cCnc [place] ([facility]) Note: Responsible Observer: SGPT/ALT SGP T/ALT 400.1750 (G) Calcium [Mass/volume] in Serum or Plasma 9.2 MilliGramsPerDeciLiter_[Mass_Concentration_Units] Normal Calcium [facility] ([facility]) Note: Responsible Observer: Calcium Calc ium 400.2500 (G) Bilirubin.total [Mass/volume] in Serum or Plasma 0.4 MilliGramsPerDeciLiter_[Mass_Concentration_Units] Normal Bilirub [facility] ([facility]) Note: Responsible Observer: T TRENT Total Bilirubin 400.2600 (G) Carbon dioxide, total [Moles/volume] in Serum or Plasm a 32 MilliMolesPerLiter_[Substance_Concentration_Units] Above hig h normal CO2 [facility] ([facility]) Note: Responsible Observer: CO2 Carbon D ioxide 400.1400 (G) Chloride [Moles/volume] in Serum or Plasma 107 MilliMolesPerLiter_[Substance_Concentration_Units] Normal Chloride [facility] ([facility]) Note: Responsible Observer: Chloride Chl oride 400.1250 (G) Glucose [Mass/volume] in Serum or Plasma 99 MilliGramsPerDeciLiter_[Mass_Concentration_Units] Normal Glucose [facility] ([facility]) Note: Responsible Observer: Glucose Gluc ose 400.1500 (G) Potassium [Moles/volume] in Serum or Plasma 4.2 MilliMolesPerLiter_[Substance_Concentration_Units] Normal Potassium [facility] ([facility]) Note: Responsible Observer: K Potassium 400.1210 (G) Aspartate aminotransferase [Enzymatic ac tivity/volume] in Serum or Plasma by With P-5'-P 13 enzyme_unit_per_liter Normal AST SerPl w P-5' -[facility] ([facility]) Note: Responsible Observer: SGOT / AST S GOT / AST 400.1900 (G) Urea nitrogen [Mass/volume] in Serum or Plasma 12 MilliGramsPerDeciLiter_[Mass_Concentration_Units] Normal BUN [facility] ([facility]) Note: Responsible Observer: BUN Blood Ur ea Nitrogen 400.1000 (G) Protein [Mass/volume] in Serum or Plasma 7.2 GramsPerDeciLiter_[Mass_Concentration_Units] Normal Pro t [facility] ([facility]) Note: Responsible Observer: TP Total Pro tein 400.2800 (G) Sodium [Moles/volume] in Serum or Plasma 142 MilliMolesPerLiter_[Substance_Concentration_Units] Normal Sodium [facility] ([facility]) Note: Responsible Observer: Sodium Sodiu m 400.1100 (G) Glomerular filtration rate/1.73 sq M.pre dicted [Volume Rate/Area] in Serum or Plasma Greater Than 60 [facility] [place] ([facility]) Note: Responsible Observer: GFR Glomerul ar Filt Rate Calc 400.1605 (D) Alkaline phosphatase [Enzymatic activity/volume] in Se rum or Plasma 83 enzyme_unit_per_liter Normal ALP [facility] ( [facility]) Note: Responsible Observer: ALP Alkaline Phosphatase 400.2000 (G) Anion gap in Serum or Plasma 7 MilliMolesPerLiter_[Substance_Concentration_Units] Below low normal Anion Gap SerPl-sCnc [place] ([facility]) Note: Responsible Observer: ANION GAP AN ION GAP 400.1402 (E) Albumin [Mass/volume] in Serum or Plasma by Bromocresol purple (BCP) dye binding method 3.8 GramsPerDeciLiter_[Mass_Concentration_Units] Normal Albumin SerPl BCP-mCnc [place] ([facility]) Note: Responsible Observer: Albumin [place] min 400.2700 (G) Creatinine [Moles/volume] in Vitreous fluid 0.9 MilliGramsPerDeciLiter_[Mass_Concentration_Units] Normal Creatinine [place] ([facility]) Note: Responsible Observer: Creatinine C reatinine 400.1600 (G) ID Date Data Source [id number] 09/29/2020 08:00:00 AM EST [place] ([facility]) Name Value Range Interpretation Code Description Data Lucita rce(s) Supporting Document(s) Erythrocyte distribution width [Entitic volume] by Automated cou nt 13 percent Normal RDW RBC Auto [place] ([facility]) Note: Responsible Observer: RDW RDW 100 .0900 (B) Erythrocyte mean corpuscular volume [Ent itic volume] in Cord blood by Automated count 92.1 FemtoLiter_[SI_Volume_Units] Normal MCV Bld Co Auto [place] ([facility]) Note: Responsible Observer: MCV MCV 100 .0600 (B) Manual Differential panel - Blood NO Ma nual diff Bld [place] ([facility]) Note: Responsible Observer: CBC Manual D ifferential Added 100.1990 (B) Platelet mean volume [Entitic volume] in Blood 8.2 FemtoLite r_[SI_Volume_Units] Below low normal PMV Bld [place] [facility] Note: Responsible Observer: MPV MPV 100 .1100 (B) Immature granulocytes [Presence] in Blood by Automated count See No te Normal Imm Granulocytes Bld Ql Auto [place] ([facility]) Note: [id number] 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: IG% IG% 100.1375 (B) Erythrocyte mean corpuscular hemoglobin concentration [Mass/volume] in Cord blood 33.0 GramsPerDeciLiter_[Mass_Concentration_Units] Normal MCHC BldCo-mCnc [place] ([facility]) Note: Responsible Observer: MCHC MCHC 1 00.0800 (B) Hematocrit [Volume Fraction] of Blood by Automated count 41.8 perce nt Normal Hct VFr Bld Auto [place] ([facility]) Note: Responsible Observer: HEMATOCRIT H EMATOCRIT 100.0500 (B) Immature granulocytes [#/volume] in Blood by Automated count 0.0 Un it Imm Granulocytes # Bld Auto [place] ([facility]) Note: Responsible Observer: IG# IG# 100 .1400 (B) Monocytes/100 leukocytes in Blood by Automated count 6.8 percent Normal Monocytes/leuk NFr Bld Auto [place] ([facility]) Note: Responsible Observer: MONO % MONO % 100.1225 (B) Hemoglobin [Moles/volume] in Blood 13.8 GramsPerDeciLiter_[Mass_Concentration_Units] Normal Hgb Bld-sCnc [place] ([facility]) Note: Responsible Observer: HGB HEMOGLOB IN 100.0400 (B) Basophils [#/volume] in Blood by Automated count 0.1 Unit Normal Basophils # Bld Auto [place] ([facility]) Note: Responsible Observer: BASO # BASO# 100.1350 (B) Leukocytes [#/volume] in Blood by Automated count 10.2 ThousandsPerMicroLiter_[Number_Concentration_Units] Normal WBC # Bld Auto [place] ([facility]) Note: Responsible Observer: WBC WHITE BL OOD COUNT 100.0100 (E) Basophils/100 leukocytes in Blood by Automated count 0.6 percent Normal Basophils/leuk NFr Bld Auto [place] ([facility]) Note: Responsible Observer: BASO % BASO % 100.1325 (B) Eosinophils [#/volume] in Blood by Automated count 0.3 Unit Normal Eosinophil # Bld Auto [place] ([facility]) Note: Responsible Observer: EOS # EOS# 100.1300 (D) Lymphocytes [#/volume] in Blood by Automated count 4.2 Unit Normal Lymphocytes # Bld Auto [place] ([facility]) Note: Responsible Observer: LYMPH # LYMP H# 100.1200 (B) Eosinophils/100 leukocytes in Blood by Automated count 2.6 percent Normal Eosinophil/leuk NFr Bld Auto [place] ([facility]) Note: Responsible Observer: EOS % EOS % 100.1275 (B) Lymphocytes/100 leukocytes in Blood by Automated count 41.2 percent Normal Lymphocytes/leuk NFr Bld Auto [place] ([facility]) Note: Responsible Observer: LYMPH % LYMP H % 100.1175 (B) Monocytes [#/volume] in Blood by Automated count 0.7 Unit Normal Monocytes # Bld Auto [place] ([facility]) Note: Responsible Observer: MONO # MONO# 100.1250 (C) Neutrophils/100 leukocytes in Blood by Automated count 48.6 percent Normal Neutrophils/leuk NFr Bld Auto [place] ([facility]) Note: Responsible Observer: NEUT% NEUT% 100.1125 (B) Neutrophils [#/volume] in Blood by Automated count 5.0 Unit Normal Neutrophils # Bld Auto [place] ([facility]) Note: Responsible Observer: NEUT# NEUT# 100.1150 (B) Platelets [#/volume] in Blood by Automated count 346 ThousandsPerMicroLiter_[Number_Concentration_Units] Normal Platelet # Bld Auto [place] ([facility]) Note: Responsible Observer: PLATELET COU NT PLATELET COUNT 100.1000 (D) Erythrocyte mean corpuscular hemoglobin [Entitic mass] by Automated count 30.4 PicoGram_[SI_Mass_Units] Normal MCH RBC Qn Auto [place] ([facility]) Note: Responsible Observer: MCH MCH 100 .0700 (B) Erythrocytes [#/volume] in Blood by Automated count 4. 54 MillionsPerMicroLiter_[Number_Concentration_Units] Normal RBC # Bld Auto [place] ([facility]) Note: Responsible Observer: RBC Red Bloo d Count 100.0300 (B) NUCLEATED RED BLOOD CELL# 0 Unit NUCLEATED RED BLOOD CELL# [place] ([facility]) Note: Responsible Observer: NRBC# NUCLEA RICHARD RBC 100.1362 (A) NUCLEATED RED BLOOD CELL 0 percent NUCLEATED R ED BLOOD CELL [place] ([facility]) Note: Responsible Observer: NRBC% NRBC% 100.1360 (B) ID Date Data Source [id number] 09/29/2020 08:00:00 AM EST [place] ([facility]) Name Value Range Interpretation Code Description Data Lucita rce(s) Supporting Document(s) Reported Physicians See Note Reported Physici ans [place] ([facility]) Note: Reported Physicians:Ordering: Lc CANNONding: Breanne MERRITT To: Rosalie Oliveira ID Date Data Source [id number] 09/29/2020 08:00:00 AM EST [place] ([facility]) Name Value Range Interpretation Code Description Data Lucita rce(s) Supporting Document(s) Cholesterol [Moles/volume] in Pericardial fluid 183 MilliGramsPerDeciLiter_[Mass_Concentration_Units] Normal Cholesterol [place] ([facility]) Note: Responsible Observer: Cholesterol Cholesterol 400.3100 (G) HDL Cholesterol 51 MilliGramsPerDeciLiter_[Mass_Concentration_Units ] HDL Cholesterol [place] ([facility]) Note: HDL Less than 40 mg/dL: Major ris k for CHDHDL Greater than 59 mg/dL: Low risk for CHDResponsible Observer: HDL HDL Cholesterol 400.3150 (H) LDL Cholesterol, Calc 109 MilliGramsPerDeciLiter_[Mass_Concentra tion_Units] Above high normal LDL Cholesterol, Calc [place] ([facility]) Note: Responsible Observer: LDL CHOL MARCO C LDL Cholesterol, Calculated 400.3155 (F) Triglycerides 119 MilliGramsPerDeciLiter_[Mass_Concentration_Units] Normal Triglycerides [place] ([facility]) Note: Responsible Observer: Triglyceride s Triglycerides 400.2951 (G) ID Date Data Source [id number] 05/22/2020 05:03:00 AM EDT [facility] ) Name Value Range Interpretation Code Description Data Lucita rce(s) Supporting Document(s) Microscopic observation [Identifier] in Unspecified specimen by Non- gynecological cytology method Laboratory test result [facility] ([facility]) SPECIMEN: FNA Left lower lobe thyroid nodule Specimen received in Cytolyt SPECIMEN ADEQUACY: Unsatisfactory for evaluation Sparse cellularity CATEGORIZATION: DESCRIPTIONS: Specimen consists of few scattered hemosiderin laden macrophages and blood elements only. COMMENTS: Lack of follicular component precludes definitive diagnosis. 05/23/2020 - 08 Signed MARIA M CAMPBELL(ASCP) 05/23/2020 0806 (Prelim) Signed LAILA SALTER MD 05/23/2020 1348 Procedure Social History No Information Vital Signs ID Date Data Source UNK Name Value Range Interpretation Code Description Data Source(s) Body surface area Derived from formula 1.73 m2 1.73 m2 [place] ([facility]) Systolic blood pressure 102 mm[Hg] 102 mm[Hg] [facility] Diastolic blood pressure 68 mm[Hg] 68 mm[Hg] [place] ([facility]) Heart rate 56 /min 56 /min [place] ([facility]) Respiratory rate 20 /min 20 /min [place] ([facility]) Body height 64.75 [in_i] 64.75 [in_i] [place] ([facility]) Body weight 147.5 [lb_av] 147.5 [lb_av] [facility]) Body mass index (BMI) [Ratio] 24.7 kg/m2 24.7 k g/m2 Counts include 234 beds at the [facility]) Systolic blood pressure 120 mm[Hg] 120 mm[Hg] [facility]) Diastolic blood pressure 82 mm[Hg] 82 mm[Hg] [place] ([facility]) Heart rate 72 /min 72 /min [place] ([facility]) Respiratory rate 18 /min 18 /min [place] ([facility]) Body temperature 98 [degF] 98 [degF] Counts include 234 beds at the [facility]) Body height 64.75 [in_i] 64.75 [in_i] [place] ([facility]) Body weight 150 [lb_av] 150 [lb_av] [place] ([facility]) Body mass index (BMI) [Ratio] 25.2 kg/m2 25.2 k g/m2 [place] ([facility]) Body surface area Derived from formula 1.75 m2 1.75 m2 Counts include 234 beds at the [facility]) Oxygen saturation in Arterial blood by Pulse oximetry 98 % 98 % Counts include 234 beds at the [facility]) Systolic blood pressure 120 mm[Hg] 120 mm[Hg] [facility] ([facility]) Diastolic blood pressure 82 mm[Hg] 82 mm[Hg] [place] ([facility]) Heart rate 72 /min 72 /min [place] ([facility]) Respiratory rate 18 /min 18 /min [place] ([facility]) Body temperature 98 [degF] 98 [degF] [place] ([facility]) Body height 64.75 [in_i] 64.75 [in_i] [place] ([facility]) Body weight 150 [lb_av] 150 [lb_av] [place] ([facility]) Body mass index (BMI) [Ratio] 25.2 kg/m2 25.2 k g/m2 [place] ([facility]) Body surface area Derived from formula 1.75 m2 1.75 m2 [place] ([facility]) Oxygen saturation in Arterial blood by Pulse oximetry 98 % 98 % [place] ([facility]) Systolic blood pressure 120 mm[Hg] 120 mm[Hg] [facility]) Diastolic blood pressure 82 mm[Hg] 82 mm[Hg] [place] ([facility]) Heart rate 72 /min 72 /min [place] ([facility]) Respiratory rate 18 /min 18 /min [place] ([facility]) Body temperature 98 [degF] 98 [degF] [place] ([facility]) Body height 64.75 [in_i] 64.75 [in_i] [place] ([facility]) Body weight 150 [lb_av] 150 [lb_av] [place] ([facility]) Body mass index (BMI) [Ratio] 25.2 kg/m2 25.2 k g/m2 [place] ([facility]) Body surface area Derived from formula 1.75 m2 1.75 m2 [place] ([facility]) Oxygen saturation in Arterial blood by Pulse oximetry 98 % 98 % [place] ([facility]) Diastolic blood pressure--supine 60 mm[Hg] 60 mm[Hg] [facility] ([facility]) [place], medium cuff Systolic blood pressure--standing 96 mm[Hg] 96 mm[Hg] [facility] ([facility]) [place], medium cuff Body weight 146.00 [lb_av] 146.00 [lb_av] [facility] [place] ([facility]) Body height 65 [in_i] 65 [in_i] [facility] 5'5" Body mass index (BMI) [Ratio] 24.3 kg/m2 24.3 k g/m2 [facility] ([facility]) Heart rate 80 /min 80 /min [facility] ([facility]) regular Respiratory rate 16 /min 16 /min [facility] ( [facility]) nonlabored Systolic blood pressure--sitting 96 mm[Hg] 96 mm[Hg] [facility] ([facility]) [place], medium cuff Diastolic blood pressure--sitting 58 mm[Hg] 58 mm[Hg] [facility] ([facility]) [place], medium cuff Systolic blood pressure--supine 98 mm[Hg] 98 m m[Hg] [facility] ([facility]) [place], medium cuff Diastolic blood pressure--standing 56 mm[Hg] 5 6 mm[Hg] [facility] ([facility]) [place], medium cuff Body height 64.75 [in_i] 64.75 [in_i] [place] ([facility]) Systolic blood pressure 125 mm[Hg] 125 mm[Hg] [facility] ([facility]) Diastolic blood pressure 84 mm[Hg] 84 mm[Hg] [place] ([facility]) Heart rate 87 /min 87 /min [place] ([facility]) Body height 64.75 [in_i] 64.75 [in_i] [place] ([facility]) Body weight 142 [lb_av] 142 [lb_av] [place] ([facility]) Body mass index (BMI) [Ratio] 23.8 kg/m2 23.8 k g/m2 [place] ([facility]) Body surface area Derived from formula 1.71 m2 1.71 m2 [place] ([facility]) Systolic blood pressure 110 mm[Hg] 110 mm[Hg] M [facility] ([facility]) Diastolic blood pressure 70 mm[Hg] 70 mm[Hg] [facility] ([facility]) Heart rate 88 /min 88 /min [facility] ([facility]) Body height 63.5 [in_i] 63.5 [in_i] [facility] ([facility]) 5'3.50" Body weight 146.25 [lb_av] 146.25 [lb_av] [facility] ([facility]) Body mass index (BMI) [Ratio] 25.5 kg/m2 25.5 k g/m2 [facility] ([facility]) Oxygen saturation in Arterial blood by Pulse oximetry 90 % 90 % [facility] ([facility]) Systolic blood pressure 122 mm[Hg] 122 mm[Hg] [place] ([facility]) Diastolic blood pressure 80 mm[Hg] 80 mm[Hg] [facility] ([facility]) Heart rate 76 /min 76 /min [facility] ([facility]) Body height 63.5 [in_i] 63.5 [in_i] [facility] ([facility] ) 5'3.50" Body weight 143.31 [lb_av] 143.31 [lb_av] [facility] ([facility]) Body mass index (BMI) [Ratio] 25.0 kg/m2 25.0 k g/m2 [facility] ([facility]) Oxygen saturation in Arterial blood by Pulse oximetry 98 % 98 % [facility] ([facility]) Patient Treatment Plan of Care Planned Activity Planned Date Details Description Data Source (s) Metoclopramide 5 MG Oral Tablet 01/12/2021 12:00:00 AM [facility] ([facility]) Amlodipine 2.5 MG Oral Tablet 01/12/2021 12:00:00 AM [facility] ([facility]) Simvastatin 20 MG Oral Tablet 10/17/2020 12:00:00 AM [facility]) Cyclobenzaprine hydrochloride 10 MG Oral Tablet 08/13/2020 12:00:00 AM [facility] ([facility]) Trazodone Hydrochloride 150 MG Oral Tablet 08/06/2020 12:00:00 AM [facility] ([facility]) Simvastatin 20 MG Oral Tablet 07/25/2020 12:00:00 AM [facility]) Amoxicillin 875 MG / Clavulanate 125 MG Oral Tablet 07/18/20 12:00:00 AM [facility]) Estrogens, Conjugated (HALFWAY) 0.45 MG Oral Tablet [Puja rin] 06/08/2020 12:00:00 AM [facility] ([facility]) Amlodipine 10 MG Oral Tablet 03/06/2020 12:00:00 AM [facility] ([facility]) Estrogens, Conjugated (HALFWAY) 0.45 MG Oral Tablet [Puja rin] 03/05/2020 12:00:00 AM [facility] ([facility]) Trazodone Hydrochloride 150 MG Oral Tablet 11/11/2019 12:00:[address] [place] ([facility]) Cyclobenzaprine hydrochloride 10 MG Oral Tablet 09/22/2019 12:00:00 AM [facility] ([facility])
--- NOTE | 2021-07-16 16:04 | ECGEPIP ---
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
[2021-07-16] MEDS ORDERED: AMLO25TA PO (16:14)
[2021-07-16] MEDS ORDERED: REGL5TAB2 PO (16:14)
[2021-07-16] MEDS ORDERED: TRAZ1TAB14 PO (16:14)
[2021-07-16] MEDS ORDERED: HOME MED LIST COMPLETE! XX SCH (16:15)
[2021-07-16] MEDS ORDERED: ACETAMINOPHEN TAB 650MG DOSE (2X325MG) PO PRN (16:30)
[2021-07-16] MEDS ORDERED: LOSARTAN 25 MG TAB PO ONE (16:35)
--- NOTE | 2021-07-16 16:55 | HPEPDOC ---
[facility] Medical History & Physical Date of Admission Jul 16, 2021 Date of Service: Jul 16, 2021 Attending Physician: VESTA WEINER DO History and Physical CHIEF COMPLAINT: Chest pain passing out HISTORY OF PRESENT ILLNESS: Patient is a 55-year-old female who presented to the emergency department with a chief complaint of 1 to 2 weeks of intermittent chest pain. Patient describes the pain is upper left chest pain that radiates down to her left arm. Patient says it feels like it is "in her veins". Patient says that the pain is intermittent does not notice any activities that exacerbate the pain. Patient does state that she has been ignoring the pain until the patient had passed out this morning. Patient states that she was sitting up in bed after waking up and was about to have her first cigarette of the day when she felt her partner tapping her on the shoulder. Patient apparently had passed out and had woken up immediately afterwards. There was no convulsing. Patient did not lose continence of bowel or bladder during this episode. Patient states that she felt lightheaded prior to this episode and later on the day but did not pass out later on the day. Patient sat down. Trista ent does not feel dizzy. Patient states that the chest pain was not present at this time but has been present throughout most of the rest of the day. Patient denies any increased cough or shortness of breath. Patient's chest pain was not any worse than it had been during this episode. PAST MEDICAL HISTORY: 1. Hypertension. 2. GERD. PAST SURGICAL HISTORY: 1. Tonsillectomy. 2. Left breast biopsy. 3. Pelvic wall reconstruction. SOCIAL HISTORY: Patient smokes cigarettes and will use marijuana occasionally. Patient rarely drinks alcohol patient denies any other illicit drug use. FAMILY HISTORY: Patient's mother and father both in their 50s. Patient's father of brain cancer. Patient's mother from COPD ALLERGIES: Please see below. REVIEW OF SYSTEMS: General: Patient denies fevers HEENT: Patient denies headaches Cardiovascular: Patient reports chest pain as above Respiratory: Patient denies shortness of breath, cough GI: Patient denies abdominal pain, nausea, vomiting, diarrhea : Patient denies increased frequency or pain with urination Extremities: Patient denies swelling or pain in extremities Neurological: Patient denies numbness or tingling in legs Skin: Patient denies any new rashes or lesions. Hematologic: Patient denies any easy bruising. Lymphatic: Patient denies any lumps lumps or bumps in neck, axilla, or groin HOME MEDICATIONS: Please see below. PHYSICAL EXAMINATION: VITAL SIGNS: Temperature 96.7, pulse 65, respiratory rate 18, blood pressure 163/84, pulse oximetry 99% on room air. General: Alert and oriented female patient who is laying in the bed when I walked in. Patient did not appear to be in any acute distress. HEENT: Normocephalic, atraumatic, moist mucous membranes. Neck: No lymphadenopathy or thyromegaly Cardiac: Regular rate and rhythm, no murmurs, normal S1, normal S2 Pulm: Clear to auscultation bilaterally. No wheezes, rhonchi, rales Abd: Nondistended, nontender to palpation, normal bowel sounds Ext: No edema bilateral lower extremities Neuro: Patient had equal strength in upper and lower extremities bilaterally. Patient reported sensation to light touch in upper and lower extremities bilaterally. Skin: Skin of the head, neck, upper and lower extremities was examined did not show any evidence of rash or wounds. LABORATORY DATA: See below. IMAGING: Chest x-ray performed on 07/16/2021 was reported to show no acute cardiopulmonary disease. Left upper extremity ultrasound performed on 07/16/2021 was reported to show negative exam. CT angiogram of the chest performed on 07/16/2021 is reported to show there is no evidence of acute disease. There are multiple stable pulmonary nodules and there is evidence of emphysematous change status quo. MICROBIOLOGY: Please see below. ASSESSMENT: 55-year-old female who presented to the hospital with a 1 to 2-week history of chest pain as well as witnessed syncope while sitting in bed . PLAN: 1. Syncope. Patient had orthostatic vitals performed in the emergency department which she was only able to do laying down and sitting up due to lightheadedness. Patient's blood pressure did not fall. We will continue with orthostatic vitals. Patient should be ambulated with assist. Echocardiogram has been ordered EKG was reviewed and showed normal sinus rhythm. While I was in the room, patient did have a very rare PVC on the supervisor mold shop. P atient's blood pressure appears to be mildly elevated and patient states that this is been going on for the last couple days. We will additionally treat the patient's blood pressure and keep the patient on telemetry overnight. 2. Chest wall pain. Patient's chest pain is possibly secondary to mus culoskeletal pain. Patient states that when she retracts her shoulders that she feels some pain similar to the pain that she has been describing. There is no tenderness to palpation. Patient's troponin has been negative and her EKG shows normal sinus rhythm. We will place the patient on telemetry and monitor for any changes. 3. Hypertension. Patient blood pressure is uncontrolled this time. Patient takes amlodipine 2.5 mg daily. We will add losartan 25 mg to be taken once to see how she responds with blood pressure. We'll continue to monitor the patient's blood pressure and continue her amlodipine in the morning. 4. GERD. Continue home medications. 5. DVT prophylaxis: Lovenox 6. CODE STATUS: Full code Disposition. Patient will be admitted to medical surgical floor with telemetry on observation. Patient will most likely be discharged prior to 2 midnight stay. Vital Signs Vital Signs Date Time Temp Pulse Resp B/P (MAP) Pulse Ox O2 Delivery O2 Flow Rate FiO2 07/16/21 15:07 65 163/84 (110) 67 162/94 (116) 07/16/21 13:23 96.7 18 99 Room Air Laboratory Data Labs 24H Laboratory Tests 2 07/16/21 13:33: Immature Granulocyte % (Auto) 0.2, Neutrophils (%) (Auto) 53.7, Lymphocytes (%) (Auto) 38.4, Monocytes (%) (Auto) 5.2, Eosinophils (%) (Auto) 1.9, Basophils (%) (Auto) 0.6, Neutrophils # (Auto) 5.1, Lymphocytes # (Auto) 3.6, Monocytes # (Au to) 0.5, Eosinophils # (Auto) 0.2, Basophils # (Auto) 0.1, Nucleated Red Blood Cells % (auto) 0.0, Anion Gap 4L, Glomerular Filtration Rate > 60.0, Calcium Level 9.3, Total Bilirubin 0.3, Direct Bilirubin < 0.1, Aspartate Amino Transf (AST/SGOT) 9, Alanine Aminotransferase (ALT/SGPT) 16, Alkaline Phosphatase 76, Total Creatine Kinase 47, Creatine Kinase MB < 1.0, Creatine Kinase MB Relative Index 2.13, Troponin I < 0.02, UU-Xnf-A-Type Natriuretic Peptide 110, Total Protein 6.9, Albumin 3.6, Albumin/Globulin Ratio 1.1L, Lipase 88, Thyroid Stimulating Hormone (TSH) 2.280, Free Thyroxine 1.01 07/16/21 16:10: CBC/BMP Laboratory Tests 07/16/21 13:33 Home Medications Scheduled Amlodipine Besylate (Amlodipine Besylate) 2.5 Mg Tablet, 2.5 MG PO DAILY Cyclobenzaprine HCl (Cyclobenzaprine HCl) 10 Mg Tab, 10 MG PO QHS Docusate Sodium (Stool Softener) 100 Mg Cap, 400 MG PO QHS Metoclopramide Hcl (Reglan) 5 Mg Tablet, 5 MG PO DAILY Pantoprazole Sodium (Pantoprazole Sodium) 40 Mg Tablet.dr, 40 MG PO DAILY Simvastatin (Simvastatin) 20 Mg Tab, 20 MG PO QHS Trazodone HCl (Trazodone HCl) 150 Mg Tablet, 150 MG PO QHS Umeclidinium [place] (Incruse Ellipta) 62.5 Mcg Blst.w.dev, 1 PUFF INH QAM Allergies Coded Allergies: lisinopril (Verified Adverse Reaction, Intermediate, cough, 02/14/20) TAPE (Verified Adverse Reaction, Mild, TEARS SKIN OFF, 02/14/20) A-FIB/CHADSVASC A-FIB History Current/History of A-Fib/PAF?: No VESTA WEINER DO Jul 16, 2021 16:55
--- OUTSIDE RECORDS SUMMARY | 2021-07-16 16:55 | CCD ---
Author Author [facility] Organization [facility] Address Unknown Phone Unavailable Care Team Providers Care Sterile Supervisor Name Role Phone MALLY MERRITT MD Unavailable Unavailable MALLY MERRITT MD Unavailable Unavailable Michael Marquis Unavailable Unavailable GANESH, B STAN FILTERING MACHINE TENDER Unavailable Unavailable GANESH, B STAN FILTERING MACHINE TENDER Unavailable Unavailable GANESH, B STAN FILTERING MACHINE TENDER Unavailable Unavailable GANESH, B STAN FILTERING MACHINE TENDER Unavailable Unavailable GANESH, B STAN FILTERING MACHINE TENDER Unavailable Unavailable GANESH, B STAN FILTERING MACHINE TENDER Unavailable Unavailable GANESH, B STAN FILTERING MACHINE TENDER Unavailable Unavailable GANESH, B STAN FILTERING MACHINE TENDER Unavailable Unavailable GANESH, B STAN FILTERING MACHINE TENDER Unavailable Unavailable GANESH, B STAN FILTERING MACHINE TENDER Unavailable Unavailable GANESH, B STAN FILTERING MACHINE TENDER Unavailable Unavailable GANESH, B STAN FILTERING MACHINE TENDER Unavailable Unavailable GANESH, B STAN FILTERING MACHINE TENDER Unavailable Unavailable GANESH, B STAN FILTERING MACHINE TENDER Unavailable Unavailable GANESH, B STAN FILTERING MACHINE TENDER Unavailable Unavailable GANESH, B STAN FILTERING MACHINE TENDER Unavailable Unavailable GANESH, B STAN FILTERING MACHINE TENDER Unavailable Unavailable GANESH, B STAN FILTERING MACHINE TENDER Unavailable Unavailable GANESH, B STAN FILTERING MACHINE TENDER Unavailable Unavailable GANESH, B TSAN FILTERING MACHINE TENDER Unavailable Unavailable GANESH, B STAN FILTERING MACHINE TENDER Unavailable Unavailable GANESH, B STAN FILTERING MACHINE TENDER Unavailable Unavailable GANESH, B STAN FILTERING MACHINE TENDER Unavailable Unavailable GANESH, B STAN FILTERING MACHINE TENDER Unavailable Unavailable GANESH, B STAN FILTERING MACHINE TENDER Unavailable Unavailable GANESH, B STAN FILTERING MACHINE TENDER Unavailable Unavailable GANESH, B STAN FILTERING MACHINE TENDER Unavailable Unavailable GANESH, B STAN FILTERING MACHINE TENDER Unavailable Unavailable GANESH, B STAN FILTERING MACHINE TENDER Unavailable Unavailable GANESH, B STAN FILTERING MACHINE TENDER Unavailable Unavailable GANESH, B STAN FILTERING MACHINE TENDER Unavailable Unavailable GANESH, B STAN FILTERING MACHINE TENDER Unavailable Unavailable GANESH, B STAN FILTERING MACHINE TENDER Unavailable Unavailable GANESH, B STAN FILTERING MACHINE TENDER Unavailable Unavailable GANESH, B STAN FILTERING MACHINE TENDER Unavailable Unavailable GANESH, B STAN FILTERING MACHINE TENDER Unavailable Unavailable GANESH, B STAN FILTERING MACHINE TENDER Unavailable Unavailable GANESH, B STAN FILTERING MACHINE TENDER Unavailable Unavailable GANESH, B STAN FILTERING MACHINE TENDER Unavailable Unavailable GANESH, B STAN FILTERING MACHINE TENDER Unavailable Unavailable GANESH, B STAN FILTERING MACHINE TENDER Unavailable Unavailable GANESH, B STAN FILTERING MACHINE TENDER Unavailable Unavailable GANESH, B STAN FILTERING MACHINE TENDER Unavailable Unavailable GANESH, B STAN FILTERING MACHINE TENDER Unavailable Unavailable GANESH, B STAN FILTERING MACHINE TENDER Unavailable Unavailable GANESH, B STAN FILTERING MACHINE TENDER Unavailable Unavailable GANESH, B STAN FILTERING MACHINE TENDER Unavailable Unavailable GANESH, B STAN FILTERING MACHINE TENDER Unavailable Unavailable GANESH, B STAN FILTERING MACHINE TENDER Unavailable Unavailable GANESH, B STAN FILTERING MACHINE TENDER Unavailable Unavailable GANESH, B STAN FILTERING MACHINE TENDER Unavailable Unavailable GANESH, B STAN FILTERING MACHINE TENDER Unavailable Unavailable GANESH, B STAN FILTERING MACHINE TENDER Unavailable Unavailable GANESH, B STAN FILTERING MACHINE TENDER Unavailable Unavailable GANESH, B STAN FILTERING MACHINE TENDER Unavailable Unavailable GANESH, B STAN FILTERING MACHINE TENDER Unavailable Unavailable GANESH, B STAN FILTERING MACHINE TENDER Unavailable Unavailable GANESH, B STAN FILTERING MACHINE TENDER Unavailable Unavailable GANESH, B STAN FILTERING MACHINE TENDER Unavailable Unavailable GANESH, B STAN FILTERING MACHINE TENDER Unavailable Unavailable GANESH, B STAN FILTERING MACHINE TENDER Unavailable Unavailable GANESH, B STAN FILTERING MACHINE TENDER Unavailable Unavailable MUHA, M FRANCISCO GROUP BURNER MACHINE Unavailable Unavailable MUHA, M FRANCISCO GROUP BURNER MACHINE Unavailable Unavailable MUHA, M FRANCISCO GROUP BURNER MACHINE Unavailable Unavailable MUHA, M FRANCISCO GROUP BURNER MACHINE Unavailable Unavailable MUHA, M FRANCISCO GROUP BURNER MACHINE Unavailable Unavailable MUHA, M FRANCISCO GROUP BURNER MACHINE Unavailable Unavailable MUHA, M FRANCISCO GROUP BURNER MACHINE Unavailable Unavailable MUHA, M FRANCISCO GROUP BURNER MACHINE Unavailable Unavailable MUHA, M FRANCISCO GROUP BURNER MACHINE Unavailable Unavailable MUHA, M FRANCISCO GROUP BURNER MACHINE Unavailable Unavailable MUHA, M FRANCISCO GROUP BURNER MACHINE Unavailable Unavailable MUHA, M FRANCISCO GROUP BURNER MACHINE Unavailable Unavailable MUHA, M FRANCISCO GROUP BURNER MACHINE Unavailable Unavailable MUHA, M FRANCISCO GROUP BURNER MACHINE Unavailable Unavailable MUHA, M FRANCISCO GROUP BURNER MACHINE Unavailable Unavailable MUHA, M FRANCISCO GROUP BURNER MACHINE Unavailable Unavailable MUHA, M FRANCISCO GROUP BURNER MACHINE Unavailable Unavailable MUHA, M FRANCISCO GROUP BURNER MACHINE Unavailable Unavailable MUHA, M FRANCISCO GROUP BURNER MACHINE Unavailable Unavailable MUHA, M FRANCISCO GROUP BURNER MACHINE Unavailable Unavailable MUHA, M FRANCISCO GROUP BURNER MACHINE Unavailable Unavailable MUHA, M FRANCISCO GROUP BURNER MACHINE Unavailable Unavailable MUHA, M FRANCISCO GROUP BURNER MACHINE Unavailable Unavailable MUHA, M FRANCISCO GROUP BURNER MACHINE Unavailable Unavailable MUHA, M FRANCISCO GROUP BURNER MACHINE Unavailable Unavailable MUHA, M FRANCISCO GROUP BURNER MACHINE Unavailable Unavailable MUHA, M FRANCISCO GROUP BURNER MACHINE Unavailable Unavailable MUHA, M FRANCISCO GROUP BURNER MACHINE Unavailable Unavailable MUHA, M FRANCISCO GROUP BURNER MACHINE Unavailable Unavailable MUHA, M FRANCISCO GROUP BURNER MACHINE Unavailable Unavailable MUHA, M FRANCISCO GROUP BURNER MACHINE Unavailable Unavailable MUHA, M FRANCISCO GROUP BURNER MACHINE Unavailable Unavailable MUHA, M FRANCISCO GROUP BURNER MACHINE Unavailable Unavailable MUHA, M FRANCISCO GROUP BURNER MACHINE Unavailable Unavailable MUHA, M FRANCISCO GROUP BURNER MACHINE Unavailable Unavailable MUHA, M FRANCISCO GROUP BURNER MACHINE Unavailable Unavailable MUHA, M FRANCISCO GROUP BURNER MACHINE Unavailable Unavailable MUHA, M FRANCISCO GROUP BURNER MACHINE Unavailable Unavailable MUHA, M FRANCISCO GROUP BURNER MACHINE Unavailable Unavailable MUHA, M FRANCISCO GROUP BURNER MACHINE Unavailable Unavailable MUHA, M FRANCISCO GROUP BURNER MACHINE Unavailable Unavailable MUHA, M FRANCISCO GROUP BURNER MACHINE Unavailable Unavailable MUHA, M FRANCISCO GROUP BURNER MACHINE Unavailable Unavailable MUHA, M FRANCISCO GROUP BURNER MACHINE Unavailable Unavailable MUHA, M FRANCISCO GROUP BURNER MACHINE Unavailable Unavailable MUHA, M FRANCISCO GROUP BURNER MACHINE Unavailable Unavailable MUHA, M FRANCISCO GROUP BURNER MACHINE Unavailable Unavailable MUHA, M FRANCISCO GROUP BURNER MACHINE Unavailable Unavailable MUHA, M FRANCISCO GROUP BURNER MACHINE Unavailable Unavailable MUHA, M FRANCISCO GROUP BURNER MACHINE Unavailable Unavailable MUHA, M FRANCISCO GROUP BURNER MACHINE Unavailable Unavailable MUHA, M FRANCISCO GROUP BURNER MACHINE Unavailable Unavailable MUHA, M FRANCISCO GROUP BURNER MACHINE Unavailable Unavailable MUHA, M FRANCISCO GROUP BURNER MACHINE Unavailable Unavailable Roxanne, E Rosalie MD Unavailable [...] Soto Griggs MD Unavailable Unavailable Fish, B Henyn MACEDO Unavailable Unavailable Fish, B Henny MACEDO [...] is protected by Article 27-F of the [facility] Public Health law. If you continue you may have access to information: Regarding HIV / AIDS; Provided by facilities licensed or operated by the [facility] Office of Mental Health; or Provided by the [facility] Office for People With Developmental Disabilities. If such information is present, then the following [facility] mandated warning applies: This information [...] law may result in a fine or alf sentence or both. A general authorization for the release of medical or other information is NOT sufficient authorization for further disc losure. Allergies and Adverse Reactions Type Description Substance Reaction Status Data Source(s ) Allergy to substance No Known Allergies No known allergies (situation ) [facility] ([facility]) Allergy to substance No Known Allergies No known allergies (situation ) [facility]) Family History Family Member Name Family Member Gender Family Member Status Date o f Status Description Data Source(s) Unknown Unknown Problem [facility] ([facility]) mother Encounters Encounter Providers Location Date Indications Data Source(s ) Attender: Michael Marquis 05/08/2021 08:21:08 PM EDT [facility] Attender: Michael Marquis 04/22/2021 08:21:08 PM EDT [facility] Attender: Irwin Perez PA-C 04/20/2021 04:09:29 PM EDT - 04/20/2021 04:44:17 PM EDT [facility] Attender: Michael Marquis 04/19/2021 08:21:07 PM EDT [facility] Attender: Michael Marquis 04/19/2021 08:21:07 PM EDT [facility] Attender: Michael Marquis 04/15/2021 08:21:07 PM EDT [facility] <td ID="encounterTypeDescriptionID0">jalil martinez</td><td>Lucien Rascon</td><td>[facility]</td><td>01/12/2021</td><td>8:56AM</td><td>10:14AM</td><td><content ID="encounterDiagnosisID0-0">Gastroparesis</content>, <content ID="encounterDiagnosisID0-1">Essential Hypertension</content>, <content ID="encounterDiagnosisID0-2">Tendonitis</content></td>Outpatient Attender: Lucien CAMPBELL [facility] 01/12/2021 08:56:00 A M EDT - 01/12/2021 10:14:29 AM EDT TendonitisGastroparesisEssential Hypertension [facility]) Tendonitis Gastroparesis Essential Hypertension <td ID="encounterTypeDescriptionID2">[Pa tient Encounter]</td><td>Francisco Hu GROUP BURNER MACHINE-BC</td><td></td><td>10/21/2020</td><td>10/01/2020 2:55PM</td><td>10/01/2020 11:59PM</td><td></td>Outpatient Attender: FRANCISCO GAMINGADEN GAMEZ 0 10/01/2020 02:55:00 PM EST - 10/01/2020 11:59:00 PM [facility] Outpatient<td ID="encounterTypeDescripti onID1">[Patient Encounter]</td><td>Francisco Gamingaden GROUP BURNER MACHINE- BC</td><td></td><td>10/29/2020</td><td>10/01/2020 11:49AM</td><td>10/01/2020 11:59PM</td><td></td> Attender: FRANCISCO GAMINGADEN GAMEZ 10/01/2020 11:49:00 AM EST - 10/01/2020 11:59:00 PM [facility] Outpatient<td ID="encounterTypeDescripti onID3">[Patient Encounter]</td><td>Francisco Gamingaden GROUP BURNER MACHINE- BC</td><td></td><td>10/03/2020</td><td>10/01/2020 10:53AM</td><td>10/01/2020 11:59PM</td><td></td> Attender: FRANCISCO JANIE GAMEZ 10/01/2020 10:53:00 AM EST - 10/01/2020 11:59:00 PM EST [facility]) Outpatient<td ID="encounterTypeDescripti onID6">followup</td><td>Francisco Yousif Janie SOTO</td><td>[facility]</td><td>10/01/2020</td><td>8:58AM</td><td>10:06AM</td><td><content ID="encounterDiagnosisID6-0">Essential Hypertension</content>, <content ID="encounterDiagnosisID6-1">Hyperlipidemia</content>, <content ID="encounterDiagnosisID6-2">Osteoarthritis Localized Wrist Left</content>, <content ID="encounterDiagnosisID6-3">Nicotine-related Disorders</content>, <content ID="encounterDiagnosisID6-4">Ganglion Left Wrist</content></td> Attender: FRANCISCO GAMEZ [facility] 10/01/2020 08:58:00 AM EST - 10/01/2020 10:06:00 AM EST Ganglion Left WristOsteoarthritis Locali zed Wrist LeftNicotine-related DisordersHyperlipidemiaEssential Hypertension [facility] ([facility]) Ganglion Left Wrist Osteoarthritis Localized Wrist Left Nicotine-related Disorders Hyperlipidemia Essential Hypertension Outpatient<td ID="encounterTypeDescripti onID5">ANNUAL PE-followup exam/30</td><td>Francisco Yousif Janie THOMPSON</td><td>[facility]</td><td>10/01/2020</td><td>8:58AM</td><td>10:06AM</td><td><content ID="encounterDiagnosisID5-0">Routine History and Physical Adult (18 - 64 Yrs)</content></td> Attender: FRANCISCO GAMEZ [facility], [facility] 10/01/2020 08:58:00 AM EST - 10/01/2020 10:06:00 AM EST Routine History and Physical Adult (18 - 64 Yrs) [facility]) Routine History and Physical Adult (18 - 64 Yrs) Outpatient<td ID="encounterTypeDescripti onID4"> Annual Wellness SUBSEQUENT visi t(> 1yr since prev.</td><td>Francisco Yousif Janie [facility]OMPSON</td><[facility]td><td>10/01/2020</td><td> 8:57AM</td><td>10:06AM</td><td><content ID="encounterDiagnosisID4-0">Nicotine Dependence</content>, <content ID="encounterDiagnosisID4-1">Routine History and Physical Adult (18 - 64 Yrs)</content></td> Attender: FRANCISCO GAMEZ [facility] 10/01/2020 08:57:00 AM EST - 10/01/2020 10:06:00 AM ES T Routine History and Physical Adult (18 - 64 Yrs)Nicotine Dependence [facility] ([facility]) Routine History and Physical Adult (18 - 64 Yrs) Nicotine Dependence Outpatient Attender: MALLY MERRITT MD 09/29/2020 0 8:00:00 AM EST PT HAS ORDERS [facility] PT HAS ORDERS Outpatient Attender: KAIN CAMPBELL Main Office 08/31/2020 0 9:15:00 AM EST [facility] ([facility]) Outpatient<td ID="encounterTypeDescripti onID7">telephone conversation</td><td>Francisco THOMPSON</td><td[facility]td><td>07/18/2020</td><td>1:28PM</td><td>2:37PM</td><td><content ID="encounterDiagnosisID7-0">Sinusitis Acute</content></td> [facility] 01:28[facility]00 P M EDT - 07/18/2020 02:37:17 PM EDT Sinusitis AcuteSinusitis Acute [facility] ([facility]) Sinusitis Acute Sinusitis Acute <td ID="encounterTypeDescriptionID8">Tel ehealth communication</td><td>Rosalie Oliveira MD</td><td>[facility], [facility]</td><td>06/08/2020</td><td>2:22PM</td><td>2:48PM</td><td><content ID="encounterDiagnosisID8-0">Post-artificial Menopause State Symptomatic</content>, <content ID="encounterDiagnosisID8-1">Abnormal Weight Loss</content></td>Outpatient Attender: Rosalie Oliveira MD [facility], [facility] 06/08/2020 02:22:00 PM EDT - 06/08/2020 02:48:00 PM ED T Abnormal Weight LossAbnormal Weight LossAbnormal Weight LossPost-artificial Menopause State SymptomaticPost-artificial Menopause State SymptomaticPost-artificial Menopause State Symptomatic [facility] ([facility]) Abnormal Weight Loss Abnormal Weight Loss Abnormal Weight Loss Post-artificial Menopause State Symptoma tic Post-artificial Menopause State Symptoma tic Post-artificial Menopause State Symptoma tic Outpatient Attender: STAN ANDERSEN NP Physical Therapy 11:00:00 AM EDT [facility] ([facility]) Outpatient Attender: Henny Griggs MD Physical Therapy 05/22 10:30:00 AM EDT [facility] ([facility]) Immunizations Vaccine Date Status Description Data Source(s) COVID-19 VACCINE Moderna 02/16/2021 12:00:00 AM EDT completed [facility] Vaccine Series Complete: YESThis Data wa s Submitted to [facility] Via [employer]. COVID-19 VACCINE Moderna 01/15/2021 12:00:00 AM EDT completed [facility] Vaccine Series Complete: NOThis Data was Submitted to [facility] Via [employer]. Shingrix 09/21/2020 01:47:00 PM EST completed <td ID="Xaseojgkpswso-Npegtqugbvq-FQ5">Shingrix</td><td ID="ImmunizationDose- 2">2</td><td>09/21/2020</td><td ID="Jtjuzxlcnraxb-IjffdPlft-II5"></td><td></td> <td ID="Ifhiraannhues-Gjnexm-HN6">Complete (Reported)</td><td>Patient</td><td ID="Yubgwiswgwhar-Dcrah-Ntjh-Comment-ID2"></td> [facility]) Shingrix 05/29/2020 10:09:00 AM EDT completed <td ID="Tgaomigzoykpe-Jgnvgpnzjdb-UR5">Shingrix</td><td ID="ImmunizationDose- 1">1</td><td>05/29/2020</td><td ID="Pvizzaggfjiiz-AlilhSmxa-RQ9"></td><td></td> <td ID="Ginnsimfuhepb-Heoeon-RC0">Complete (Reported)</td><td>Patient</td><td ID="Dedsiwczjocql-Jgopa-Lxnp-Comment-ID1"></td> [facility]) IIV3. This is one of two codes replacing CVX 15, which is being retired. 05/29/2020 10:09:00 AM EDT completed <td ID="Nqxuwzqjxmmys-Xcfgnycdafh-KU6">Influenza, seasonal, injectable</td><td ID="ImmunizationDose-0">1</td><td>05/29/2020</td><td ID="Oxyzrfcvyxyit-EhqjeKtrh-GK0"></td><td></td><td ID="Gxezpcqkkieqn-Wqsbsq-KK4">Complete (Reported)</td><td>Patient</td><td ID="Mobdjwnyxwlic-Vgjhf-Iukk-Comment-ID0"></td> [facility]) Medications Medication Brand Name Start Date Product [...] ORAL active [facility] ([facility] 2.5 mg 02/11/2021 12:00:00 AM EDT tablet [...] EDT active amlodipine 2.5 MG Oral Tablet [facility] ([facility]) Metoclopramide 5 MG Oral Tablet Metoclopramide HCl 5 M G Oral Tablet Metoclopramide HCl 5 MG Oral Tablet 01/12/2021 12:00:00 AM EDT active metoclopramide 5 MG Oral Tablet [facility] ([facility]) 5 mg 01/12/2021 12:00:00 AM EDT tablet [...] 1 active simvastatin 20 MG Oral Tablet [facility]) Amlodipine 5 MG Oral Tablet amLODIPine Besylate 5 MG O ral Tablet amLODIPine Besylate 5 MG Oral Tablet 10/01/2020 12:00:00 AM EST 1 aborted amlodipine 5 MG Oral Tablet [facility]) Cyclobenzaprine hydrochloride 10 MG Oral Tablet CYCLOBENZAPR [...] ORAL completed [facility] ([facility] Docusate Sodium 50 MG / sennosides, MCC 8.6 MG Oral Tablet S mayra-S 08/30/2020 12:00:00 AM EST ORAL active M [facility] ([facility]) Docusate Sodium 100 MG Oral Capsule Stool Softener 08/30/2020 12:00 :00 AM EST ORAL active [facility] ([facility]) Trazodone Hydrochloride 150 MG Oral Tablet Trazodone HCL 08/30/2020 12:00:00 AM EST ORAL active [facility] ([facility]) Centrum Silver 50+Women 08/30/2020 12:00:00 AM EST ORAL active [facility] ([facility]) pantoprazole 40 MG Delayed Release Oral Tablet Pantoprazole Sodium 08/30/2020 12:00:00 AM EST ORAL active M [facility] ([facility]) 7 ACTUAT umeclidinium 0.0625 MG/ACTUAT Dry Powder Inha ler [Incruse] Incruse Ellipta 08/30/2020 12:00:00 AM EST RESPIRATORY active [facility] ([facility]) Cyclobenzaprine hydrochloride 10 MG Oral Tablet Cyclobenzaprine HCl 10 MG Oral Tablet Cyclobenzaprine HCl 10 MG Oral Tablet 08/13/2020 12:00:00 AM EST 1 active cyclobenzaprine hydrochlorid e 10 MG Oral Tablet [facility] ([facility]) 150 mg 08/08/2020 12:00:00 AM EST [...] active trazodone hydrochloride 150 MG Oral Tablet [facility] ([facility]) Simvastatin 20 MG Oral Tablet Simvastatin 20 MG Oral Tablet 07/25/2020 12:00:00 AM EST 1 aborted simvastatin 20 M G Oral Tablet [facility] 20 mg 07/19/2020 12:00:00 AM EDT tablet 90 TAKE ONE TABLET BY MOUTH EVERY DAY TAKE ONE TABLET BY MOUTH EVERY DAY SOLD: 07/24/2020 [facility] 875-125 mg 07/18/2020 12:00:00 AM EDT tablet 20 TAKE ONE TABLET BY MOUTH TWICE A DAY TAKE ONE TABLET BY MOUTH TWICE A DAY SOLD: 07/18/2020 [facility] Amoxicillin 875 MG / Clavulanate 125 MG Oral Tablet Amoxicillin-Pot Clavulanate 875-125 MG Oral Tablet Amoxicillin-Pot Clavulanate 875-125 MG Oral Tablet 07/18/2020 12:00:00 AM EDT completed amoxicillin 875 MG / clavulanate 125 MG Oral Tablet [facility] pantoprazole 40 MG Delayed Release Oral Tablet PANTOPRAZOLE SODIUM 06/26/2020 12:00:00 AM EDT tablet,delayed release (DR/EC) 90 T RICHARD ONE TABLET BY MOUTH EVERY MORNING 30 MINUTES BEFORE BREAKFAST. COMPLETE A TOTAL OF 3 MONTHS COURSE THEN TAPER OFF TAKE ONE TABLET BY MOUTH EVERY MORNING 3 0 MINUTES BEFORE BREAKFAST. COMPLETE A TOTAL OF 3 MONTHS COURSE THEN TAPER OFF SOLD: 09/18/2020 [facility] pantoprazole 40 MG Delayed Release Oral [...] DAY SOLD: 09/18/2020 [facility] Estrogens, Conjugated (MCC) 0.45 MG Oral Tablet [Premarin] Premarin 0.45 MG Oral Tablet Premarin 0.45 MG Oral Tablet 06/08/2020 12:00:00 AM EDT active estrogens, conjugated (MCC) 0.45 MG Oral Tablet [Premarin] [facility] ([facility]) 62.5 mcg/actuation 05/30/2020 12:00:00 AM EDT blister [...] PUFF BY MOUTH ONCE DAILY SOLD: 11/01/2020 [facility] 62.5 mcg/actuation 05/30/2020 12:00:00 AM EDT [...] PUFF BY MOUTH ONCE DAILY SOLD: 09/28/2020 [facility] pantoprazole 40 MG Delayed Release Oral Tablet PANTOPRAZOLE SODIUM 04/19/2020 12:00:00 AM EDT tablet,delayed release (DR/EC) 90 T RICHARD ONE TABLET BY MOUTH EVERY MORNING 1/2 HOUR BEFORE BREAKFAST, COMPLETE 3 MONTH COURSE AND THEN TAPER OFF TAKE ONE TABLET BY MOUTH EVERY MORNING 1 /2 HOUR BEFORE BREAKFAST, COMPLETE 3 MONTH COURSE AND THEN TAPER OFF SOLD: 12/06/2020 [facility] 4 mg 03/27/2020 12:00:00 AM EDT tablet 60 TAKE ONE TABLET BY MOUTH 1-2 TIMES A DAY BEFORE MEALS - TAKE ONLY WHEN HAVING NAUSEA TAKE ONE TABLET BY MOUTH 1-2 TIMES A DAY BEFORE MEALS - TAKE ONLY WHEN HAVING NAUSEA SOLD: 03/07/2021 [facility] 10 mg 03/06/2020 12:00:00 AM EDT tablet 79 TAKE ONE TABLET BY MOUTH EVERY DAY TAKE ONE TABLET BY MOUTH EVERY DAY SOLD: 11/17/2020 [facility] 10 mg 03/06/2020 12:00:00 AM EDT tablet 90 TAKE ONE TABLET BY MOUTH EVERY DAY TAKE ONE TABLET BY MOUTH EVERY DAY SOLD: 05/27/2020 [facility] Amlodipine 10 MG Oral Tablet amLODIPine Besylate 10 MG Oral Tablet amLODIPine Besylate 10 MG Oral Tablet 03/06/2020 12:00:00 AM EDT 1 aborted amlodipine 10 MG Oral Tablet [facility] 10 mg 03/06/2020 12:00:00 AM EDT tablet 90 TAKE ONE TABLET BY MOUTH EVERY DAY TAKE ONE TABLET BY MOUTH EVERY DAY SOLD: 08/22/2020 [facility] Estrogens, Conjugated (MCC) 0.45 MG Oral Tablet [Premarin] Premarin 0.45 MG Oral Tablet Premarin 0.45 MG Oral Tablet 03/05/2020 12:00:00 AM EDT aborted estrogens, conjugated (MCC) 0.45 MG Oral Tablet [facility]Prem[facility] 150 mg 02/20/2020 12:00:00 AM EDT tablet 75 TAKE ONE TABLET BY MOUTH AT BEDTIME TAKE ONE TABLET BY MOUTH AT BEDTIME SOLD: 05/27/2020 [facility] Cyclobenzaprine hydrochloride 10 MG Oral Tablet CYCLOBENZAPR INE HCL 11/11/2019 12:00:00 AM EST tablet 90 TAKE ONE TABLET BY MOUTH EVERY DAY TAKE ONE TABLET BY MOUTH EVERY DAY SOLD: 07/18/2020 [facility] Trazodone Hydrochloride 150 MG Oral Tablet traZODone H Cl 150 MG Oral Tablet traZODone HCl 150 MG Oral Tablet 11/11/2019 12:00:00 AM EST aborted trazodone hydrochloride 150 MG Oral Tablet [facility] ([facility]) Cyclobenzaprine hydrochloride 10 MG Oral Tablet Cyclobenzaprine HCl 10 MG Oral Tablet Cyclobenzaprine HCl 10 MG Oral Tablet 09/22/2019 12:00:00 AM EST 1 aborted cyclobenzaprine hydrochlorid e 10 MG Oral Tablet [facility] ([facility]) Insurance Providers Payer name Policy type / Coverage type Policy ID Covered alliance party ID Covered alliance party's relationship to blake Policy Blake Plan Information BLUE [employer]IONS 7 [id number] EXCELL H [id number] Self [id number] MEDICARE [id number] SP [id number] A [place]ID [place] [id number] SP [id number] Dual Complete Commercial [id number] Self [id number] Dual Complete Commercial [id number] Self [id number] [employer] Other 0 [id number] Self 0 UnitedHealthcare Other [facility]ARE [id number] Self [facility] ARE MEDICAID [id number] SP [id number] UNITED HEALTHCARE [facility] [id number] SP [id number] UnitedHealthcare Other NYCARE [id number] Self [facility] ARE MEDICARE COMPLETE [id number] SP [id number] UnitedHealthcare Other [facility]ARE [id number] Self [facility] ARE United[employer] Other [facility]ARE [id number] Self [facility] ARE [employer] Other 0 [id number] Self 0 UnitedHealth[employer] Other 0 [id number] Self 0 UnitedHealth[employer] Other 0 [id number] Self 0 UnitedHealthcare Other 0 [id number] Self 0 UNITED HEALTHCARE MCRO [id number] SP [id number] Needs Workers Comp Information WorkComp Health Claim [id number] Self [id number] Workers Comp I- FA WorkComp Health Claim [id number] [facility] [id number] [facility] [id number] SP [id number] MEDICARE COMPLETE [id number] SP [id number] UnitedHealthcare Other 0 [id number] Self 0 UnitedHealthcare Other 0 [id number] Self 0 [facility] Other 0 [id number] Self 0 [facility] Other 0 [id number] Self 0 Medicaid Medigap Part B [id number] Self [id number] [facility] Dual Cov Plan Commercial [id number] Self [id number] [facility] Other 0 [id number] Self 0 [facility] Other 0 [id number] Self 0 Medicaid Medigap Part B [id number] Self [id number] Medicaid [facility] Other 0 [id number] Self 0 Medicare Part B of [facility] Other 0 [id number] S elf 0 [place] Other 0 [id number] Self 0 Medicare Part B of [facility] Other 0 [id number] S elf 0 MEDICARE [id number] SP [id number] [place] of [place] Other 0 [id number] Self 0 Medicare Part B of [facility] Other 0 [id number] S elf 0 [place] Other 0 [id number] Self 0 Medicare Part B of [facility] Other 0 [id number] S elf 0 Medicaid [place] Medigap Part B [id number] Self [id number] Medicare Natl Gov't Servi Medicare Primary [id number] Self [id number] [place] of [place] Other 0 [id number] Self 0 Medicare Part B of [facility] Other 0 [id number] S elf 0 [place] Other 0 [id number] Self 0 Medicare [place] of [place] [facility] [place] Other 0 [id number] S elf 0 [place] Other 0 [id number] Self 0 Medicare Part B of [facility] Other 0 [id number] S elf 0 [place] Other 0 [id number] Self 0 Medicare Part B of [facility] Other 0 [id number] S elf 0 [place] Other 0 [id number] Self 0 Medicare Part B of [facility] Other 0 [id number] S elf 0 [place] Other 0 [id number] Self 0 Medicare Part B of [facility] Other 0 [id number] S elf 0 [place] Other 0 [id number] Self 0 Medicare Part B of [facility] Other 0 [id number] S elf 0 MEDICAID W [id number] BLUE CHOICE OPTION O [id number] S [id number] MEDICAID 3 [id number] 1 [id number] SELFPAY [address]IL[address] [facility] MEDICAID [id number] SP [id number] SELF PAY 5 UNAVAILABLE 1 UNAVAILA BLE [place] Other 0 [id number] Self 0 [facility] MCRO [id number] SP [id number] [place] [id number] SP [id number] MEDICAID M [id number] S [id number] [facility](MCAID) O [id number] S [id number] [place] Other 0 [id number] Self 0 [place] Other 0 [id number] Self 0 [place] Other 0 [id number] Self 0 MEDICAID [id number] SP [id number] [place] Other 0 [id number] Self 0 [place] Other 0 [id number] Self 0 [place] Other 0 [id number] Self 0 [place] Other 0 [id number] Self 0 [facility] [place] [place] Medigap Part B [id number] Self [id number] [place] Other 0 [id number] Self 0 [place] Other 0 [id number] Self 0 [facility] Other 0 [id number] Self 0 [facility] Health Maintenance Organization (HMO) [id number] Medigap Part B [id number] Self [id number] Problems, Conditions, and Diagnoses Code Display Name Description Problem Type Effective Dates Data Source(s) 536.3 Gastroparesis Gastroparesis Problem 10/03/2020 10:54:00 AM [facility] ([facility]) Surgeries/Procedures Procedure Description Date Indications Data Source(s) Annual wellness visit, includes a person alized prevention plan of service (pps), subsequent visit - subseq't annual wellness exam(1 yr after Initial) 10/01/2020 12:00:00 AM [facility] ([facility]) Annual depression screening, 15 minutes -Annual depr ession screening- 15 min. (Distinct Seperate service-same day) 10/01/2020 12:00:00 AM [facility] ([facility]) ECG ROUTINE ECG W/LEAST 12 LDS W/I&R 08/31/2020 12:00: 00 AM [facility] Fine Needle Aspiration Biopsy Inlcd Ultrasound Guidance 05/22/2020 12:00:00 AM EDT [facility] ([facility]) Echography Soft Tissue Hand & Neck 05/22/2020 12:00:00 AM EDT [facility] ([facility]) Results ID Date Data Source [id number] 12/19/2020 01:04:00 PM EDT [facility] ([facility]) Name Value Range Interpretation Code Description Data Lucita rce(s) Supporting Document(s) Alanine aminotransferase [Enzymatic activity/volume] in Serum or Pl asma 14 [facility] ([facility]) Calcium [Mass/volume] in Serum or Plasma 9.5 [facility] ([facility]) Albumin [Mass/volume] in Serum or Plasma 1.2 [facility] ([facility]) Chloride [Moles/volume] in Serum or Plasma 108 [facility] ([facility]) Carbon dioxide, total [Moles/volume] in Serum or Plasma 27 [facility] ([facility]) Potassium [Moles/volume] in Serum or Plasma 3.6 [facility] ([facility]) Protein [Mass/volume] in Serum or Plasma 7.6 [facility] ([facility]) Alkaline phosphatase [Enzymatic activity/volume] in Serum or Plasma 8 7 [facility] ([facility]) Sodium 140 [facility] Aspartate aminotransferase [Enzymatic activity/volume] in Serum or Plasma 8 [facility] ([facility]) Glucose 112 70-100 [facility] Urea nitrogen [Mass/volume] in Serum or Plasma 14 [facility] ([facility]) Creatinine For GFR 0.90 [facility] ([facility]) ID Date Data Source [id number] 12/19/2020 01:04:00 PM EDT [facility] ([facility]) Name Value Range Interpretation Code Description Data Lucita rce(s) Supporting Document(s) White Blood Count 10.3 4.0-10.0 [facility] ([facility]) Red Blood Count 4.79 4.00-5.40 [facility] ([facility]) Platelets 367 150-450 [facility] ([facility] Hematocrit 42.9 36.0-47.0 [facility] ([facility]) Hemoglobin 14.4 12.0-15.5 [facility] ([facility]) ID Date Data Source [id number] 09/29/2020 08:14:00 AM [facility] Name Value Range Interpretation Code Description Data Lucita rce(s) Supporting Document(s) Leukocytes [#/volume] in Blood by Automated count 10.2 10*3/uL 4.45-1 0.71 [facility] Erythrocytes [#/volume] in Blood by Automated count 4.54 10*6/uL 4.20 -5.40 [facility] Hemoglobin [Moles/volume] in Blood 13.8 g/dL 10.7-15.4 [facility] Hematocrit [Volume Fraction] of Blood by Automated count 41.8 % 3 7-47 [facility] Erythrocyte mean corpuscular volume [Ent itic volume] in Cord blood by Automated count 92.1 fL 80-96 N [facility] ital Erythrocyte mean corpuscular hemoglobin [Entitic mass] by Automated count 30.4 pg 27-31 [facility] E[facility] mean corpuscular hemoglobin concentration [Mass/volume] in Cord blood 33.0 g/dL 33-37 N [facility] ital Erythrocyte distribution width [Entitic volume] by Automated count 13 % 11-15 N [facility] Platelets [#/volume] in Blood by Automated count 346 10*3/uL 130-472 [facility] Platelet mean volume [Entitic volume] in Blood 8.2 fL 9.1-13. 1 Below low normal [facility] Neutrophils/100 leukocytes in Blood by Automated count 48.6 % 41- 77 [facility] Neutrophils [#/volume] in Blood by Automated count 5.0 U 1.7-7.6 [facility] Lymphocytes/100 leukocytes in Blood by Automated count 41.2 % 14- 46 [facility] Lymphocytes [#/volume] in Blood by Automated count 4.2 U 0.6-4.6 [facility] Monocytes/100 leukocytes in Blood by Automated count 6.8 % 4-12 [facility] Monocytes [#/volume] in Blood by Automated count 0.7 U 0.2-1.2 [facility] Eosinophils/100 leukocytes in Blood by Automated count 2.6 % 0-7 [facility] Eosinophils [#/volume] in Blood by Automated count 0.3 U 0.0-0.5 N [facility] Basophils/100 leukocytes in Blood by Automated count 0.6 % 0.4-1 .3 N [facility] Basophils [#/volume] in Blood by Automated count 0.1 U 0.0-0.2 N [facility] NUCLEATED RED BLOOD CELL 0 % [facility] NUCLEATED RED BLOOD CELL# 0 U [facility] Immature granulocytes [Presence] in Blood by Automated count 0-2 N [facility] Immature granulocytes [#/volume] in Blood by Automated count 0.0 U 0-0.1 N [facility] Manual Differential panel - Blood NO [facility] ID Date Data Source [id number] 09/29/2020 09:07:00 AM EST [facility] Name Value Range Interpretation Code Description Data Lucita rce(s) Supporting Document(s) Urea nitrogen [Mass/volume] in Serum or Plasma 12 mg/dL 9-23 [facility] Sodium [Moles/volume] in Serum or Plasma 142 mmol/L 132-146 [facility] Potassium [Moles/volume] in Serum or Plasma 4.2 mmol/L 3.5-5.5 [facility] Chloride [Moles/volume] in Serum or Plasma 107 mmol/L 99-109 [facility] Carbon dioxide, total [Moles/volume] in Serum or Plasma 32 mmol/ L 20-31 Above high normal [facility] Anion gap in Serum or Plasma 7 mmol/L 8-16 Below low normal [facility] Glucose [Mass/volume] in Serum or Plasma 99 mg/dL 74-106 [facility] Creatinine 0.9 mg/dL 0.5-1.1 [facility] Glomerular filtration rate/1.73 sq M.pre dicted [Volume Rate/Area] in Serum or Plasma Greater Than 60 ABOVE 60 [facility] Alanine aminotransferase [Enzymatic acti vity/volume] in Serum or Plasma by With P-5'-P 16 U/L 10-49 [facility] ital Aspartate aminotransferase [Enzymatic ac tivity/volume] in Serum or Plasma by With P-5'-P 13 U/L 0-33 [facility] pital Alkaline phosphatase [Enzymatic activity/volume] in Serum or Plasma 83 U/L 45-129 [facility] Calcium [Mass/volume] in Serum or Plasma 9.2 mg/dL 8.5-10.1 [facility] Bilirubin.total [Mass/volume] in Serum or Plasma 0.4 mg/dL 0.3-1.2 [facility] Albumin [Mass/volume] in Serum or Plasma by Bromocresol purple (BCP) dye binding method 3.8 g/dL 3.2-4.8 [facility] ital Protein [Mass/volume] in Serum or Plasma 7.2 g/dL 5.7-8.2 [facility] ID Date Data Source [id number] 09/29/2020 09:07:00 AM EST [facility] Name Value Range Interpretation Code Description Data Lucita rce(s) Supporting Document(s) Triglycerides 119 mg/dL 0-150 N [facility] Cholesterol 183 mg/dL 120-200 N [facility] HDL Cholesterol 51 mg/dL [facility] HDL Less than 40 mg/dL: Major risk for CHDHDL Greater than 59 mg/dL: Low risk for CHD LDL Cholesterol, Calc 109 mg/dL 0-100 Above high normal [facility] ID Date Data Source [id number] 09/29/2020 08:00:00 AM [facility] ([facility]) Name Value Range Interpretation Code Description Data Luciat rce(s) Supporting Document(s) Reported Physicians See Note Reported Physici ans [facility] ([facility]) Note: Reported Physicians:Ordering: Lc CANNONding: Breanne MERRITT To: Rosalie Oliveira ID Date Data Source [id number] 09/29/2020 08:00:00 AM [facility] ([facility]) Name Value Range Interpretation Code Description Data Lucita rce(s) Supporting Document(s) Alanine aminotransferase [Enzymatic acti vity/volume] in Serum or Plasma by With P-5'-P 16 enzyme_unit_per_liter Normal [facility] -P-cCnc [facility] ([facility]) Note: Responsible Observer: SGPT/ALT SGP T/ALT 400.1750 (G) Calcium [Mass/volume] in Serum or Plasma 9.2 MilliGramsPerDeciLiter_[Mass_Concentration_Units] Normal Calcium [facility] ([facility]) Note: Responsible Observer: Calcium Calc ium 400.2500 (G) Bilirubin.total [Mass/volume] in Serum or Plasma 0.4 MilliGramsPerDeciLiter_[Mass_Concentration_Units] Normal Bilirub [facility] ([facility]) Note: Responsible Observer: T TRENT Total Bilirubin 400.2600 (G) Carbon dioxide, total [Moles/volume] in Serum or Plasm a 32 MilliMolesPerLiter_[Substance_Concentration_Units] Above hig h normal CO2 [facility] ([facility]) Note: Responsible Observer: CO2 Carbon D ioxide 400.1400 (G) Chloride [Moles/volume] in Serum or Plasma 107 MilliMolesPerLiter_[Substance_Concentration_Units] Normal Chloride [facility] ([facility]) Note: Responsible Observer: Chloride Chl oride 400.1250 (G) Glucose [Mass/volume] in Serum or Plasma 99 MilliGramsPerDeciLiter_[Mass_Concentration_Units] Normal Glucose [facility] ([facility]) Note: Responsible Observer: Glucose Gluc ose 400.1500 (G) Potassium [Moles/volume] in Serum or Plasma 4.2 MilliMolesPerLiter_[Substance_Concentration_Units] Normal Potassium [facility] ([facility]) Note: Responsible Observer: K Potassium 400.1210 (G) Aspartate aminotransferase [Enzymatic ac tivity/volume] in Serum or Plasma by With P-5'-P 13 enzyme_unit_per_liter Normal AST [facility] w P-5' -P-[facility] ([facility]) Note: Responsible Observer: SGOT / AST S GOT / AST 400.1900 (G) Urea nitrogen [Mass/volume] in Serum or Plasma 12 MilliGramsPerDeciLiter_[Mass_Concentration_Units] Normal BUN [facility] ([facility]) Note: Responsible Observer: BUN Blood Ur ea Nitrogen 400.1000 (G) Protein [Mass/volume] in Serum or Plasma 7.2 GramsPerDeciLiter_[Mass_Concentration_Units] Normal Pro t [facility] ([facility]) Note: Responsible Observer: TP Total Pro tein 400.2800 (G) Sodium [Moles/volume] in Serum or Plasma 142 MilliMolesPerLiter_[Substance_Concentration_Units] Normal Sodium [facility] ([facility]) Note: Responsible Observer: Sodium Sodiu m 400.1100 (G) Glomerular filtration rate/1.73 sq M.pre dicted [Volume Rate/Area] in Serum or Plasma Greater Than 60 [facility] Note: Responsible Observer: GFR Glomerul ar Filt Rate Calc 400.1605 (D) Alkaline phosphatase [Enzymatic activity/volume] in Se rum or Plasma 83 enzyme_unit_per_liter Normal ALP [facility] ( [facility]) Note: Responsible Observer: ALP Alkaline Phosphatase 400.2000 (G) Anion gap in Serum or Plasma 7 MilliMolesPerLiter_[Substance_Concentration_Units] Below low normal Anion Gap SerPl-sCnc [facility] ([facility]) Note: Responsible Observer: ANION GAP AN ION GAP 400.1402 (E) Albumin [Mass/volume] in Serum or Plasma by Bromocresol purple (BCP) dye binding method 3.8 GramsPerDeciLiter_[Mass_Concentration_Units] Normal Albumin SerPl BCP-mCnc [facility] ([facility]) Note: Responsible Observer: Albumin [place] min 400.2700 (G) Creatinine [Moles/volume] in Vitreous fluid 0.9 MilliGramsPerDeciLiter_[Mass_Concentration_Units] Normal Creatinine [facility] ([facility]) Note: Responsible Observer: Creatinine C reatinine 400.1600 (G) ID Date Data Source [id number] 09/29/2020 08:00:00 AM EST [facility] ([facility]) Name Value Range Interpretation Code Description Data Lucita rce(s) Supporting Document(s) Erythrocyte distribution width [Entitic volume] by Automated cou nt 13 percent Normal RDW RBC Auto [facility] ([facility]) Note: Responsible Observer: RDW RDW 100 .0900 (B) Erythrocyte mean corpuscular volume [Ent itic volume] in Cord blood by Automated count 92.1 FemtoLiter_[SI_Volume_Units] Normal MCV Bld Co Auto [facility] ([facility]) Note: Responsible Observer: MCV MCV 100 .0600 (B) Manual Differential panel - Blood NO Ma nual diff Bld [facility] ([facility]) Note: Responsible Observer: CBC Manual D ifferential Added 100.1990 (B) Platelet mean volume [Entitic volume] in Blood 8.2 FemtoLite r_[SI_Volume_Units] Below low normal PMV Bld [facility] ([facility]) Note: Responsible Observer: MPV MPV 100 .1100 (B) Immature granulocytes [Presence] in Blood by Automated count See No te Normal Imm Granulocytes Bld Ql Auto [facility] ([facility]) Note: [id number] Ob sql server developer: IG% IG% 100.1375 (B) Erythrocyte mean corpuscular hemoglobin concentration [Mass/volume] in Cord blood 33.0 GramsPerDeciLiter_[Mass_Concentration_Units] Normal MCHC BldCo-mCnc [facility] ([facility]) Note: Responsible Observer: MCHC MCHC 1 00.0800 (B) Hematocrit [Volume Fraction] of Blood by Automated count 41.8 perce nt Normal Hct VFr Bld Auto [facility] ([facility]) Note: Responsible Observer: HEMATOCRIT H EMATOCRIT 100.0500 (B) Immature granulocytes [#/volume] in Blood by Automated count 0.0 Un it Imm Granulocytes # Bld Auto [facility] ([facility]) Note: Responsible Observer: IG# IG# 100 .1400 (B) Monocytes/100 leukocytes in Blood by Automated count 6.8 percent Normal Monocytes/leuk NFr Bld Auto [facility] ([facility]) Note: Responsible Observer: MONO % MONO % 100.1225 (B) Hemoglobin [Moles/volume] in Blood 13.8 GramsPerDeciLiter_[Mass_Concentration_Units] Normal Hgb Bld-sCnc [facility] ([facility]) Note: Responsible Observer: HGB HEMOGLOB IN 100.0400 (B) Basophils [#/volume] in Blood by Automated count 0.1 Unit Normal Basophils # Bld Auto [facility] ([facility]) Note: Responsible Observer: BASO # BASO# 100.1350 (B) Leukocytes [#/volume] in Blood by Automated count 10.2 ThousandsPerMicroLiter_[Number_Concentration_Units] Normal WBC # Bld Auto [facility] ([facility]) Note: Responsible Observer: WBC WHITE BL OOD COUNT 100.0100 (E) Basophils/100 leukocytes in Blood by Automated count 0.6 percent Normal Basophils/leuk NFr Bld Auto [facility] ([facility]) Note: Responsible Observer: BASO % BASO % 100.1325 (B) Eosinophils [#/volume] in Blood by Automated count 0.3 Unit Normal Eosinophil # Bld Auto [facility] ([facility]) Note: Responsible Observer: EOS # EOS# 100.1300 (D) Lymphocytes [#/volume] in Blood by Automated count 4.2 Unit Normal Lymphocytes # Bld Auto [facility] ([facility]) Note: Responsible Observer: LYMPH # LYMP H# 100.1200 (B) Eosinophils/100 leukocytes in Blood by Automated count 2.6 percent Normal Eosinophil/leuk NFr Bld Auto [facility] ([facility]) Note: Responsible Observer: EOS % EOS % 100.1275 (B) Lymphocytes/100 leukocytes in Blood by Automated count 41.2 percent Normal Lymphocytes/leuk NFr Bld Auto [facility] ([facility]) Note: Responsible Observer: LYMPH % LYMP H % 100.1175 (B) Monocytes [#/volume] in Blood by Automated count 0.7 Unit Normal Monocytes # Bld Auto [facility] ([facility]) Note: Responsible Observer: MONO # MONO# 100.1250 (C) Neutrophils/100 leukocytes in Blood by Automated count 48.6 percent Normal Neutrophils/leuk NFr Bld Auto [facility] ([facility]) Note: Responsible Observer: NEUT% NEUT% 100.1125 (B) Neutrophils [#/volume] in Blood by Automated count 5.0 Unit Normal Neutrophils # Bld Auto [facility] ([facility]) Note: Responsible Observer: NEUT# NEUT# 100.1150 (B) Platelets [#/volume] in Blood by Automated count 346 ThousandsPerMicroLiter_[Number_Concentration_Units] Normal Platelet # Bld Auto [facility] ([facility]) Note: Responsible Observer: PLATELET COU NT PLATELET COUNT 100.1000 (D) Erythrocyte mean corpuscular hemoglobin [Entitic mass] by Automated count 30.4 PicoGram_[SI_Mass_Units] Normal MCH RBC Qn Auto [place] ([facility]) Note: Responsible Observer: MCH MCH 100 .0700 (B) Erythrocytes [#/volume] in Blood by Automated count 4. 54 MillionsPerMicroLiter_[Number_Concentration_Units] Normal RBC # Bld Auto [facility] ([facility]) Note: Responsible Observer: RBC Red Bloo d Count 100.0300 (B) NUCLEATED RED BLOOD CELL# 0 Unit NUCLEATED RED BLOOD CELL# [facility] ([facility]) Note: Responsible Observer: NRBC# NUCLEA RICHARD RBC 100.1362 (A) NUCLEATED RED BLOOD CELL 0 percent NUCLEATED R ED BLOOD CELL [facility] ([facility]) Note: Responsible Observer: NRBC% NRBC% 100.1360 (B) ID Date Data Source [id number] 09/29/2020 08:00:00 AM EST [facility] ([facility]) Name Value Range Interpretation Code Description Data Lucita rce(s) Supporting Document(s) Reported Physicians See Note Reported Physici ans [facility] ([facility]) Note: Reported Physicians:Ordering: Lc CANNONding: Breanne MERRITT To: Rosalie Oliveira ID Date Data Source [id number] 09/29/2020 08:00:00 AM EST [facility] ([facility]) Name Value Range Interpretation Code Description Data Lucita rce(s) Supporting Document(s) Cholesterol [Moles/volume] in Pericardial fluid 183 MilliGramsPerDeciLiter_[Mass_Concentration_Units] Normal Cholesterol [facility] ([facility]) Note: Responsible Observer: Cholesterol Cholesterol 400.3100 (G) HDL Cholesterol 51 MilliGramsPerDeciLiter_[Mass_Concentration_Units ] HDL Cholesterol [facility] ([facility]) Note: HDL Less than 40 mg/dL: Major ris k for CHDHDL Greater than 59 mg/dL: Low risk for CHDResponsible Observer: HDL HDL Cholesterol 400.3150 (H) LDL Cholesterol, Calc 109 MilliGramsPerDeciLiter_[Mass_Concentra tion_Units] Above high normal LDL Cholesterol, Calc [facility] ([facility]) Note: Responsible Observer: LDL CHOL MARCO C LDL Cholesterol, Calculated [phone] (F) Triglycerides 119 MilliGramsPerDeciLiter_[Mass_Concentration_Units] Normal Triglycerides [facility] ([facility]) Note: Responsible Observer: Triglyceride s Triglycerides [phone] (G) ID Date Data Source [id number] 05/22/2020 05:03:00 AM EDT [facility] ([facility]) Name Value Range Interpretation Code Description Data Lucita rce(s) Supporting Document(s) Microscopic observation [Identifier] in Unspecified specimen by Non- gynecological cytology method Laboratory test result [facility] ([facility] ) SPECIMEN: FNA Left lower lobe thyroid nodule Specimen received in Cytolyt SPECIMEN ADEQUACY: Unsatisfactory for evaluation Sparse cellularity CATEGORIZATION: DESCRIPTIONS: Specimen consists of few scattered hemosiderin laden macrophages and blood elements only. COMMENTS: Lack of follicular component precludes definitive diagnosis. 05/23/2020 - 08 S[address] M C[address] CT(ASCP) 05/23/2020 0806 (Prelim) Signed LAILA SALTER MD 05/23/2020 1348 Procedure Social History No Information Vital Signs ID Date Data Source UNK Name Value Range Interpretation Code Description Data Source(s) Systolic blood pressure 102 mm[Hg] 102 mm[Hg] [facility] ([facility]) Diastolic blood pressure 68 mm[Hg] 68 mm[Hg] [facility] ([facility]) Heart rate 56 /min 56 /min [facility] ([facility]) Respiratory rate 20 /min 20 /min [facility] ([facility]) Body height 64.75 [in_i] 64.75 [in_i] [facility] ([facility]) Body weight 147.5 [lb_av] 147.5 [lb_av] formerly [facility]) Body mass index (BMI) [Ratio] 24.7 kg/m2 24.7 k g/m2 [facility]) Body surface area Derived from formula 1.73 m2 1.73 m2 [facility]) Respiratory rate 18 /min 18 /min [facility] ([facility]) Body temperature 98 [degF] 98 [degF] [facility]) Body height 64.75 [in_i] 64.75 [in_i] [facility]) Body weight 150 [lb_av] 150 [lb_av] [facility]) Body mass index (BMI) [Ratio] 25.2 kg/m2 25.2 k g/m2 [facility]) Body surface area Derived from formula 1.75 m2 1.75 m2 [facility]) Oxygen saturation in Arterial blood by Pulse oximetry 98 % 98 % [facility]) Systolic blood pressure 120 mm[Hg] 120 mm[Hg] [facility] ([facility]) Diastolic blood pressure 82 mm[Hg] 82 mm[Hg] [facility] ([facility]) Heart rate 72 /min 72 /min [facility] ([facility]) Systolic blood pressure 120 mm[Hg] 120 mm[Hg] [facility] ([facility]) Diastolic blood pressure 82 mm[Hg] 82 mm[Hg] [facility] ([facility]) Heart rate 72 /min 72 /min [facility] ([facility]) Respiratory rate 18 /min 18 /min [facility] ([facility]) Body temperature 98 [degF] 98 [degF] [facility] ([facility]) Body height 64.75 [in_i] 64.75 [in_i] [facility] ([facility]) Body weight 150 [lb_av] 150 [lb_av] [facility] ([facility]) Body mass index (BMI) [Ratio] 25.2 kg/m2 25.2 k g/m2 [facility] ([facility]) Body surface area Derived from formula 1.75 m2 1.75 m2 [facility] ([facility]) Oxygen saturation in Arterial blood by Pulse oximetry 98 % 98 % [facility] ([facility]) Systolic blood pressure 120 mm[Hg] 120 mm[Hg] [facility] ([facility]) Diastolic blood pressure 82 mm[Hg] 82 mm[Hg] [facility] ([facility]) Heart rate 72 /min 72 /min [facility] ([facility]) Respiratory rate 18 /min 18 /min [facility] ([facility]) Body temperature 98 [degF] 98 [degF] [facility] ([facility]) Body height 64.75 [in_i] 64.75 [in_i] [facility] ([facility]) Body weight 150 [lb_av] 150 [lb_av] [facility] ([facility]) Body mass index (BMI) [Ratio] 25.2 kg/m2 25.2 k g/m2 [facility] ([facility]) Body surface area Derived from formula 1.75 m2 1.75 m2 [facility] ([facility]) Oxygen saturation in Arterial blood by Pulse oximetry 98 % 98 % [facility] ([facility]) Diastolic blood pressure--supine 60 mm[Hg] 60 mm[Hg] [facility] ([facility]) [place], medium cuff Systolic blood pressure--standing 96 mm[Hg] 96 mm[Hg] [facility] ([facility]) [place], medium cuff Body weight 146.00 [lb_av] 146.00 [lb_av] [facility] ([facility]) Body height 65 [in_i] 65 [in_i] [facility]) 5'5" Body mass index (BMI) [Ratio] 24.3 kg/m2 24.3 k g/m2 [facility] ([facility]) Heart rate 80 /min 80 /min [facility]) regular Respiratory rate 16 /min 16 /min [facility] ( [facility]) nonlabored Systolic blood pressure--sitting 96 mm[Hg] 96 mm[Hg] [facility] ([facility]) [place], medium cuff Diastolic blood pressure--sitting 58 mm[Hg] 58 mm[Hg] [facility] ([facility]) [place], medium cuff Systolic blood pressure--supine 98 mm[Hg] 98 m m[Hg] [facility] ([facility]) [place], medium cuff Diastolic blood pressure--standing 56 mm[Hg] 5 6 mm[Hg] [facility] ([facility]) [place], medium cuff Body height 64.75 [in_i] 64.75 [in_i] [facility] ([facility]) Systolic blood pressure 125 mm[Hg] 125 mm[Hg] [facility]) Body surface area Derived from formula 1.71 m2 1.71 m2 [facility] ([facility]) Diastolic blood pressure 84 mm[Hg] 84 mm[Hg] [facility] ([facility]) Heart rate 87 /min 87 /min [facility] ([facility]) Body height 64.75 [in_i] 64.75 [in_i] [facility] ([facility]) Body weight 142 [lb_av] 142 [lb_av] [facility] ([facility]) Body mass index (BMI) [Ratio] 23.8 kg/m2 23.8 k g/m2 [facility] ([facility]) Body weight 146.25 [lb_av] 146.25 [lb_av] [facility] ([facility] ) Body mass index (BMI) [Ratio] 25.5 kg/m2 25.5 k g/m2 [facility] ([facility] ) Oxygen saturation in Arterial blood by Pulse oximetry 90 % 90 % [facility] ([facility] ) Systolic blood pressure 110 mm[Hg] 110 mm[Hg] M [facility] ([facility]) Diastolic blood pressure 70 mm[Hg] 70 mm[Hg] [facility] ([facility]) Heart rate 88 /min 88 /min [facility] ([facility]) Body height 63.5 [in_i] 63.5 [in_i] [facility] ([facility]) 5'3.50" Systolic blood pressure 122 mm[Hg] 122 mm[Hg] M [facility] ([facility] ) Diastolic blood pressure 80 mm[Hg] 80 mm[Hg] [facility] ([facility] ) Heart rate 76 /min 76 /min [facility] ([facility] ) Body height 63.5 [in_i] 63.5 [in_i] [facility] ([facility]) 5'3.50" Body weight 143.31 [lb_av] 143.31 [lb_av] [facility] ([facility] ) Body mass index (BMI) [Ratio] 25.0 kg/m2 25.0 k g/m2 [facility] ([facility] ) Oxygen saturation in Arterial blood by Pulse oximetry 98 % 98 % [facility] ([facility]) Patient Treatment Plan of Care Planned Activity Planned Date Details Description Data Source (s) Metoclopramide 5 MG Oral Tablet 01/12/2021 12:00:00 AM [facility] ([facility]) Amlodipine 2.5 MG Oral Tablet 01/12/2021 12:00:00 AM [facility] ([facility]) Simvastatin 20 MG Oral Tablet 10/17/2020 12:00:00 AM [facility] hospital) Cyclobenzaprine hydrochloride 10 MG Oral Tablet 08/13/2020 12:00:00 AM [facility] ([facility]) Trazodone Hydrochloride 150 MG Oral Tablet 08/06/2020 12:00:00 AM [facility] ([facility]) Simvastatin 20 MG Oral Tablet 07/25/2020 12:00:00 AM Critical access hospital) Amoxicillin 875 MG / Clavulanate 125 MG Oral Tablet 07/18/20 12:00:00 AM [facility]) Estrogens, Conjugated (MCC) 0.45 MG Oral Tablet [Puja rin] 06/08/2020 12:00:00 AM [facility] ([facility]) Amlodipine 10 MG Oral Tablet 03/06/2020 12:00:00 AM [facility] ([facility]) Estrogens, Conjugated (MCC) 0.45 MG Oral Tablet [Puja rin] 03/05/2020 12:00:00 AM [facility] ([facility]) Trazodone Hydrochloride 150 MG Oral Tablet 11/11/2019 12:00:[address] [facility] ([facility]) Cyclobenzaprine hydrochloride 10 MG Oral Tablet 09/22/2019 12:00:00 AM [facility] ([facility])
[2021-07-16 16:58] LABS: RSV AMPLIFICATION NEGATIVE (NEGATIVE)
[2021-07-16 19:06] VITALS: BP 154/89
[2021-07-16] MEDS ORDERED: traZODone 50 MG TAB PO SCH (21:00)
[2021-07-16] MEDS ORDERED: DOCUSATE SODIUM 100MG CAPSULE PO SCH (21:00)
[2021-07-16] MEDS ORDERED: SIMVASTATIN 20 MG TAB PO SCH (21:00)
[2021-07-16 22:00] VITALS: BP 134/90
[2021-07-17 06:00] VITALS: BP_SYST 116; BP_SYST 124; BP_SYST 128; BP_DIAS 79; BP_DIAS 85; BP_DIAS 88
[2021-07-17 06:56] LABS: HEMATOCRIT 41.3 % (36.0-47.0); HEMOGLOBIN 13.9 g/dl (12.0-15.5); MEAN CORPUSCULAR HEMOGLOBIN 29.6 pg (27.0-33.0); MEAN CORPUSCULAR HGB CONC 33.7 g/dl (32.0-36.5); MEAN CORPUSCULAR VOLUME 88.1 fl (80.0-96.0); PLATELET COUNT, AUTOMATED 351 10^3/uL (150-450); RED BLOOD COUNT 4.69 10^6/uL (4.00-5.40)
[2021-07-17 07:13] LABS: BLOOD UREA NITROGEN 13 MG/DL (7-18); CARBON DIOXIDE LEVEL 30 MEQ/L (21-32); CHLORIDE LEVEL 108 MEQ/L (98-107); CREATININE FOR GFR 0.83 MG/DL (0.55-1.30); GLOMERULAR FILTRATION RATE > 60.0 (>51); GLUCOSE, FASTING 95 MG/DL (70-100); MAGNESIUM LEVEL 2.1 MG/DL (1.8-2.4); SODIUM LEVEL 140 MEQ/L (136-145)
[2021-07-17 08:42] VITALS: BP 151/92
[2021-07-17] MEDS ORDERED: FLUBLOK(EGG FREE)(QUAD)INFLUENZA VACC 0.5ML SYRINGE 18YRS & OLDER IM ONE (09:00)
[2021-07-17] MEDS ORDERED: PANTOPRAZOLE 40MG TAB (PROTONIX) PO SCH (09:00)
[2021-07-17] MEDS ORDERED: METOCLOPRAMIDE 5 MG TAB PO SCH (09:00)
[2021-07-17] MEDS ORDERED: ENOXAPARIN 40MG/0.4ML SYRINGE (J1650 PER 10MG) SC SCH (09:00)
[2021-07-17 09:04] VITALS: BP 136/92
--- NOTE | 2021-07-17 18:29 | DS.PDOC ---
Discharge Summary General Date of Admission Jul 16, 2021 at 13:24 Date of Discharge 07/17/2021 Attending Physician: VESTA WEINER DO Discharge Summary PROCEDURES PERFORMED DURING STAY: None. ADMITTING DIAGNOSES: 1. Syncope. 2. Chest wall pain 3. Hypertension 4. GERD DISCHARGE DIAGNOSES: 1. Syncope. 2. Chest wall pain 3. Hypertension 4. GERD COMPLICATIONS/CHIEF COMPLAINT: Syncope. HISTORY OF PRESENT ILLNESS: Patient is a 55-year-old female who presented to the emergency department with a chief complaint of 1 to 2 weeks of intermittent chest pain. Patient describes the pain is upper left chest pain that radiates down to her left arm. Patient says it feels like it is "in her veins". Patient says that the pain is intermittent does not notice any activities that ex acerbate the pain. Patient does state that she has been ignoring the pain until the patient had passed out this morning. Patient states that she was sitting up in bed after waking up and was about to have her first cigarette of the day when she felt her partner tapping her on the shoulder. Patient apparently had passed out and had woken up immediately afterwards. There was no convulsing. Patient did not lose continence of bowel or bladder during this episode. Patient states that she felt lightheaded prior to this episode and later on the day but did not pass out later on the day. Patient sat down. Patient does not feel dizzy. Patient states that the chest pain was not present at this time but has been present throughout most of the rest of the day. Patient denies any increased co ugh or shortness of breath. Patient's chest pain was not any worse than it had been during this episode. HOSPITAL COURSE: Patient will did well overnight and did not have any acute events on telemetry. Patient states that she was feeling much better and did not have any episodes of syncope throughout the night. Patient had echocardiogram done with a read pending. Patient's orthostatic vitals prior to discharge were within normal limits. Patient felt much better and wanted to go home. Patient was deemed ready for discharge and was discharged home on 07/17/2021. DISCHARGE MEDICATIONS: Please see below. ALLERGIES: Please see below. PHYSICAL EXAMINATION ON DISCHARGE: VITAL SIGNS: Please see below. General: Alert and oriented female patient who was sitting up in bed when I walked in. Patient not appear to be in any acute distress. HEENT: Normocephalic, atraumatic, moist mucous membranes. Neck: No lymphadenopathy or thyromegaly Cardiac: Regular rate and rhythm, no murmurs, normal S1, normal S2 Pulm: Clear to auscultation bilaterally. No wheezes, rhonchi, rales Abd: Nondistended, nontender to palpation, normal bowel sounds Ext: No edema bilateral lower extremities LABORATORY DATA: Please see below. IMAGING: Chest x-ray performed on 07/16/2021 was reported to show no acute cardiopulmonary disease. Left upper extremity ultrasound performed on 07/16/2021 was reported to show negative exam. CT angiogram of the chest performed on 07/16/2021 is reported to show there is no evidence of acute disease. There are multiple stable pulmonary nodules and there is evidence of emphysematous change status quo. PROGNOSIS: Good ACTIVITY: As tolerated. DIET: Regular DISCHARGE PLAN: Discharge home DISPOSITION: 01 Home, Self-Care. DISCHARGE INSTRUCTIONS: 1. Follow-up with primary care provider in 3 to 5 days discharge. 2. Return the emergency department if symptoms worsen ITEMS TO FOLLOWUP ON ON OUTPATIENT: 1. Echocardiogram report. DISCHARGE CONDITION: Stable. TIME SPENT ON DISCHARGE: 25 minutes. Vital Signs/I&Os Vital Signs Date Time Temp Pulse Resp B/P (MAP) Pulse Ox O2 Delivery O2 Flow Rate FiO2 07/17/21 09:04 136/92 (107) 07/17/21 08:42 76 07/17/21 06:00 98.3 17 96 Room Air I&O- Last 24 Hours up to 6 AM 07/17/21 06:00 Intake Total 360 ml Output Total 300 ml Balance 60 ml Laboratory Data Labs 24H Laboratory Tests 2 07/17/21 06:00: Nucleated Red Blood Cells % (auto) 0.0, Anion Gap 2L, Glomerular Filtration Rate > 60.0, Calcium Level 10.0, Magnesium Level 2.1 CBC/BMP Laboratory Tests 07/17/21 06:00 Discharge Medications Scheduled Amlodipine Besylate (Amlodipine Besylate) 2.5 Mg Tablet, 2.5 MG PO DAILY, (Reported) Cyclobenzaprine HCl (Cyclobenzaprine HCl) 10 Mg Tab, 10 MG PO QHS, (Reported) Docusate Sodium (Stool Softener) 100 Mg Cap, 400 MG PO QHS, (Reported) Metoclopramide Hcl (Reglan) 5 Mg Tablet, 5 MG PO DAILY, (Reported) Pantoprazole Sodium (Pantoprazole Sodium) 40 Mg Tablet.dr, 40 MG PO DAILY, (Reported) Simvastatin (Simvastatin) 20 Mg Tab, 20 MG PO QHS, (Reported) Trazodone HCl (Trazodone HCl) 150 Mg Tablet, 150 MG PO QHS, (Reported) Umeclidinium [place] (Incruse Ellipta) 62.5 Mcg Blst.w.dev, 1 PUFF INH QAM, (Reported) Allergies Coded Allergies: lisinopril (Verified Adverse Reaction, Intermediate, cough, 02/14/20) TAPE (Verified Adverse Reaction, Mild, TEARS SKIN OFF, 02/14/20) VESTA WEINER DO Jul 17, 2021 18:29
--- NOTE | 2021-07-18 12:39 | ECHO ---
ECHOCARDIOGRAM DATE OF PROCEDURE: 07/17/2021 Age: 55 Gender: Female Height: 65 inches Weight: 147 pounds Body surface area: 1.74 m2 Inpatient, [facility], room [address] REFERRING PHYSICIAN: Miguel Angel Sim D.O. INDICATION: Syncope. MEASUREMENTS: 2D Measurements: RV - 3.5 cm LV - 4.1 cm Septum 1.1 cm Posterior wall 1.0 cm Aortic root 3.1 cm LA - 3.2 cm LVEF 60% Doppler Measurements: AV - 1.0 m/s LVOT - 0.9 m/s LVOT diameter 2.2 cm MV-E 56, A 70, E/A ratio 0.8 Early mitral deceleration time 204 msec E prime medial 6.5 A prime medial 6.4 E prime lateral 12.3 Average E/E prime ratio 6/PCWP - 9.3 mmHg PV - 0.8 m/s Pulmonary artery acceleration time 141 msec RVSP 23 mmHg IVC - 1.8 cm COMMENTS: Normal sinus rhythm without intraventricular conduction disturbance. M-mode and 2-dimensional echocardiography was performed with pulse, continuous wave, color flow, and tissue Doppler studies. Normal left ventricular size, wall thickness, and wall motion. Normal left atrial size with grade 1 LV diastolic dysfunction but currently normal estimated mean left atrial pressure. Normal right heart chamber sizes, wall motion, and estimated pulmonary arterial pressure. Normal IVC size and collapse against an elevated central venous pressure. Normal aortic dimensions. Normal-appearing and functioning aortic valve. Normal-appearing mitral valve with adequate leaflet excursion and no posterior systolic buckling. Only very mild (physiologic) mitral insufficiency. Normal-appearing tricuspid valve with very mild insufficiency. No apparent intracardiac mass or pericardial effusion.
== END 2021-07-17 12:24 | disposition home or self-care (01) ==
LOC: M ED 13:23 → M ED INP 13:24 → M MSPAV 18:45
PROVIDERS: ADMIT Family Medicine; ATTEND Family Medicine
DX: R55 Syncope and collapse (principal); R07.9 Chest pain, unspecified; I10 Essential (primary) hypertension; K21.9 Gastro-esophageal reflux disease without esophagitis; R91.1 Solitary pulmonary nodule; F17.218 Nicotine dependence, cigarettes, with other nicotine-induced disorders; Z79.899 Other long term (current) drug therapy; Z88.8 Allergy status to other drugs, medicaments and biological substances
CPT/HCPCS: 36415; 71045; 71275; 80048; 80076; 82550; 82553; 83690; 83735; 83880; 84439; 84443; 84484; 85025; 85027; 87631; 90682; 93005; 93041; 93306; 93971; 94760; 96372; 97161; 99285; G0008; G0378; J1650; Q9967

== ENCOUNTER 2021-11-20 19:05 | Emergency (ER) | payer MEDICARE, MEDICAID ==
[~2021-11-20] VITALS: Ht 165.1 cm; Wt 71.0 kg
[~2021-11-20 19:05] MED LIST changes: +AMLO25TA PO; +TRAZ1TAB14 PO
[2021-11-20] MEDS ORDERED: PREM0.45 (19:34)
[2021-11-20 19:40] LABS: BASO # 0.1 10^3/uL (0.0-0.2); BASO % 0.9 % (0.0-1.0); EOS # 0.2 10^3/uL (0.0-0.5); EOS % 2.1 % (0.0-3.0); HEMOGLOBIN 13.5 g/dl (12.0-15.5); LYMPH # 4.5 10^3/uL (1.5-5.0); LYMPH % 45.5 % (24.0-44.0); MEAN CORPUSCULAR HEMOGLOBIN 29.7 pg (27.0-33.0); MEAN CORPUSCULAR HGB CONC 33.8 g/dl (32.0-36.5); MEAN CORPUSCULAR VOLUME 88.1 fl (80.0-96.0); MONO # 0.7 10^3/uL (0.0-0.8); NEUTROPHILS # 4.4 10^3/uL (1.5-8.5); NEUTROPHILS % 44.3 % (36.0-66.0); PLATELET COUNT, AUTOMATED 371 10^3/uL (150-450); RED BLOOD COUNT 4.54 10^6/uL (4.00-5.40); WHITE BLOOD COUNT 9.9 10^3/uL (4.0-10.0)
[2021-11-20 20:11] LABS: CK-MB VALUE MASS < 1.0 NG/ML (<3.6); CPK CREATINE PHOSPHOKINASE 51 U/L (26-192); MB/CK RELATIVE INDEX 1.96 (< OR =4)
[2021-11-20 20:17] LABS: ALBUMIN 3.9 GM/DL (3.2-5.2); ALT/SGPT 23 U/L (12-78); BILIRUBIN,DIRECT < 0.1 MG/DL (0.0-0.2); BILIRUBIN,TOTAL 0.2 MG/DL (0.2-1.0); BLOOD UREA NITROGEN 14 MG/DL (7-18); CALCIUM LEVEL 9.3 MG/DL (8.5-10.1); CARBON DIOXIDE LEVEL 29 MEQ/L (21-32); CHLORIDE LEVEL 107 MEQ/L (98-107); CREATININE FOR GFR 0.88 MG/DL (0.55-1.30); GLOMERULAR FILTRATION RATE > 60.0 (>51); GLUCOSE, FASTING 96 MG/DL (70-100); LIPASE 105 U/L (73-393); POTASSIUM SERUM 3.8 MEQ/L (3.5-5.1); SODIUM LEVEL 140 MEQ/L (136-145); TOTAL PROTEIN 7.3 GM/DL (6.4-8.2)
[2021-11-20] MEDS ORDERED: KETOROLAC 30 MG/ML 1ML VIAL IV ONE (20:20)
[2021-11-20 21:04] LABS: CK-MB VALUE MASS < 1.0 NG/ML (<3.6); CPK CREATINE PHOSPHOKINASE 49 U/L (26-192); MB/CK RELATIVE INDEX 2.04 (< OR =4)
[2021-11-20 22:15] VITALS: BP 147/77
== END 2021-11-20 22:50 | disposition home or self-care (01) ==
LOC: M ED 19:05
DX: R07.89 Other chest pain (principal); E11.9 Type 2 diabetes mellitus without complications; I10 Essential (primary) hypertension; E78.5 Hyperlipidemia, unspecified; J44.9 Chronic obstructive pulmonary disease, unspecified; F17.200 Nicotine dependence, unspecified, uncomplicated; F12.10 Cannabis abuse, uncomplicated; Z79.899 Other long term (current) drug therapy; Z91.89 Other specified personal risk factors, not elsewhere classified; Z88.8 Allergy status to other drugs, medicaments and biological substances
CPT/HCPCS: 71045; 80048; 80076; 82550; 82553; 83690; 84443; 84484; 85025; 93005; 93041; 94760; 96374; 99285; J1885

== ENCOUNTER → 2021-12-24 | Outpatient (CLI) | payer MEDICARE, MEDICAID ==
[~2021-12-24] MED LIST changes: +PREM0.45
== END ==
LOC: M WHC 14:43
PROVIDERS: ATTEND Nurse Practitioner Family
DX: Z12.31 Encounter for screening mammogram for malignant neoplasm of breast (principal); Z78.0 Asymptomatic menopausal state

== ENCOUNTER → 2022-11-20 | Outpatient (CLI) | payer MEDICARE, MEDICAID | LOC: M RAD 08:57 | PROVIDERS: ATTEND Physician Assistant Medical | DX: J32.3 Chronic sphenoidal sinusitis (principal) ==

== ENCOUNTER 2023-04-07 18:08 | Emergency (ER) | payer MEDICARE, MEDICAID ==
[~2023-04-07] VITALS: Ht 165.1 cm; Wt 73.0 kg
[2023-04-07] MEDS ORDERED: PRUC1TAB PO (18:19)
[2023-04-07 20:51] LABS: BASO # 0.1 10^3/uL (0.0-0.2); BASO % 0.5 % (0.0-1.0); EOS % 0.3 % (0.0-3.0); HEMATOCRIT 41.5 % (36.0-47.0); HEMOGLOBIN 13.7 g/dl (12.0-15.5); LYMPH # 3.5 10^3/uL (1.5-5.0); LYMPH % 27.1 % (24.0-44.0); MEAN CORPUSCULAR HEMOGLOBIN 29.5 pg (27.0-33.0); MEAN CORPUSCULAR VOLUME 89.4 fl (80.0-96.0); MONO # 0.8 10^3/uL (0.0-0.8); NEUTROPHILS # 8.5 10^3/uL (1.5-8.5); NEUTROPHILS % 65.6 % (36.0-66.0); PLATELET COUNT, AUTOMATED 355 10^3/uL (150-450); RED BLOOD COUNT 4.64 10^6/uL (4.00-5.40); WHITE BLOOD COUNT 12.9 10^3/uL (4.0-10.0)
[2023-04-07 21:58] LABS: ALBUMIN 4.2 G/DL (3.2-5.2); BILIRUBIN,DIRECT 0.2 MG/DL (<0.4); BILIRUBIN,TOTAL 0.5 MG/DL (0.3-1.2); CALCIUM LEVEL 9.4 MG/DL (8.5-10.1); CREATININE FOR GFR 1.03 MG/DL (0.55-1.30); GLOMERULAR FILTRATION RATE 58.8 (>51); POTASSIUM SERUM 3.6 MMOL/L (3.5-5.1); TOTAL PROTEIN 7.6 G/DL (5.7-8.2)
[2023-04-07] MEDS ORDERED: KETOROLAC 30 MG/ML 1ML VIAL IV ONE (23:20)
[2023-04-07] MEDS ORDERED: NS 1,000 ML IV ONE (23:20)
[2023-04-07] MEDS ORDERED: PROMETHAZINE 25MG/ML 1ML VIAL IV ONE (23:20)
[2023-04-07] MEDS ORDERED: ISOVUE-370 76% 100ML VIAL As Ordered ONE (23:35)
[2023-04-08] MEDS ORDERED: MORPHINE 4 MG/ML 1ML VIAL IV ONE (01:10)
[2023-04-08] MEDS ORDERED: TAMSULOSIN 0.4 MG CAP PO ONE (01:20)
[2023-04-08] MEDS ORDERED: FLOM0.4C39 PO (01:37)
[2023-04-08] MEDS ORDERED: PROM25TA12 PO (01:37)
[2023-04-08] MEDS ORDERED: HYDR-3713 PO (01:37)
[2023-04-08] MEDS ORDERED: ONDANSETRON 4MG 2ML VIAL IV ONE (02:00)
[2023-04-08] MEDS ORDERED: NORCO 5/325MG TABLET (HOME DOSE PACK) PO ONE (02:00)
[2023-04-08 02:54] VITALS: BP 140/83; TEMP 98.1; O2SAT 99
== END 2023-04-08 02:59 | disposition home or self-care (01) ==
LOC: M ED 18:08
DX: N20.1 Calculus of ureter (principal); N13.30 Unspecified hydronephrosis; I10 Essential (primary) hypertension; J44.9 Chronic obstructive pulmonary disease, unspecified; K57.92 Diverticulitis of intestine, part unspecified, without perforation or abscess without bleeding; M54.50 Low back pain, unspecified; F17.200 Nicotine dependence, unspecified, uncomplicated; Z87.442 Personal history of urinary calculi; Z88.8 Allergy status to other drugs, medicaments and biological substances; Z91.048 Other nonmedicinal substance allergy status; Z79.899 Other long term (current) drug therapy
CPT/HCPCS: 74177; 80048; 80076; 81001; 83690; 85025; 87086; 96361; 96374; 96375; 99284; J1885; J2405; J2550; Q9967

== ENCOUNTER 2023-05-25 17:25 | Emergency (ER) | payer MEDICARE, MEDICAID ==
[~2023-05-25] VITALS: Ht 165.1 cm; Wt 69.7 kg
[~2023-05-25 17:25] MED LIST changes: +FLOM0.4C39 PO; +HYDR-3713 PO; +PROM25TA12 PO; +PRUC1TAB PO
[2023-05-25] MEDS ORDERED: AMOX875T2 PO (19:04)
[2023-05-25] MEDS ORDERED: AUGMENTIN 875 MG TAB PO ONE (19:05)
[2023-05-25 19:19] VITALS: BP 135/66; TEMP 98.2; O2SAT 100
== END 2023-05-25 19:20 | disposition home or self-care (01) ==
LOC: M ED 17:25
DX: H66.91 Otitis media, unspecified, right ear (principal); I10 Essential (primary) hypertension; J45.909 Unspecified asthma, uncomplicated; F17.200 Nicotine dependence, unspecified, uncomplicated; F12.10 Cannabis abuse, uncomplicated; F10.10 Alcohol abuse, uncomplicated; F41.9 Anxiety disorder, unspecified; M54.50 Low back pain, unspecified; Z88.8 Allergy status to other drugs, medicaments and biological substances; Z91.048 Other nonmedicinal substance allergy status; Z79.2 Long term (current) use of antibiotics; Z79.899 Other long term (current) drug therapy

== ENCOUNTER 2023-09-12 11:25 | Emergency (ER) | payer MEDICARE, MEDICAID ==
[~2023-09-12] VITALS: Ht 165.1 cm; Wt 58.1 kg
[~2023-09-12 11:25] MED LIST changes: +AMOX875T2 PO
[2023-09-12 11:26] VITALS: BP 152/94; TEMP 98.8; O2SAT 97
[2023-09-12] MEDS ORDERED: DIFL200T PO (12:57)
[2023-09-12] MEDS ORDERED: AMOX875T2 PO (12:57)
== END 2023-09-12 13:15 | disposition home or self-care (01) ==
LOC: M ED 13:05
DX: S61.032A Puncture wound without foreign body of left thumb without damage to nail, initial encounter (principal); W55.01XA Bitten by cat, initial encounter; J44.9 Chronic obstructive pulmonary disease, unspecified; I10 Essential (primary) hypertension; F17.200 Nicotine dependence, unspecified, uncomplicated; F10.10 Alcohol abuse, uncomplicated; Z88.8 Allergy status to other drugs, medicaments and biological substances; Z91.048 Other nonmedicinal substance allergy status; Z88.1 Allergy status to other antibiotic agents; Z79.899 Other long term (current) drug therapy

== ENCOUNTER 2024-03-02 19:14 | Emergency (ER) | payer MEDICARE, MEDICAID ==
[~2024-03-02] VITALS: Ht 165.1 cm; Wt 70.1 kg
[~2024-03-02 19:14] MED LIST changes: +DIFL200T PO
[2024-03-02] MEDS ORDERED: FLUTISP (19:21)
[2024-03-02] MEDS ORDERED: BENZ200C70 PO (22:54)
[2024-03-02] MEDS ORDERED: PRED10TA2 PO (22:54)
[2024-03-02] MEDS ORDERED: HYDR1SYP7 PO (22:54)
[2024-03-02] MEDS: BENZONATATE 100MG CAPSULE PO ONE (23:16)
[2024-03-02] MEDS: predniSONE 20 MG TAB PO ONE (23:16)
[2024-03-02 23:20] VITALS: BP 137/87; TEMP 98.9; O2SAT 93
== END 2024-03-02 23:30 | disposition home or self-care (01) ==
LOC: M ED 19:14
DX: J20.9 Acute bronchitis, unspecified (principal); B34.8 Other viral infections of unspecified site; I10 Essential (primary) hypertension; F41.9 Anxiety disorder, unspecified; F12.10 Cannabis abuse, uncomplicated; F17.200 Nicotine dependence, unspecified, uncomplicated; Z88.8 Allergy status to other drugs, medicaments and biological substances; Z91.048 Other nonmedicinal substance allergy status; Z79.2 Long term (current) use of antibiotics; Z79.52 Long term (current) use of systemic steroids; Z79.899 Other long term (current) drug therapy
CPT/HCPCS: 71046; 87486; 87581; 87633; 87798; 99284; J7512

== ENCOUNTER 2024-07-28 13:10 | Emergency (ER) | payer OTHER, MEDICAID ==
[~2024-07-28] VITALS: Ht 165.1 cm; Wt 68.2 kg
[~2024-07-28 13:10] MED LIST changes: -HOLTER MONITOR XX
[2024-07-28 14:25] LABS: BASO # 0.1 10^3/uL (0.0-0.2); BASO % 0.7 % (0.0-1.0); EOS # 0.1 10^3/uL (0.0-0.5); EOS % 0.8 % (0.0-3.0); HEMATOCRIT 38.9 % (36.0-47.0); HEMOGLOBIN 13.1 g/dl (12.0-15.5); LYMPH # 3.6 10^3/uL (1.5-5.0); LYMPH % 35.4 % (24.0-44.0); MEAN CORPUSCULAR HEMOGLOBIN 29.8 pg (27.0-33.0); MEAN CORPUSCULAR HGB CONC 33.7 g/dl (32.0-36.5); MEAN CORPUSCULAR VOLUME 88.6 fl (80.0-96.0); MONO # 0.5 10^3/uL (0.0-0.8); MONO % 4.7 % (2.0-8.0); NEUTROPHILS # 5.8 10^3/uL (1.5-8.5); PLATELET COUNT, AUTOMATED 378 10^3/uL (150-450); RED BLOOD COUNT 4.39 10^6/uL (4.00-5.40)
[2024-07-28 14:35] LABS: CK-MB VALUE MASS < 1.0 NG/ML (<3.6)
[2024-07-28 14:37] LABS: ALBUMIN 3.4 G/DL (3.2-5.2); ALKALINE PHOSPHATASE 70 U/L (35-104); ALT/SGPT 11 U/L (7.0-40); AST/SGOT 13 U/L (<34); BILIRUBIN,DIRECT < 0.1 MG/DL (<0.4); BILIRUBIN,TOTAL 0.3 MG/DL (0.3-1.2); BLOOD UREA NITROGEN 13 MG/DL (9-23); CALCIUM LEVEL 10.1 MG/DL (8.5-10.1); CARBON DIOXIDE LEVEL 27 MMOL/L (20-31); CHLORIDE LEVEL 108 MMOL/L (98-107); CREATININE FOR GFR 0.76 MG/DL (0.55-1.30); GLOMERULAR FILTRATION RATE > 60.0 (>51); GLUCOSE, FASTING 88 MG/DL (60-100); MAGNESIUM LEVEL 1.9 MG/DL (1.8-2.4); POTASSIUM SERUM 4.1 MMOL/L (3.5-5.1); SODIUM LEVEL 140 MMOL/L (136-145); TOTAL PROTEIN 6.7 G/DL (5.7-8.2)
[2024-07-28 14:41] LABS: CPK CREATINE PHOSPHOKINASE 60 U/L (34-145); MB/CK RELATIVE INDEX 1.66 (< OR =4)
[2024-07-28] MEDS ORDERED: ISOVUE-370 76% 100ML VIAL As Ordered ONE (15:04)
[2024-07-28] MEDS ORDERED: HOLTER MONITOR XX (16:34)
[2024-07-28 16:45] VITALS: BP 156/87; TEMP 97.3; O2SAT 94
== END 2024-07-28 16:51 | disposition home or self-care (01) ==
LOC: M ED 13:10
DX: R07.9 Chest pain, unspecified (principal); R42 Dizziness and giddiness; I10 Essential (primary) hypertension; E78.5 Hyperlipidemia, unspecified; J44.9 Chronic obstructive pulmonary disease, unspecified; K21.9 Gastro-esophageal reflux disease without esophagitis; F41.9 Anxiety disorder, unspecified; F17.200 Nicotine dependence, unspecified, uncomplicated; F12.10 Cannabis abuse, uncomplicated; F10.10 Alcohol abuse, uncomplicated; Z88.8 Allergy status to other drugs, medicaments and biological substances; Z91.048 Other nonmedicinal substance allergy status; Z79.899 Other long term (current) drug therapy
CPT/HCPCS: 36415; 70450; 71045; 71275; 80048; 80076; 82550; 82553; 83735; 84484; 85025; 93005; 93041; 94760; 99285; Q9967

== ENCOUNTER → 2024-07-28 | Outpatient (CLI) | payer OTHER, MEDICAID ==
[~2024-07-28] MED LIST changes: +BENZ200C70 PO; +FLUTISP; +HOLTER MONITOR XX; +HYDR1SYP7 PO; +PANT20TA6 PO; +PRED10TA2 PO; -PREM0.45; +PREM0.45 PO; +PRUC2TAB PO; +SIMV40TA20 PO
== END ==
LOC: M EKG 16:57
PROVIDERS: ATTEND Emergency Medicine
DX: R00.2 Palpitations (principal)

== ENCOUNTER 2024-09-15 07:25 | Emergency (ER) | payer OTHER, MEDICAID ==
[~2024-09-15] VITALS: Ht 165.1 cm; Wt 68.5 kg
[~2024-09-15 07:25] MED LIST changes: +HOLTER MONITOR XX
[2024-09-15] MEDS ORDERED: VENTAER INH (08:52)
[2024-09-15] MEDS ORDERED: DELS1LIQ3 PO (08:52)
[2024-09-15] MEDS ORDERED: PRED20TA PO (08:52)
[2024-09-15] MEDS ORDERED: VALT1TAB PO (08:52)
[2024-09-15] MEDS ORDERED: AMOX875T2 PO (08:52)
[2024-09-15] MEDS: predniSONE 20 MG TAB PO ONE (08:55)
[2024-09-15] MEDS: IPRATROPIUM 0.5MG/ALBUTEROL 2.5MG INH SOL UD 3ML (DUONEB) NEB ONE (08:56)
[2024-09-15 09:25] VITALS: BP 138/85; TEMP 97.4; O2SAT 99
== END 2024-09-15 09:27 | disposition home or self-care (01) ==
LOC: M ED 07:25
DX: J44.1 Chronic obstructive pulmonary disease with (acute) exacerbation (principal); B34.8 Other viral infections of unspecified site; J01.90 Acute sinusitis, unspecified; J45.909 Unspecified asthma, uncomplicated; M54.50 Low back pain, unspecified; F17.200 Nicotine dependence, unspecified, uncomplicated; F12.10 Cannabis abuse, uncomplicated; Z88.8 Allergy status to other drugs, medicaments and biological substances; Z91.048 Other nonmedicinal substance allergy status; Z79.52 Long term (current) use of systemic steroids; Z79.2 Long term (current) use of antibiotics; Z79.899 Other long term (current) drug therapy
CPT/HCPCS: 71046; 87486; 87581; 87633; 87798; 99284; J7512

== ENCOUNTER → 2025-04-18 | Outpatient (CLI) | payer MEDICARE, MEDICAID ==
[~2025-04-18] MED LIST changes: +DELS1LIQ3 PO; -FLOM0.4C39 PO; +PRED20TA PO; +TAMS-18 PO; +VALT1TAB PO; +VENTAER INH
== END ==
LOC: M WHC 16:32 → M PLALAB 16:32
DX: Z12.31 Encounter for screening mammogram for malignant neoplasm of breast (principal); R92.313 Mammographic fatty tissue density, bilateral breasts

== ENCOUNTER → 2025-05-03 | Outpatient (CLI) | payer MEDICARE, MEDICAID | LOC: M WHC 09:28 | DX: R92.0 Mammographic microcalcification found on diagnostic imaging of breast (principal); N60.12 Diffuse cystic mastopathy of left breast; R59.0 Localized enlarged lymph nodes ==